=== PATIENT | female | born 1940 | race Caucasian/White ===

== ENCOUNTER 2022-11-09 10:11 | Day surgery (SDC) | payer MEDICARE, BC, OTHER, SELFPAY ==
[2022-11-09] MEDS: TETRACAINE 0.5% OPHTH 1 DROP EYE-LEFT ×2 (10:42→10:51)
[2022-11-09 10:47] VITALS: BMI 19.3
[2022-11-09] MEDS: KETOROLAC OPHTH 0.5% 1 DROP EYE-LEFT ×3 (10:49→11:09)
[2022-11-09 11:07] VITALS: BP 122/69; PULSE 58; RESP 16; TEMP 36.5; O2SAT 97
[2022-11-09] MEDS: SODIUM CHLORIDE 0.9 % (FLUSH) 10 ML SYRINGE IVF (11:11)
[2022-11-09] MEDS: TETRACAINE 0.5% OPHTH 2 DROP EYE-LEFT (12:14)
[2022-11-09] MEDS: BALANCED SALT IRRIG SOLN 15 ML EYE-LEFT (12:19)
--- NOTE | 2022-11-09 12:23 | W.ANESCHARGE ---
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
[2022-11-09 12:45] VITALS: BP 148/62; PULSE 58; RESP 16; TEMP 36.4; O2SAT 97
[2022-11-09] MEDS: ACETAMINOPHEN 500 MG TABLET 1000 MG PO (13:20)
--- NOTE | 2022-11-09 13:48 | P.OPTPRC_ITS ---
Procedure Note Date of procedure: 11/09/22 Will [facility] bill your pro fee for this procedure?: Yes Procedure Description: SURGEON: Tammy Martin MD PREOPERATIVE DIAGNOSIS: Nuclear sclerotic cataract, left eye. POSTOPERATIVE DIAGNOSIS: Nuclear sclerotic cataract, left eye. NAME OF OPERATION: Phacoemulsification of cataract with posterior chamber intraocular lens implantation in the left eye. ANESTHESIA: Topical. ESTIMATED BLOOD LOSS: Less than 2 cc. COMPLICATIONS: None. PATHOLOGY SPECIMEN: None. INDICATIONS: See consult note for details. The risks, benefits and alternatives of the procedure were explained to the patient, who elected to proceed and sign ed informed consent to do so. PROCEDURE: The patient was brought to the pre-holding area where the left eye was identified as the operative eye. I placed my initials above this eye. The patient received eye drops consisting of 0.5% tetracaine, 1% tropicamide, 10% phenylephrine, and 0.5% ketorolac. The patient was then brought to the operating room where the left eye was again identified as the operative eye. The eye was prepped with Betadine and draped in the usual sterile ophthalmic fashion. A #15 super-sharp blade was used to create a paracentesis site. 1% non-preserved intracameral lidocaine was injected into the anterior chamber. Endocoat was injected into the anterior chamber. A 2.4 mm keratome was used to create a three-plane self-sealing incision 1 mm anterior to the temporal limbus. A cystotome was used to create an anterior capsular leaflet. The Utrata forceps were used to extend this to form a continuous curvilinear capsulorrhexis. Hydrodissection was performed. The cataract was removed with phacoemulsification using the [id number] technique. The irrigation and aspiration tip was used to remove the remaining cortex. Healon was injected into the capsular bag. An ERIC ZCB00 intraocular lens of 20.5 diopters was injected into the capsular bag. The irrigation and aspiration tip was used to remove the remaining viscoelastic. Miostat was injected into the anterior chamber. Balanced salt solution on a cannula was used to hydrate the wound, and the wound was found to be watertight. The pupil was noted to be round. DISPOSITION: The patient was taken to the recovery room and discharged to home in stable condition. The patient was instructed to call me or go to the emergency department with any sudden change, including dramatic loss of vision, severe pain in the eye or eyebrow region, nausea, or vomiting. The patient will follow up in the clinic tomorrow morning. Surgeon: Tammy Martin MD
== END 2022-11-09 13:26 | disposition home or self-care (01) ==
PROVIDERS: PCP Family Medicine; Visit Provider Ophthalmology
PROC: (CPT 66984; principal; 2022-11-09 10:30)
DX: H25.12 Age-related nuclear cataract, left eye (principal)
CPT/HCPCS: 66984; 00142; 99100; A9270; J2250; J3010; V2632

== ENCOUNTER 2022-12-14 07:59 | Day surgery (SDC) | payer MEDICARE, BC, OTHER, SELFPAY ==
[2022-12-14] MEDS: TETRACAINE 0.5% OPHTH 1 DROP EYE-RIGHT ×2 (08:10→08:19)
[2022-12-14] MEDS: KETOROLAC OPHTH 0.5% 1 DROP EYE-RIGHT ×3 (08:17→08:29)
[2022-12-14 08:18] VITALS: BMI 19.9
[2022-12-14 08:25] VITALS: BP 122/67; PULSE 61; RESP 20; TEMP 36.7; O2SAT 97
[2022-12-14] MEDS: SODIUM CHLORIDE 0.9 % (FLUSH) 10 ML SYRINGE IVF (08:36)
--- NOTE | 2022-12-14 10:10 | W.ANESCHARGE ---
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
[2022-12-14] MEDS: TETRACAINE 0.5% OPHTH 2 DROP EYE-RIGHT (10:14)
[2022-12-14] MEDS: BALANCED SALT IRRIG SOLN 15 ML EYE-RIGHT (10:19)
--- NOTE | 2022-12-14 10:19 | P.ANES_ITS ---
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
[2022-12-14 10:47] VITALS: BP 145/64; PULSE 58; RESP 16; TEMP 36.7; O2SAT 99
--- NOTE | 2022-12-14 12:59 | W.PM.OPTPROC ---
Procedure Note Date of procedure: 12/14/22 Will [facility] bill your pro fee for this procedure?: Yes Procedure Description: SURGEON: Tammy Martin MD PREOPERATIVE DIAGNOSIS: Nuclear sclerotic cataract, right eye. POSTOPERATIVE DIAGNOSIS: Nuclear sclerotic cataract, right eye. NAME OF OPERATION: Phacoemulsification of cataract with posterior chamber intraocular lens implantation in the right eye. ANESTHESIA: Topical. ESTIMATED BLOOD LOSS: Less than 2 cc. COMPLICATIONS: None. PATHOLOGY SPECIMEN: None. INDICATIONS: See consult note for details. The risks, benefits and alternatives of the procedure were explained to the patient, who elected to proceed and signed informed consent to do so. PROCEDURE: The patient was brought to the pre-holding area where the right eye was identified as the operative eye. I placed my initials above this eye. The patient received eye drops consisting of 0.5% tetracaine, 1% tropicamide, 10% phenylephrine, and 0.5% ketorolac. The patient was then brought to the operating room where the right eye was again identified as the operative eye. The eye was prepped with Betadine and draped in the usual sterile ophthalmic fashion. A #15 super-sharp blade was used to create a paracentesis site. 1% non-preserved intracameral lidocaine was injected into the anterior chamber. Endocoat was injected into the anterior chamber. A 2.4 mm keratome was used to create a three-plane self-sealing incision 1 mm anterior to the temporal limbus. A cystotome was used to create an anterior capsular leaflet. The Utrata forceps were used to extend this to form a continuous curvilinear capsulorrhexis. Hydrodissection was performed. The cataract was removed with phacoemulsification using the [id number] technique. The irrigation and aspiration tip was used to remove the remaining cortex. Healon was injected into the capsular bag. An ERIC ZCB00 intraocular lens of 20.5 diopters was injected into the capsular bag. The irrigation and aspiration tip was used to remove the remaining viscoelastic. Miostat was injected into the anterior chamber. Balanced salt solution on a cannula was used to hydrate the wound, and the wound was found to be watertight. The pupil was noted to be round. DISPOSITION: The patient was taken to the recovery room and discharged to home in stable condition. The patient was instructed to call me or go to the emergency department with any sudden change, including dramatic loss of vision, severe pain in the eye or eyebrow region, nausea, or vomiting. The patient will follow up in the clinic tomorrow morning. Surgeon: Tammy Martin MD
== END 2022-12-14 11:15 | disposition home or self-care (01) ==
LOC: OR 07:59
PROVIDERS: PCP Family Medicine; Visit Provider Ophthalmology
PROC: (CPT 66984; principal; 2022-12-14 08:15)
DX: H25.11 Age-related nuclear cataract, right eye (principal)
CPT/HCPCS: 66984; 00142; 99100; A9270; J2250; J3010; V2632

== ENCOUNTER 2022-12-31 19:21 | Emergency (ER) | payer MEDICARE, BC, OTHER, SELFPAY ==
[2022-12-31 19:29] VITALS: BP 147/69; PULSE 59; RESP 20; TEMP 37.1; O2SAT 100; BMI 19.2
--- NOTE | 2022-12-31 19:37 | CRLHL7_ITS ---
For Patients: As a result of the Cures Act, medical imaging exams and procedure reports are released immediately into your electronic medical record. You may view this report before your referring provider. If you have questions, please contact your health care provider. INDICATION: Fall, head lac posterior. COMPARISON: None. TECHNIQUE: CT of the head without IV contrast. Coronal and sagittal reconstructions. FINDINGS: No intracranial hemorrhage, mass effect, or evidence of acute infarct. No midline shift. No abnormal extra-axial fluid collections. Mild to moderate generalized cerebral and cerebellar volume loss with associated ex vacuo dilation of the lateral ventricles. Orbits and extraocular muscles are symmetric. The visualized paranasal sinuses and mastoid air cells are clear. No acute fracture identified. Minimal soft tissue irregularity in the right posterior parietal scalp. No significant soft tissue swelling. IMPRESSION: 1. No acute intracranial findings. 2. Minimal soft tissue irregularity in the right posterior parietal scalp likely represents the site of laceration. No significant soft tissue swelling. Please note that all CT scans at this facility use dose modulation, iterative reconstruction, and/or weight-based dosing when appropriate to reduce radiation dose to as low as reasonably achievable. Dictated by Lindsey Storm MD @ 12/31/2022 8:42:27 PM (Electronically Signed)
--- NOTE | 2022-12-31 19:59 | ED.GENADULT ---
HPI - General Adult General Date Seen: 12/31/22 Chief complaint: Laceration/Wound Stated complaint: fell, split back of head Time Seen by Provider: 12/31/22 19:34 Source: patient Mode of arrival: ambulatory Limitations: no limitations History of Present Illness HPI narrative: Patient is an 82-year-old woman, she lives independently, here with her son for evaluation of a scalp laceration. She says that she lost her balance and fell backward, hitting it on an antique love seat with a sharp edge. She says that she did not lose consciousness. She denies significant headache, nausea, or other symptoms. She does not take any anticoagulants aside from a baby aspirin. She denies neck pain. The wound was continuing to bleed and they were concerned that the edges would not stay together without attention and so she comes in for evaluation. No recent other injuries or illnesses. Related Data Home Medications Medication Instructions Recorded Confirmed acetaminophen 500 mg tablet 500 mg PO Q6H PRN 11/07/22 12/31/22 aspirin 81 mg chewable tablet 81 mg PO DAILY 11/07/22 12/31/22 atorvastatin 20 mg tablet 20 mg PO DAILY 11/07/22 12/31/22 cholecalciferol (vitamin D3) 25 1,000 unit PO DAILY 11/07/22 12/31/22 mcg (1,000 unit) capsule docusate sodium 100 mg capsule 100 mg PO BID PRN 11/07/22 12/31/22 (Colace) levothyroxine 25 mcg capsule 25 mcg PO DAILY 11/07/22 12/31/22 metoprolol succinate 25 mg 25 mg PO DAILY 11/07/22 12/31/22 tablet,extended release 24 hr mirtazapine 15 mg tablet 15 mg PO QHS 11/07/22 12/31/22 multivitamin (Daily Multi-Vitamin 1 tab PO DAILY 11/07/22 12/31/22 tablet) quinapril 10 mg tablet (Accupril) 10 mg PO DAILY 11/07/22 12/31/22 ketorolac 0.5 % eye drops 1 drp ophthalmic (eye) QID 12/31/22 12/31/22 prednisolone acetate 1 % eye 1 drp ophthalmic (eye) QID 12/31/22 12/31/22 drops,suspension Allergies Allergy/AdvReac Type Severity Reaction Status Date / Time Penicillins Allergy Unknown Verified 12/31/22 19:28 Sulfa (Sulfonamide Allergy Unknown Verified 12/31/22 19:28 Antibiotics) Review of Systems Status of ROS: Reports: 6 or more systems reviewed and unremarkable except as noted in History and below [facility] Medical History Acquired hyperlipoproteinemia ?E78.5 - Hyperlipidemia, unspecified (ICD-10) Cataract ?H26.9 - Unspecified cataract (ICD-10) Episodic atrial fibrillation ?I48.0 - Paroxysmal atrial fibrillation (ICD-10) Essential (primary) hypertension ?I10 - Essential (primary) hypertension (ICD-10) Hypothyroidism ?E03.9 - Hypothyroidism, unspecified (ICD-10) Osteopenia of multiple sites ?M85.89 - Other specified disorders of bone density and structure, multiple sites (ICD-10) Surgical History History of repair of hiatal hernia ?Z98.890 - Other specified postprocedural states (ICD-10) ?Z87.19 - Personal history of other diseases of the digestive system (ICD-10) S/P CABG x 3 ?Z95.1 - Presence of aortocoronary bypass graft (ICD-10) Social History Smoking Status: Former smoker How often do you have a drink containing alcohol: never AUDIT-C Alcohol total score: 0 Non-prescribed substance use: denies use Caffeine: No Exam Narrative: Exam Narrative: Vital signs reviewed In general, an alert, well-appearing elderly woman. Head: Normocephalic. On the right posterior scalp she has a just over 1 cm laceration. Bleeding is controlled. Small underlying hematoma is noted. Remainder the head is atraumatic. Neck: Nontender to palpation. Eyes: Pupils are equal and reactive. ENT: No facial trauma. Heart: Regular rate and rhythm. Lungs: Clear. No increased work of breathing. Neurologic: She is alert, conversant, oriented to person and place, gait stable. Skin: Warm and dry, no rash or lesion. 0. Const: Vital Signs, click to edit/add: Vital Signs - 24 hr 12/31/22 19:29 Temperature 98.7 F Pulse Rate [Left P ulse Oximeter] 59 L Respiratory Rate 20 Blood Pressure [Ri ght Upper Arm] 147/69 H Pulse Oximetry 100 Oxygen Delivery Me thod Room Air Nasal Can nula Documenting provider has reviewed patient's vital signs: yes Course Course Hospital Course: I recommended a CT of the head given her age and scalp hematoma. Regarding the scalp laceration, I felt it would be reasonable to close this using hair apposition. Procedure note: The wound was cleaned using normal saline, explored there is no evidence of foreign body. Edges were approximated and held in place with hair apposition. Dermabond was applied. She tolerated this well without immediate complication. CT of the head by my review is negative for hemorrhage or other acute findings. Final radiology report is negative aside from some swelling noted at the site of the laceration. Wound care discussed. Return for signs of infection or changes in mentation, severe headache, vomiting, etcetera. Vital Signs Vital signs: Initial Vital Signs Temperature 98.7 F 12/31/22 19:29 Temperature Source Temporal Artery Scan 12/31/22 19:29 Pulse Rate 59 L 12/31/22 19:29 Pulse Rhythm Regular 12/31/22 19:29 Pulse Strength 3+ Normal 12/31/22 19:29 Respiratory Rate 20 12/31/22 19:29 Blood Pressure 147/69 H 12/31/22 19:29 Blood Pressure Mean 95 12/31/22 19:29 Blood Pressure Position Sitting 12/31/22 19:29 Pulse Oximetry 100 12/31/22 19:29 Oxygen Delivery Method Room Air, Nasal Cannula 12/31/22 19:29 Vital Signs Temperature 98.7 F 12/31/22 19:29 Pulse Rate 59 L 12/31/22 19:29 Respiratory Rate 20 12/31/22 19:29 Blood Pressure 147/69 H 12/31/22 19:29 Pulse Oximetry 100 12/31/22 19:29 Oxygen Delivery Method Room Air, Nasal Cannula 12/31/22 19:29 Temperature 98.7 F 12/31/22 19:29 Pulse Rate 59 L 12/31/22 19:29 Respiratory Rate 20 12/31/22 19:29 Blood Pressure 147/69 H 12/31/22 19:29 Pulse Oximetry 100 12/31/22 19:29 Oxygen Delivery Method Room Air, Nasal Cannula 12/31/22 19:29 Discharge Plan Discharge Clinical Impression: Laceration of scalp Patient Disposition: Home, Self-Care Condition: Improved Instructions: Laceration (ED), Skin Adhesive Care (ED) Additional Instructions: Routine wound care. As discussed, after about 10 days if the Dermabond has not sloughed off yet, acetone nail Bel[place]ian remover or antibiotic ointment left on the wound for about 30 minutes will soften the glue so that it can be more easily removed. Return to the emergency department for signs of infection, severe headache, vomiting, confusion or other changes. CT of the head today is normal without any evidence of intracranial bleeding. Prescriptions: No Action acetaminophen 500 mg tablet 500 mg PO Q6H PRN aspirin 81 mg tablet,chewable 81 mg PO DAILY atorvastatin 20 mg tablet 20 mg PO DAILY cholecalciferol (vitamin D3) 25 mcg (1,000 unit) capsule 1,000 unit PO DAILY docusate sodium [Colace] 100 mg capsule 100 mg PO BID PRN levothyroxine 25 mcg capsule 25 mcg PO DAILY metoprolol succinate 25 mg tablet extended release 24 hr 25 mg PO DAILY mirtazapine 15 mg tablet 15 mg PO QHS multivitamin [Daily Multi-Vitamin] Tablet 1 tab PO DAILY quinapril [Accupril] 10 mg tablet 10 mg PO DAILY ketorolac 0.5 % drops 1 drp ophthalmic (eye) QID prednisolone acetate 1 % drops,suspension 1 drp ophthalmic (eye) QID Follow Up/Referrals: Natalia Everett DO [Primary Care Provider] - Stand Alone Forms: [facility] Info Instructions
[2022-12-31] MEDS: TETANUS/DIPHTH/PERTUSSIS 0.5 ML SYRINGE IM (20:09)
== END 2022-12-31 21:24 | disposition home or self-care (01) ==
PROVIDERS: Emergency Provider Emergency Medicine; PCP Family Medicine
DX: S01.01XA Laceration without foreign body of scalp, initial encounter (principal); W01.190A Fall on same level from slipping, tripping and stumbling with subsequent striking against furniture, initial encounter; Z23 Encounter for immunization
CPT/HCPCS: 12001; 70450; 90471; 90715; 99283; 99284

== ENCOUNTER 2023-10-20 10:47 | Outpatient (CLI) | payer MEDICARE, BC, OTHER, SELFPAY ==
--- OUTSIDE RECORDS SUMMARY | 2023-10-20 10:53 | XMS_ITS | Clinical Summary ---
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 Max acetaminophen dose: 4000mg in 24 hrs. 0 05/27/2022 Active docusate (COLACE) 100 mg capsule Take 1 Capsule (100 mg) by mouth 2 times daily if needed for Constipation. 0 05/27/2022 Active aspirin chewable 81 mg chewable tablet Chew 1 Tablet (81 mg) by mouth once daily with a meal. 0 05/27/2022 Active cholecalciferol (VITAMIN D3) 1,000 unit capsule Take 1 Capsule (1,000 units) by mouth once daily. 0 09/16/2022 Active multivitamin (MVI) tablet Take 1 Tablet by mouth once daily. 0 09/16/2022 Active ondansetron (ZOFRAN ODT) 4 mg disintegrating tabletIndications:D iaphragmatic hernia without obstruction and without gangrene Place 1 Tablet (4 mg) on the tongue every 8 hours if needed for Nausea/Vomiting. 15 Tablet 0 10/13/2022 Active polyethylene glycoL (MIRALAX) 17 gram/scoop powderIndications:D iaphragmatic hernia without obstruction and without gangrene Mix 1 scoop (17 g) in liquid then take by mouth once daily. Take one dose in water daily until bowels are easy and regular. Then return to your daily Colace. 510 g 0 10/14/2022 Active atorvastatin (LIPITOR) 20 mg tabletIndications:M ixed hyperlipidemia Take 1 Tablet (20 mg) by mouth at bedtime. 90 Tablet 3 10/11/2023 Active levothyroxine (SYNTHROID) 25 mcg tabletIndications:H ypothyroidism (acquired) Take 1 Tablet (25 mcg) by mouth once daily. 90 Tablet 3 10/11/2023 Active mirtazapine (REMERON) 15 mg tabletIndications:I nsomnia, idiopathic,Poor appetite,Anxiety Take 1 Tablet (15 mg) by mouth at bedtime. 90 Tablet 3 10/11/2023 Active metoprolol succinate (TOPROL XL) 25 mg Sustained-Release tabletIndications:H TN (hypertension) Take 1 Tablet (25 mg) by mouth once daily. 90 Tablet 3 10/11/2023 Active lisinopriL (PRINIVIL; ZESTRIL) 10 mg tabletIndications:H TN (hypertension) Take 1 Tablet (10 mg) by mouth once daily. 90 Tablet 3 10/11/2023 Active fluocinonide 0.05 TOPICAL (LIDEX) 0.05 % external solutionIndications :Atopic dermatitis of scalp Apply topically to affected area(s) two times daily for 14 days. 60 mL 0 10/11/2023 10/25/19 24 Active levothyroxine (SYNTHROID) 25 mcg tabletIndications:H ypothyroidism (acquired) Take 1 Tablet (25 mcg) by mouth once daily. 90 Tablet 3 07/06/2022 10/10/19 24 Discontinu ed(Reorder (E-cancel not sent)) atorvastatin (LIPITOR) 20 mg tabletIndications:M ixed hyperlipidemia Take 1 Tablet (20 mg) by mouth at bedtime. 90 Tablet 3 07/06/2022 10/10/19 24 Discontinu ed(Reorder (E-cancel not sent)) lidocaine 5 % topical patchIndications:Ri b pain on left side Apply on dry, clean, hairless skin. Apply 1 patch to painful area of skin for up to to 12 hours within 24 hour period. 30 Patch 11 10/26/2022 10/11/19 24 Discontinu ed(*Patien t states no longer taking) ketorolac 0.5 % ophthalmic (ACULAR) solution 1 DROP TO OPERATIVE EYE 4 TIMES A DAY STARTING AFTER SURGERY 0 10/27/2022 10/11/19 24 Discontinu ed(*Patien t states no longer taking) prednisoLONE acetate 1% ophthalmic (ECONOPRED PLUS, PRED FORTE, OMNIPRED) suspension 1 DROP TO OPERATIVE EYE 4 TIMES A DAY STARTING AFTER SURGERY 0 10/27/2022 10/11/19 24 Discontinu ed(*Patien t states no longer taking) ofloxacin 0.3 % ophthalmic (OCUFLOX) 0.3 % ophthalmic solution 1 DROP TO OPERATIVE EYE 4 TIMES A DAY STARTING MONDAY BEFORE SURGERY 0 10/27/2022 10/11/19 24 Discontinu ed(*Patien t states no longer taking) lisinopriL (PRINIVIL; ZESTRIL) 10 mg tabletIndications:H TN (hypertension) Take 1 Tablet (10 mg) by mouth once daily. 90 Tablet 3 01/27/2023 10/10/19 Discontinu ed(Reorder (E-cancel not sent)) mirtazapine (REMERON) 15 mg tabletIndications:I nsomnia, idiopathic,Poor appetite,Anxiety TAKE 1 TABLET BY MOUTH AT BEDTIME 90 Tablet 0 08/11/2023 10/10/19 Discontinu ed(Reorder (E-cancel not sent)) metoprolol succinate (TOPROL XL) 25 mg Sustained-Release tabletIndications:H TN (hypertension) TAKE 1 TABLET BY MOUTH EVERY DAY 90 Tablet 0 08/25/2023 10/10/19 24 Discontinu ed(Reorder (E-cancel not sent)) Active Problems Problem Noted Date Diagnosed Date Osteopenia of multiple sites 07/06/2022 Hypothyroidism (acquired) 05/27/2022 HTN (hypertension) 05/27/2022 Hyperlipidemia, unspecified 05/27/2022 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 Diaphragmatic hernia without obstruction and without gangrene Encounters Date Type Department Care Team Description 10/13/2023 Telephone [facility] [address] [place] [address] Natalia Everett DO Follow Up (Preop appointment) 10/11/2023 3:00 PM [employer] Office Visit [facility] [address] [place] [address] Luis Antonio Acevedo MD Consult (Difficulty swallowing x 4 months, foods get stuck, uses liquids with meals to pass, vitamins get stuck) 10/11/2023 8:05 AM [employer] Office Visit [address] [address] Natalia Everett DO Medicare ANNUAL (subsequent) Visit (83 year old female); Throat Problem (Difficulty swallowing - worse in the evening - did choke 6 weeks ago); Arm Pain/problem (Pain in L arm, worse with trying to dress - thinks this is due to arthritis in back); Sleep Problem (If she falls asleep while resting during the day will be up all night, this happens 1-2x/month); Derm Problem (Pt reports picking at her scalp) 10/11/[address] [address] Luis Antonio Acevedo MD Pre Procedure (EGD) 10/11/2023 Travel 09/06/2023 3:50 PM [employer] Phone Office Visit [address] [address] Natalia Everett DO Phone Visit (COVID-19 +, discuss Paxlovid - cough, runny nose, hoarsness - symptoms started Tuesday 09/04 - no SOB) 09/05/[address] [address] Natalia Everett DO Covid-19 Positive Result (09/05/2023 via over the counter nasal swab testing kit) 08/25/2023 Refill [facility] [address] [place] [address] Marguerite Natalia Lauren, DO Refill Request (Metoprolol Succinate) 08/11/2023 Refill [facility] [address] [place] [address] Sir Everetti Lauren, DO Refill Request (Mirtazapine) from Last 3 Months Immunizations Name Administration Dates Next Due COVID-19 vaccine (Moderna 10 0mcg/0.5mL) PF, MDV 08/03/2021,11/18/2020,10/21/2020 COVID-19 vaccine (Moderna Earnest kelley 50mcg/0.25mL) PF, MDV 01/20/2022 COVID-19 vaccine ([employer] 30mcg/0.3mL) 12YO+ BIVALENT PF, MDV 07/06/2022 Influenza, High-dose Inactivated 07/02/2021,11/2018,07/21/2017 Influenza, High-dose Quadriv alent Inactivated 07/07/2022 Influenza, IIV3 (Age 6-35 mos) 07/17/2014,2012,07/16/2012 Influenza, IIV3 (Age >=3 years) 07/08/2011,07/13 Influenza, IIV4 07/05/2018,07/08/2016,07/15/2015 Influenza, Inactivated AIIV4 (Age 65+ Years) Preserv Free 06/28/2023 Influenza,CCIIV4 PRESERV FREE 06/17/2020 Pneumococcal Poly,23-Valent (Pneumovax) 05/17/20 11 Pneumococcal conj 13-Valent (Prevnar 13) 015 Tdap 12/31/2022,07/02/2013 Zoster (Shingrix-RZV, recombinant) 02/19/2022, Social History Tobacco Use Types Packs/Day Years Used Date Smoking Tobacco: Former Cigarettes 1 2 0 10/02/1960 - 10/02/1962 Smokeless Tobacco: Never Tobacco Cessation:Counseling Given: Yes Comments:Quit smoking in my 30s Alcohol Use Standard Drinks/Week Comments Not Currently 0 (1 standard drink = 0.6 oz pur e alcohol) No liquor for 12 years PHQ-2 Answer Date Recorded PHQ-2 TOTAL SCORE 0 10/11/2023 Social Connections Answer Date Recorded Frequency of Communication with Friends and Fami ly Not on file 04/06/2023 Financial Resource Strain Answer Date R ecorded Difficulty of Paying Living Expenses 3 04/05/2022 Difficulty of Paying Living Expenses Not on file 04/05/2022 Food Insecurity Answer Date Recorded Worried About Running Out of Food in the Last Ye ar 1 04/05/2022 Transportation Needs Answer Date Record ed Lack of Transportation (Medical) 1 04/05/2022 Housing Stability Answer Date Recorded Unable to Pay for Housing in the Last Year 1 04/05/2022 Sex and Gender Information Value Date Recorded Sex Assigned at Not on file Gender Identity Not on file Sexual Orientation Not on file Obstetrics History Last Filed Vital Signs Vital Sign Reading Time Taken Comments Blood Pressure 138/64 10/11/2023 2:57 PM [employer] Pulse 55 10/11/2023 2:57 PM [employer] Temperature 36.6 ??C (97.8 ??F) 11/30/2022 10:[address] Respiratory Rate 16 10/13/2022 9:27 AM [employer] Oxygen Saturation 100% 10/11/2023 2:57 PM [employer] Inhaled Oxygen Concentration - - Weight 50.4 kg (111 lb 3.2 oz) 10/11/2023 2:57 P M [employer] Height 150.2 cm (4' 11.13) 10/11/2023 8:[address] Body Mass Index 22.36 10/11/2023 8:17 AM [employer] Plan of Treatment Upcoming Encounters Date Type Department Care Team (Late st Contact Info) Description 10/23/2023 1:15 PM [employer] Procedure Only [facility] [address] [place] [address] Luis Antonio Acevedo MD [address] [place] [address] 11/03/2023 9:30 AM [employer] Office Visit [facility] [address] [place] [address] Luis Gonsalez MD [address] [facility] [address] [place] [address] Health Maintenance Due Date Last Done Comments Medicare Wellness for age 65+ 10/10/2024 10/11/2023, 07/06/2022 BMI (ht and wt on same day) for age 18+ 10/11/2024 10/11/2023, 11/30/2022, 10/25/2022, Additional history exists Depression screening for age 12+ 10/13/2024 10/13/2023, 10/11/2023, 10/11/2023, Additional history exists Tetanus booster 12/31/2032 12/31/2022, 07/02/2013 Pneumococcal series for age 65+ Completed 5, 05/17/2011 Zoster (shingles) series for age 50+ Completed 02/19/2022, 12/07/2021 Tdap Completed 12/31/2022, 07/02/2013 DEXA/DXA scan for age 65+ Completed 04/03/2023 Influenza for age 65+ Completed 06/28/2023 , 07/07/2022, 07/02/2021, Additional history exists COVID-19 vaccine series Completed 07/13/20 23, 07/06/2022, 01/20/2022, Additional history exists Procedures Procedure Name Priority Date/Time Associated Diagnosis Comments LIPID PANEL W REFLEX MEASURED LDL Routine 10/11/2023 9:35 AM [employer] Mixed hyperlipidemia BASIC METABOLIC PANEL Routine 10/11/2023 9:35 AM [employer] HTN (hypertension) TSH Routine 10/11/2023 9:35 AM [employer] Hypothyroidism (acquired) from Last 3 Months Results * (ABNORMAL) LIPID PANEL W REFLEX MEASURED LDL (10/11/2023 9:35 AM [employer]) CHOLESTEROL,TOTAL 142 100 - 199 mg/dL 10/11/2023 4:09 PM [employer] [facility] Comment: Cholesterol, Total Reference Ranges Desirable <200 mg/dL Borderline 200-239 mg/dL High >=240 mg/dL TRIGLYCERIDES 186(H) <150 mg/dL 10/11/2023 4:09 PM [employer] [facility] HDL CHOLESTEROL 53 >40 mg/dL 4:09 PM [facility] NON-HDL CHOLESTEROL 89 <145 mg/dl 10/11/2023 4:09 PM [facility] CHOL/HDL RATIO 2.68 <4.50 10/11/2023 4:09 PM [employer] [facility] LDL CHOLESTEROL 52 <=130 mg/dL 10/11/2023 4:09 PM [facility] VLDL CHOLESTEROL 37(H) <=30 mg/dL 10/11/2023 4:09 PM [facility] PROVIDER ORDERED STATUS RANDOM 10/11/2023 4:09 PM [facility] Blood BLOOD SPECIMEN / Unknown Venipuncture / Unknown 10/11/2023 9:35 AM [employer] 10/11/2023 9:37 AM [employer] CHEMISTRY Performing Organization Address [facility] Co de Phone Number [facility] [address] [place] [address], * TSH (10/11/2023 9:35 AM [employer] MANA[employer]) TSH 3.42 0.27 - 4.20 uIU/mL 10/11/2023 4:09 PM [employer] MANAGER [facility] Blood BLOOD SPECIMEN / Unknown Venipuncture / Unknown 10/11/2023 9:35 AM [employer] 10/11/2023 9:37 AM [employer] Narrative [facility] - 10/11/2023 4:09 PM [employer] MANAGER In Adults, TSH values between 5.00 and 10.00 uIU/ml do not necessarily indicate the presence of Hypothyroidism. Correlation with clinical findings such as presence of goiter and/or Thyroperoxidase (TPO) Antibody may be helpful. For more information please refer to NAVID 2004; 291: 228-238. [employer]pi CHEMISTRY Performing Organization Address [facility]/ZIP Co de Phone Number [facility] [address] [place] [address] * (ABNORMAL) BASIC METABOLIC PANEL (10/11/2023 9:35 AM [employer]) SODIUM 141 136 - 145 mmol/L 10/11/2023 4:09 PM [facility] POTASSIUM 5.1 3.5 - 5.1 mmol/L 10/11/2023 4:09 PM [facility] CHLORIDE 104 98 - 107 mmol/L 10/11/2023 4:09 PM [facility] CO2,TOTAL 27 22 - 29 mmol/L 10/11/2023 4:09 PM [facility] ANION GAP 10 5 - 18 10/11/2023 4:09 PM [facility] GLUCOSE 93 70 - 99 mg/dL 10/11/2023 4:09 PM [facility] CALCIUM 9.9 8.8 - 10.2 mg/dL 10/11/2023 4:09 PM [facility] BUN 32(H) 8 - 23 mg/dL 10/11/2023 4:09 PM [facility] CREATININE 0.86 0.50 - 0.90 mg/dL 10/11/2023 4:09 PM [facility] BUN/CREAT RATIO 37(H) 10 - 20 4:09 PM [facility] eGFR 66(L) >90 mL/min/1.7 3m2 10/11/2023 4:09 PM [facility] Comment:As of 2021, eG FR is calculated by the CKD-EPI creatinine equation without race adjustment. ??eGFR can be influenced by muscle mass, exercise, and diet. ??The reported eGFR is an estimation only and is only applicable if the renal function is stable. Blood BLOOD SPECIMEN / Unknown Venipuncture / Unknown 10/11/2023 9:35 AM [employer] 10/11/2023 9:37 AM [facility] Natalia Everett DO CHEMISTRY [facility] [address] [place] [address], from Last 3 Months Advance Directives Documents on File Type Date Recorded Patient Instructional Services Specialist Expl anation Healthcare Directive 02/12/2022 022 Latest Code Status on File Code Status Date Activated Date Inactivated Comments Full Code 10/13/2022 6:54 AM 10/13/2022 2:54 PM Question Answer Comments Code Status Discussion: Reviewed Preferences Code Status History Code Status Date Activated Date Inactivated Comments Full Code 10/12/2022 11:07 AM 10/13/2022 6:54 AM Question Answer Comments Code Status Discussion: Unable to Assess Preferences, Provider to review later Full Code 09/23/2022 11:40 AM 09/23/2022 3:01 PM Question Answer Comments Code Status Discussion: Reviewed Preferences Care Teams Hand Method Lasting Machine Operator Relationship Specialty Start Date End Date Natalia Everett DO [address] [place] [address] PCP - General Family Practice 04/05/22
--- OUTSIDE RECORDS SUMMARY | 2023-10-20 10:53 | XMS_ITS | Encounter Summary ---
Author Name Unknown Organization [facility] Address [address] [place] [address] Care Team Providers Care Bookseamer Blindstitch Name Role Phone Elsewhere, Pcp Primary Care Provider Unavailabl e Reason for Referral * Outpatient (Routine) - Closed Specialty Diagnoses / Procedures Referred By Contac t Referred To Contact Diagnoses Scoliosis Pain Myofascial Procedures PM Trigger point injection Emely Myers P.A.-C., M.S. [address] [place] [address] [facility] Referral ID Status Reason Start Date Expiration Date Visits Re quested Visits Authorized [id number] Closed 12/30/2022 12/30/2023 1 1 Reason for Visit * Outpatient (Routine) - Closed Specialty Diagnoses / Procedures Referred By Contac t Referred To Contact Pain Medicine Diagnoses Scoliosis Kyphosis Jose Dixon, PATRICIO, C.N.P. [address] [place] [phone] [facility] Referral ID Status Reason Start Date Expiration Date V isits Requested Visits Authorized [id number] Closed Specialty Services Required 12/01/2022 12/01/2023 1 1 Encounter Details Date Type Department Care Team (Latest Contact Info) Description 12/30/2022 9:30 AM CDT Comprehensive Visit Division of Pain Medicine in [place], [place] [address] [place] [phone] Emely Myers P.A.-C., M.S. [address] [place] [address] Pain Myofascial (Primary Dx); Scoliosis; Kyphosis Social History Tobacco Use Types Packs/Day Years Used Date Smoking Tobacco: Former Cigarettes 1 10 1 11/16/1957 - 1968 Smokeless Tobacco: Never Tobacco Cessation:Counseling Given: Not Answered Alcohol Use Standard Drinks/Week Comments Not Currently 0 (1 standard drink = 0.6 oz pur e alcohol) Humiliation, Afraid, Rape, and Kick questionnair e Answer Date Recorded Within the last year, have y ou been afraid of your partner or ex-partner? No 12/26/2022 Within the last year, have y ou been humiliated or emotionally abused in other ways by your partner or ex-partner? No Within the last year, have y ou been kicked, hit, slapped, or otherwise physically hurt by your partner or ex-partner? No 12/26/2022 Within the last year, have y ou been raped or forced to have any kind of sexual activity by your partner or ex-partner? No 12/26/2022 Social Connection and Isolat ion Panel [NHANES] Answer Date Recorded In a typical week, how many times do you talk on the phone with family, friends, or neighbors? More than three times a week 12/26/2022 How often do you get togethe r with friends or relatives? More than three times a week 12/26/2022 How often do you attend chur ch or confucianism services? More than 4 times per year 12/26/2022 Do you belong to any clubs o r organizations such as jainism groups, unions, fraternal or athletic groups, or school groups? Yes 12/26/2022 How often do you attend meet ings of the clubs or organizations you belong to? More than 4 times per year 12/26/2022 Are you , , di vorced, , never , or living with a partner? 12/26/2022 AUDIT-C Answer Date Recorded Q1: How often do you have a drink containing alc ohol? Never 12/26/2022 Average Number of Drinks Not on file 023 Frequency of Binge Drinking Not on file 12/01 Overall Financial Resource Strain (CARDIA) Answe r Date Recorded How hard is it for you to pa y for the very basics like food, housing, medical care, and heating? Not hard at all 12/26/2022 [facility] - Occupational Stress Questionnaire Answer Date Recorded Do you feel stress - tense, restless, nervous, or anxious, or unable to sleep at night because your mind is troubled all the time - these days? Not at all 12/26/2022 Exercise Vital Sign Answer Date Recorde d On average, how many days pe r week do you engage in moderate to strenuous exercise (like a brisk walk)? 0 days 12/26/2022 On average, how many minutes do you engage in exercise at this level? 0 min 12/26/2022 Hunger Vital Sign Answer Date Recorded Within the past 12 months, y ou worried that your food would run out before you got the money to buy more. Never true 12/27/19 23 Within the past 12 months, t he food you bought just didn't last and you didn't have money to get more. Never true 12/26/2022 PRAPARE - Transportation Answer Date Re corded In the past 12 months, has l ack of transportation kept you from medical appointments or from getting medications? No 12/01 In the past 12 months, has l ack of transportation kept you from meetings, work, or from getting things needed for daily living? No 12/26/2022 Housing Stability Vital Sign Answer Alessio e Recorded In the last 12 months, was t here a time when you were not able to pay the mortgage or rent on time? No 12/26/2022 In the last 12 months, how many places have you lived? 2 12/26/2022 In the last 12 months, was t here a time when you did not have a steady place to sleep or slept in a care home (including now)? No 12/26/2022 Nutrition Answer Date Recorded Nutrition: EVOO Fat Source No 12/26 On average, how many serving s of fruits and vegetables do you eat per day (serving size is equal to 1 cup or approximately the size of a tennis ball)? 0-1 12/26/2022 Dental Answer Date Recorded Dental: Regular Dentist Yes 12/27/19 Employment Answer Date Recorded Employment status Retired 12/26/2022 Education Answer Date Recorded What is the highest level of school you have completed or the highest degree you have received? Professional school degree (e.g., MD, DDS, DVM, SHYANNE) 12/26/2022 Sex and Gender Information Value Date Recorded Sex Assigned at Female 11/29/2022 8:21 PM AOC DIRECTOR INTELLIGENCE OFFICER Gender Identity Female 11/29/2022 8:21 PM AOC DIRECTOR INTELLIGENCE OFFICER Sexual Orientation Straight 11/29/2022 8: 21 PM AOC DIRECTOR INTELLIGENCE OFFICER documented as of this encounter Last Filed Vital Signs Vital Sign Reading Time Taken Comments Blood Pressure 137/54 12/30/2022 9:06 AM CDT Pulse 52 12/30/2022 9:06 AM CDT Temperature - - Respiratory Rate - - Oxygen Saturation - - Inhaled Oxygen Concentration - - Weight - - Height - - Body Mass Index - - documented in this encounter Consult Notes * Emely Myers P.A.-C., M.S. - 12/30/2022 9:30 AM CDT SUBJECTIVE REFERRING PROVIDER Jose Dixon, BUSINESS SUPPORT LIAISON, C.N.P. [address] [place] [address] CHIEF COMPLAINT / REASON FOR VISIT: 1. Scoliosis 2. Kyphosis HISTORY OF PRESENT ILLNESS: Ingrid Granger is a 82 y.o. female with a history of chronic low back and flank pain who is presenting with left flank pain to discuss the option of interventions or peripheral nerve stimulation. She presents today with her fttgjryr-rh-set. She endorses onset of pain in 2019 without eliciting event. This pain is located to the left hip that can radiate to left flank and anterior lateral abdominal at times. This pain is described as a constant pain that can become a stabbing and aching. Pain is worse throughout the day with activity including getting in out of a car and walking. Pain is improved with lying down on her right side. Shedenies any numbness or tingling in the painful region. Ms. Granger has undergone formal physical therapy with trial of TENs unit and belt. She endorses improvement with the TENs unit. She has trialed topical medications including lidocaine patches without benefit in pain. She is currently utilizing Tylenol extra strength 2 tablets 4 times a day but does not find this significantly beneficial. She is not trialed neuropathic medications or of this pain. She is currently taking Remeron for sleep. Patient does endorse a history of previous left shoulder pain. She is undergone 2 injections in theleft shoulder which have not provided significant improvement in pain. She was diagnosed for the right diaphragmatic hernia s/p repair in October 2022 with no improvement in left sided pain. Ingrid Granger denies recent fevers, chills, infections or antibiotics. No allergies to local anesthetic, corticosteroid, or contrast dye. 81 mg of aspirin daily. Pain score today: 4/10. OBJECTIVE History was reviewed including allergies, current medications, review of systems, family history, medical and surgical history, social history, and problem list. PHYSICAL EXAM General: Pleasant 82 year old female seated comfortably in exam room chair in no acute distress Skin: Skin is dry and intact across low back and left hip with no rashes, lesions, or erythema. Eyes: Pupils are 3 mm bilateral Lungs: Nonlabored respiration Musculoskeletal: Palpation: Tenderness with palpation in the left iliac crests where left lower rib meets iliac crests region Range of motion: Lumbar flexion extension is moderately diminished Provocative maneuvers: Gait: Nonantalgic Neuro: Strength: Strength is normal symmetric in lower extremity muscle groups Mental: Oriented to person, place, and time. Appropriate mood and affect. Recent and remote memory are intact. DIAGNOSTICS DX Entire Spine Scoliosis 2-3 Views Result Date: 12/30/2022 Impression: Full-length standing views of the entire spine obtained for scoliosis evaluation. Thoracolumbar scoliosis. Advanced degenerative arthritis throughout the entire spine. Compression fracture T9, T10 and T12 vertebral bodies with associated kyphosis. Posterior subluxation L1-L3 vertebral bodies. Osteopenia. 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 Sternotomy. Arterial calcifications. ASSESSMENT / PLAN Ingrid Granger is a 82 y.o. female with a history of chronic left flank and hip pain. 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 She does have noted compression fractures in the thoracic spine. She has trialed conservative treatment options including physical therapy and topical medications without significant improvement in pain. We have discussed the following plan. MEDICAL DECISION MAKING 1. Conservative: She will continue using the TENS unit as she finds benefit with this. 2. Medications: I have recommended trial of Voltaren gel. She can obtain this [id number]-kih-muffrjh and utilize 2-4 g 4 times a day as needed. 3. Injections/interventions: I have recommended trigger point injections along the left iliac crest/costal margin. At this time the patient does not have any contraindication undergoing this procedure. Risks and benefits reviewed. They stated understanding questions and concerns were answered. Theywere instructed to allow 2 weeks full benefit of the steroid medication. The informed consent was reviewed and signed with the patient today. 4. Imaging: may consider Thoracic MRI to assess neural compression in setting of T9 compression fracture. 5. Depending on results of injection patient may be a candidate for peripheral nerve stimulation. This was very briefly discussed with the patient today. FOLLOW-UP A formal follow-up has not been made at this time. This plan was discussed with Dr. Bowman. Total time: 60 minutes with >50% of the time spent in counseling and coordination. PATIENT EDUCATION Ready to learn, no apparent learning barriers were identified; learning preferences included listening. Explained diagnosis and treatment plan; patient expressed understanding of the content. documented in this encounter Plan of Treatment Not on file documented as of this encounter Results * SD INJ TRIGGER PNT<=2 MUS, SD US GUIDE PLC NDL, PROCEDURE PLACEHOLDER (01/12/2023 8:30 AM CDT) Narrative MMODAL - 01/12/2023 8:30 AM CDT Maribel Dover M.D. ? 01/12/2023 11:45 AM PM Trigger point injection (other)Performed by: Maribel Dover M.D. Authorized by: Emely Myers P.A.-C., M.S. Care team members present 1. Brice Nazario RVinayakN. PROCEDURE SUMMARY ?? Indication: Scoliosis, Myofascial Pain Pre procedure pain score: 0/10 Post procedure pain score: 0/10 Soft tissue site: other Other site: Left Iliac Crest Other position: side-laying with affected side up Preparation: Patient was prepped and draped in usual sterile fashion ?? Needle size: 25 G Needle length: 2 in Number of muscles injected: 1 or 2 muscles IMAGING Ultrasound image guidance used to localize target, identify at risk structures, and dynamically used to direct therapy to the target. Image(s) acquired and saved. Ultrasound probe (MHz): linear mid-frequency Needle visualization: in-plane INJECTED MEDICATIONS The injected medication(s) listed was divided equally between the identified injection location(s) ?? Total volume of injectate (mL): ??6 Total steroid in injectate (mg): ??40 5 mL BUPivacaine PF 0.75 % (7.5 mg/mL) 40 mg triamcinolone acetonide 40 mg/mL PROCEDURE DETAILS Other procedure description: The patient was placed in the appropriate position. Prior to the procedure, the affected area was examined to determine the location of the trigger point(s) and optimal needle path. Thereafter, a needle was advanced into the trigger point(s) and after negative aspiration, the medication was injected. Following the injection, the needle was withdrawn. ??The patient tolerated the procedure well and there were no apparent complications. ??After an appropriate amount of observation, the patient was dismissed from the clinic in good condition under their own power. ?? Complications: no apparent complications ?? CONSENT Consent obtained: written (Risks, benefits and alternatives were discussed and a written Informed Consent was obtained. Please see Informed Consent form for further details.) UNIVERSAL PROTOCOL All relevant documentation and testing were reviewed and available. All required blood products, implants, devices and or special equipment were made available as applicable. Pre-procedure verification was conducted and the correct site was marked if required. A fire risk assessment was done as applicable. The procedural time-out to verify correct patient, correct side/site, and procedure was conducted prior to performing the procedure and confirmed in a procedural pause. PRE-PROCEDURE DETAILS Appropriate hand hygiene, gown, cap, mask, protective eyewear, sterile gloves, skin preparation, sterile drape, and strict aseptic technique were utilized as applicable for the procedure. ?? Skin preparation: ??Chlorhexidine SEDATION / ANESTHESIA Anesthesia method: local infiltration Local infiltrate type: lidocaine ATTESTATION STATEMENT The teaching physician rule is not applicable. OPERATIVE NOTE INFORMATION Specimens: 0 Drains: 0 Estimated blood loss: 0 Implants: 0 Emely Myers P.A.-C. M.SVinayak PROCEDURE/ MINOR SURGICAL ORDERABLES MMODAL NA documented in this encounter Visit Diagnoses Diagnosis Pain Myofascial- Primary Scoliosis Kyphosis Scoliosis Pain Myofascial documented in this encounter Care Teams Bookseamer Blindstitch Relationship Specialty Start Date End Date Elsewhere, Pcp PCP - General Internal Medicine 12/30/22 documented as of this encounter
--- OUTSIDE RECORDS SUMMARY | 2023-10-20 10:53 | XMS_ITS | Encounter Summary ---
Author Name Unknown Organization [facility] Address [address] [place] [address] Care Team Providers Care Waiter/Waitress Club Name Role Phone Elsewhere, Pcp Primary Care Provider Unavailabl e Encounter Details Date Type Department Care Team (Late st Contact Info) Description 04/07/2023 Clinical Communication Division of Pain Medicine in [place], [place] [address] [place] [address] Emely Myers P.A.-C., M.S. [address] [place] [address] Social History Tobacco Use Types Packs/Day Years Used Date Smoking Tobacco: Former Cigarettes 1 10 1 11/16/1957 - 1968 Smokeless Tobacco: Never Alcohol Use Standard Drinks/Week Comments Not Currently [...] often do you attend chur ch or yazidi services? More than 4 times per year 12/26/2022 Do you belong to any clubs o r organizations such as holiness groups, unions, fraternal or athletic groups, or [...] and heating? Not hard at all 12/26/2022 [facility] - Occupational Stress Questionnaire Answer Date Recorded [...] place to sleep or slept in a retirement (including now)? No 12/26/2022 Nutrition Answer Date [...] Sex Assigned at Female 11/29/2022 8:21 PM BUTTON BROACHER Gender Identity Female 11/29/2022 8:21 PM BUTTON BROACHER Sexual Orientation Straight 11/29/2022 8: 21 PM BUTTON BROACHER documented as of this encounter Plan of Treatment Not on file documented as of this encounter Visit Diagnoses Not on filedocumented in this encounter Care Teams Waiter/Waitress Club Relationship Specialty Start Date End Date Elsewhere, Pcp PCP - General Internal Medicine 12/30/22 documented as of this encounter
--- OUTSIDE RECORDS SUMMARY | 2023-10-20 10:53 | XMS_ITS | Encounter Summary ---
Author Name Unknown Organization [facility] Address [address] [place] [address] Care Team Providers Care Traveling Freight Agent Name Role Phone Elsewhere, Pcp Primary Care Provider Unavailabl e Reason for Referral * Outpatient (Routine) - Closed Specialty Diagnoses / Procedures Referred By Contac t Referred To Contact Diagnoses Scoliosis Kyphosis Procedures DX Entire Spine Scoliosis 2-3 Views Jose Dixon APRN, C.N.P. [address] [place] [phone] [facility] Referral ID Status Reason Start Date Expiration Date Visits Re quested Visits Authorized [id number] Closed 12/01/2022 12/01/2023 1 1 Reason for Visit * Outpatient (Routine) - Closed Specialty Diagnoses / Procedures Referred By Contac t Referred To Contact Diagnoses Scoliosis Kyphosis Procedures DX Entire Spine Scoliosis 2-3 Views Jose Dixon APRN, C.N.P. [address] [place] [phone] [facility] Referral ID Status Reason Start Date Expiration Date Visits Re quested Visits Authorized [id number] Closed 12/01/2022 12/01/2023 1 1 Encounter Details Date Type Department Care Team (Latest Contact Info) Description 12/30/2022 6:55 AM CDT - 12/30/2022 11:59 PM CDT Hospital Encounter Department of Radiology, [facility], in [place], [place] [address] [place] [address] Jose Dixon, EDGE TRIMMING MACHINE OPERATOR, C.N.P. [address] [place] [address] Scoliosis; Kyphosis Discharge Disposition: Home or Self Care Social History Tobacco Use Types Packs/Day Years [...] often do you attend chur ch or cheondoism services? More than 4 times per year 12/26/2022 Do you belong to any clubs o r organizations such as cheondoism groups, unions, fraternal or athletic groups, or [...] and heating? Not hard at all 12/26/2022 [facility] - Occupational [...] place to sleep or slept in a detention (including now)? No 12/26/2022 Nutrition Answer Date [...] Sex Assigned at Female 11/29/2022 8:21 PM ACCIDENT REPORT CLERK Gender Identity Female 11/29/2022 8:21 PM ACCIDENT REPORT CLERK Sexual Orientation Straight 11/29/2022 8: 21 PM ACCIDENT REPORT CLERK documented as of this encounter Medications at Time of Discharge Medication Sig Dispensed Refills Start Date End Date acetaminophen (TYLENOL) 500 mg tablet Take 2 tablets by mouth as needed for pain or fever. 0 05/27/2022 aspirin 81 mg chewable tablet Chew 81 mg daily. 0 05/27/2022 atorvastatin (LIPITOR) 20 mg tablet Take 20 mg by mouth at bedtime. 0 10/05/2022 cholecalciferol (VITAMIN D3) 25 mcg (1,000 Unit) capsule Take 1,000 Units by mouth daily. 0 09/16/2022 docusate sodium (COLACE) 100 mg capsule Take 100 mg by mouth as needed. 0 05/27/2022 levothyroxine (SYNTHROID, LEVOTHROID) 25 mcg tablet Take 25 mcg by mouth daily. 0 10/15/2022 metoprolol succinate (TOPROL-XL) 25 mg 24 hr tablet Take 25 mg by mouth daily. 0 09/10/2022 mirtazapine (REMERON) 15 mg tablet Take 15 mg by mouth at bedtime. 0 10/05/2022 multivitamin tablet Take 1 tablet by mouth daily. 0 09/16/2022 lidocaine (LIDODERM) 5 % daily. 0 11/04/2022 03/21/2023 prednisoLONE acetate (PRED FORTE) 1 % ophthalmic suspension 1 DROP TO OPERATIVE EYE 4 TIMES A DAY STARTING AFTER SURGERY 0 12/17/2022 quinapriL (ACCUPRIL) 10 mg tablet Take 10 mg by mouth daily. 0 10/30/2022 03/21/2023 documented as of this encounter Plan of Treatment Not on file documented as of this encounter Procedures Procedure Name Priority Date/Time Associated Diagnosis Comments DX ENTIRE SPINE SCOLIOSIS 2-3 VIEWS RAD - Routine (most inpatients and all outpatients) 12/30/2022 7:17 AM CDT Scoliosis Kyphosis documented in this encounter Results * DX Entire Spine Scoliosis 2-3 Views (12/30/2022 7:17 AM CDT) Anatomical Region Laterality Modality Spine, Musculoskeletal RST L OS, Neuroradiology ARZ LOS, Muskuloskeletal FLA LOS N/A Digital Radiography 12/30/2022 7:40 AM CDT Impressions 12/30/2022 7:43 AM CDT Full-length standing views of the entire spine obtained for scoliosis evaluation. Thoracolumbar scoliosis. Advanced degenerative arthritis throughout the entire spine. Compression fracture T9, T10 and T12 vertebral bodies with associated kyphosis. Posterior subluxation L1-L3 vertebral bodies. Osteopenia. 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 Sternotomy. Arterial calcifications. Narrative 12/30/2022 7:43 AM CDT EXAM: ??DX ENTIRE SPINE SCOLIOSIS 2-3 VIEWS Procedure Note Jordyn Woo M.D. - 12/30/2022 EXAM: DX ENTIRE SPINE SCOLIOSIS 2-3 VIEWS IMPRESSION: Full-length standing views of the entire spine obtained for scoliosisevaluation. Thoracolumbar scoliosis. Advanced degenerative arthritis throughout theentire spine. Compression fracture T9, T10 and T12 vertebral bodies with associated kyphosis.Posterior subluxation L1-L3 vertebral bodies. Osteopenia. Advanced degenerative arthritis right hipand left glenohumeral joint. Sternotomy. Arterial calcifications. Jose Dixon APRN, C.N.P. IMG DIAGNOSTI C IMAGING PROCEDURES documented in this encounter Visit Diagnoses Diagnosis Scoliosis Kyphosis documented in this encounter Care Teams Traveling Freight Agent Relationship Specialty Start Date End Date Elsewhere, Pcp PCP - General Internal Medicine 12/30/22 documented as of this encounter
--- OUTSIDE RECORDS SUMMARY | 2023-10-20 10:53 | XMS_ITS | Encounter Summary ---
Author Name Unknown Organization [facility] Address [address] [place] [address] Care Team Providers Care Inspector Government Property Name Role Phone Elsewhere, Pcp Primary Care Provider Unavailabl e Encounter Details Date Type Department Care Team (Latest Contact Info) Description 03/21/2023 4:00 PM CDT Clinical Communication Virtual Review in [place], [place] [address] [place] [address] Social History Tobacco Use Types Packs/Day Years [...] often do you attend chur ch or rastafari services? More than 4 times per year 12/26/2022 Do you belong to any clubs o r organizations such as yazidism groups, unions, fraternal or athletic groups, or [...] Not hard at all 12/26/2022 [facility] - Occupational [...] place to sleep or slept in a skilled nursing (including now)? No 12/26/2022 Nutrition Answer Date [...] Sex Assigned at Female 11/29/2022 8:21 PM HEALTH AIDE Gender Identity Female 11/29/2022 8:21 PM HEALTH AIDE Sexual Orientation Straight 11/29/2022 8: 21 PM HEALTH AIDE documented as of this encounter Plan of Treatment Not on file documented as of this encounter Visit Diagnoses Not on filedocumented in this encounter Care Teams Inspector Government Property Relationship Specialty Start Date End Date Elsewhere, Pcp PCP - General Internal Medicine 12/30/22 documented as of this encounter
--- OUTSIDE RECORDS SUMMARY | 2023-10-20 10:53 | XMS_ITS | Encounter Summary ---
Author Name Unknown Organization [facility] Address [address] [place] [address] Care Team Providers Care Security System Engineer Name Role Phone Elsewhere, Pcp Primary Care Provider Unavailabl e Reason for Visit * Outpatient (Routine) - Closed Specialty Diagnoses / Procedures Referred By Oscar t Referred To Contact Pain Medicine Emely Myers P.A.-C., M.S. [address] [place] [phone] [facility] Referral ID Status Reason Start Date Expiration Date Visits Re quested Visits Authorized [id number] Closed 02/01/2023 01/31/2026 1 1 Encounter Details Date Type Department Care Team (Late st Contact Info) Description 03/28/2023 1:00 PM CDT Virtual Visit Division of Pain Medicine in [place], [place] [address] [place] [phone] Emely Myers P.A.-C., M.S. [address] [place] [address] [phone] Pain Back Thoracic (Primary Dx) Social History Tobacco Use Types Packs/Day Years [...] 12/26/2022 How often do you attend chur or latter-day services? More than 4 times per year 12/26/2022 Do you belong to any clubs o r organizations such as protestant groups, unions, fraternal or athletic groups, or [...] and heating? Not hard at all 12/26/2022 [facility] [place] of Occupat ional Health - Occupational Stress [...] money to buy more. Never true 12/27/19 Within the past 12 months, t he [...] place to sleep or slept in a fpc (including now)? No 12/26/2022 Nutrition Answer Date [...] Sex Assigned at Female 11/29/2022 8:21 PM WOOD MACHINE CARVER Gender Identity Female 11/29/2022 8:21 PM WOOD MACHINE CARVER Sexual Orientation Straight 11/29/2022 8: 21 PM WOOD MACHINE CARVER documented as of this encounter Progress Notes * StichaEmely P.A.-C., M.S. - 03/28/2023 1:00 PM CDT VIRTUAL VISIT - TELEPHONE SUBJECTIVE CHIEF COMPLAINT / REASON FOR VISIT Virtual visit to address: No diagnosis found. HISTORY OF PRESENT ILLNESS Ingrid Granger is a 82 y.o. female with a history of chronic low back and flank pain. Last office visit took place 12/30/2022. This virtual visit is conducted via telephone to the patient's home to follow-up on recent thoracic MRI. Her son is on the phone during our visit today. The pain is localized to left flank and left hip. This pain radiates along the left iliac crest region. She denies any changes in his pain since our last visit. She has trialed ultrasound-guided trigger point injections to the left iliac crest region on 01/12/2023 did not provide relief in pain. I reviewed her MRI with her today. I was unable to access the images during our phone visit due to technical problems. I was able to review the radiologist's interpretation of the imaging which is significant for chronic compression fractures of T9-T12 with exaggerated kyphosis centered. At T11-12 I discussed the multiple degenerative changes most pronounced at T10-11 resulting in narrowing of the central canal. There is no noted significant foraminal narrowing. She does have a local primary care provider as she has established with. She states that she has had a bone scan last year. OBJECTIVE History was reviewed including allergies, current medications, and problem list. ASSESSMENT / PLAN Ingrid Granger is a 82 y.o. female with a history of chronic low back and flank pain. Findings on evaluation are consistent with chronic flank and hip pain. I reviewed her thoracic MRI interpretation today. I discussed possible option of considering ultrasound-guided superior cluneal nerve block versus thoracic epidural steroid injection. The option of peripheral nerve stimulation has beendiscussed in the past and may be a future consideration if we are able to target a generator for her pain. FOLLOW-UP Total time: 30 minutes. PATIENT EDUCATION Ready to learn, no apparent learning barriers were identified; learning preferences included listening. Explained diagnosis and treatment plan; patient expressed understanding of the content. documented in this encounter Plan of Treatment Not on file documented as of this encounter Visit Diagnoses Diagnosis Pain Back Thoracic- Primary documented in this encounter Care Teams Security System Engineer Relationship Specialty Start Date End Date Elsewhere, Pcp PCP - General Internal Medicine 12/30/22 documented as of this encounter
--- OUTSIDE RECORDS SUMMARY | 2023-10-20 10:53 | XMS_ITS | Encounter Summary ---
Author Name Unknown Organization [facility] Address [address] [place] [id number] Care Team Providers Care Editor Publications Name Role Phone Elsewhere, Pcp Primary Care Provider Unavailabl e Reason for Visit * Outpatient (Routine) - Closed Specialty Diagnoses / Procedures Referred By Contjude t Referred To Contact Diagnoses Scoliosis Pain Myofascial Procedures PM Trigger point injection Emely Myers P.A.-C., M.S. [address] [place] [phone] [facility] Referral ID Status Reason Start Date Expiration Date Visits Re quested Visits Authorized [id number] Closed 12/30/2022 12/30/2023 1 1 Encounter Details Date Type Department Care Team (Late st Contact Info) Description 01/12/2023 8:30 AM CDT Procedure visit Division of Pain Medicine in [place], [place] [address] [place] [phone] Maribel Dover M.D. [address] [place] [phone] Scoliosis; Pain Myofascial Social History Tobacco Use Types Packs/Day Years [...] How often do you attend chur or faith services? More than 4 times per year 12/26/2022 Do you belong to any clubs o r organizations such as pentecostalism groups, unions, fraternal or athletic groups, or [...] and heating? Not hard at all 12/26/2022 [facility] [place] of Occupat ional Health - Occupational Stress [...] place to sleep or slept in a prison (including now)? No 12/26/2022 Nutrition Answer Date [...] Sex Assigned at Female 11/29/2022 8:21 PM TRANSPORTATION BROKER Gender Identity Female 11/29/2022 8:21 PM TRANSPORTATION BROKER Sexual Orientation Straight 11/29/2022 8: 21 PM TRANSPORTATION BROKER documented as of this encounter Procedure Notes * Maribel Dover M.D. - 01/12/2023 8:30 AM CDTAssociated Order(s): PM Trigger point injection Pre-Procedure Diagnose(s): Scoliosis; Pain Myofascial Post-Procedure Diagnose(s): Scoliosis; Pain Myofascial PM Trigger point injection (other)Performed by: Maribel Dover M.D. Authorized by: Emely Myers P.A.-C., M.S. Care team members present 1. Brice Nazario R.N. PROCEDURE SUMMARY Indication: Scoliosis, Myofascial Pain Pre procedure pain score: 0/10 Post procedure pain score: 0/10 Soft tissue site: other Other site: Left Iliac Crest Other position: side-laying with affected side up Preparation: Patient was prepped and draped in usual sterile fashion Needle size: 25 G Needle length: 2 in Number of muscles injected: 1 or 2 muscles IMAGING Ultrasound image guidance used to localize target, identify at risk structures, and dynamically used to direct therapy to the target. Image(s) acquired and saved. Ultrasound probe (MHz): linear mid-frequency Needle visualization: in-plane INJECTED MEDICATIONS The injected medication(s) listed was divided equally between the identified injection location(s) Total volume of injectate (mL): 6 Total steroid in injectate (mg): 40 5 mL BUPivacaine PF 0.75 % (7.5 [...] Following the injection, the needle was withdrawn. The patient tolerated the procedure well and there were no apparent complications. After an appropriate amount of observation, the patient was dismissed from the clinic in good condition under their own power. Complications: no apparent complications CONSENT Consent obtained: written (Risks, benefits and [...] were utilized as applicable for the procedure. Skin preparation: Chlorhexidine SEDATION / ANESTHESIA Anesthesia method: local infiltration Local infiltrate type: lidocaine ATTESTATION STATEMENT The teaching physician rule is not applicable. OPERATIVE NOTE INFORMATION Specimens: 0 Drains: 0 Estimated blood loss: 0 Implants: 0 documented in this encounter Plan of Treatment Not on file documented as of this encounter Procedures Procedure Name Priority Date/Time Associated Diagnosis Comments PROCEDURE PLACEHOLDER Routine 01/12/2023 8:30 AM CDT Scoliosis Pain Myofascial MO US GUIDE PLC NDL Routine 01/12/2023 8 :30 AM CDT Scoliosis Pain Myofascial MO INJ TRIGGER PNT<=2 MUS Routine 01/12/2023 8:30 AM CDT Scoliosis Pain Myofascial documented in this encounter Results * MO INJ TRIGGER PNT<=2 MUS, MO US GUIDE PLC NDL, PROCEDURE PLACEHOLDER (01/12/2023 8:30 AM CDT) Narrative MMODAL - 01/12/2023 8:30 AM CDT Maribel Dover M.D. ? 01/12/2023 11:45 AM PM Trigger point injection (other)Performed by: Maribel Dover M.D. Authorized by: Emely Myers P.A.-C., M.S. Care team members present 1. Aravind, Brice R, R.N. PROCEDURE SUMMARY ?? Indication: Scoliosis, Myofascial Pain [...] loss: 0 Implants: 0 Emely Myers P.A.-C. MVinayakSVinayak PROCEDURE/ MINOR SURGICAL ORDERABLES MMODAL NA documented in this encounter Visit Diagnoses Diagnosis Scoliosis Pain Myofascial documented in this encounter Administered Medications Inactive Administered Medications - up to 3 most recent administrations Medication Order MAR Action Action Date Dose Rate Site BUPivacaine PF 0.75 % (7.5 mg/mL) injection 5 mL (MARCAINE) 5 mL, injection, One-Time Injection, Starting on Angie 01/12/23 at 0856, For 1 dose Given 01/12/2023 8:56 AM CDT 5 mL triamcinolone acetonide injection 40 mg (KENALOG-40) 40 mg, injection, One-Time Injection, Starting on Angie 01/12/23 at 0856, For 1 dose Given 01/12/2023 8:56 AM CDT 40 mg documented in this encounter Care Teams Editor Publications Relationship Specialty Start Date End Date Elsewhere, Pcp PCP - General Internal Medicine 12/30/22 documented as of this encounter
--- OUTSIDE RECORDS SUMMARY | 2023-10-20 10:53 | XMS_ITS ---
Author Name Unknown Organization [facility] Address [address] [place] [address] Care Team Providers Care Training Designer Name Role Phone Unavailable Unavailable Unavailable Surgery Details Not on file Complications Check Surgery Details section. Procedure Estimated Blood Loss Check Surgery Details section. Procedure Findings Check Surgery Details section. Procedure Specimens Taken Check Surgery Details section.
--- OUTSIDE RECORDS SUMMARY | 2023-10-20 10:53 | XMS_ITS | Referral Summary ---
Author Name Unknown Organization [facility] Address [address] [place] [address] Care Team Providers Care Card Hand Name Role Phone Elsewhere, Pcp Primary Care Provider Unavailabl e Source Comments Patient records contain information from all sites at [facility]. For routine questions regarding patient records, call [phone] during business hours, M-F 8:00 AM - 5:00 PM Central Time. Record requests for emergency care only can be directed to [phone] at any time.[facility] Allergies Active Allergy Reactions Criticality Noted Date Comments Penicillins Rash Low 03/25/2022 Sulfa (Sulfonamide Antibiotics) Rash Low 03/03 Medications Medication Sig Dispensed Refills Start Date End Date Status atorvastatin (LIPITOR) 20 mg tablet Take 20 mg by mouth at bedtime. 0 10/05/2022 Active levothyroxine (SYNTHROID, LEVOTHROID) 25 mcg tablet Take 25 mcg by mouth daily. 0 10/15/2022 Active metoprolol succinate (TOPROL-XL) 25 mg 24 hr tablet Take 25 mg by mouth daily. 0 09/10/2022 Active mirtazapine (REMERON) 15 mg tablet Take 15 mg by mouth at bedtime. 0 10/05/2022 Active multivitamin tablet Take 1 tablet by mouth daily. 0 09/16/2022 Active docusate sodium (COLACE) 100 mg capsule Take 100 mg by mouth as needed. 0 05/27/2022 Active cholecalciferol (VITAMIN D3) 25 mcg (1,000 Unit) capsule Take 1,000 Units by mouth daily. 0 09/16/2022 Active acetaminophen (TYLENOL) 500 mg tablet Take 2 tablets by mouth as needed for pain or fever. 0 05/27/2022 Active aspirin 81 mg chewable tablet Chew 81 mg daily. 0 05/27/2022 Ac tive lisinopriL (PRINIVIL,ZESTRIL) 10 mg tablet Take 10 mg by mouth daily. 0 01/27/2023 Active calcium carbonate (CALCIUM 500 ORAL) Take 1,200 mg by mouth daily. 0 Active oxyCODONE (ROXICODONE) 5 mg immediate release tabletIndications:Chr onic Pain/Nonacute Pain Take 0.5 tablets (2.5 mg total) by mouth daily as needed for pain Indication: Chronic Pain/Nonacute Pain. 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 More than 4 times per year 12/26/2022 Do you belong to any clubs o r organizations such as religious groups, unions, fraternal or athletic groups, or [...] and heating? Not hard at all 12/26/2022 [facility] [place] of Occupat ional Health - Occupational Stress [...] place to sleep or slept in a nursing home (including now)? No 12/26/2022 Nutrition Answer [...] Sex Assigned at Female 11/29/2022 8:21 PM VINEYARD TENDER Gender Identity Female 11/29/2022 8:21 PM VINEYARD TENDER Sexual Orientation Straight 11/29/2022 8: 21 PM VINEYARD TENDER Last Filed Vital Signs Vital Sign Reading Time Taken Comments Blood Pressure 137/54 12/30/2022 9:06 AM CDT Pulse 52 12/30/2022 9:06 AM CDT Temperature - - Respiratory Rate - - Oxygen Saturation - - Inhaled Oxygen Concentration - - Weight 45.5 kg (100 lb 3.2 oz) 12/01/2022 3:23 P M VINEYARD TENDER Height 151.9 cm (4' 11.8) 12/01/2022 3:23 PM CS T Body Mass Index 19.7 12/01/2022 3:23 PM VINEYARD TENDER Plan of Treatment Not on file Care Teams Card Hand Relationship Specialty Start Date End Date Elsewhere, Pcp PCP - General Internal Medicine 12/30/22
--- OUTSIDE RECORDS SUMMARY | 2023-10-20 10:53 | XMS_ITS | Encounter Summary ---
Author Name Unknown Organization [facility] Address [address] [place] [address] Care Team Providers Care Look Out Tower Fire Watcher Name Role Phone Elsewhere, Pcp Primary Care Provider Unavailabl e Reason for Visit * Reason Onset Date Comments Pre-visit Intake 05/11/2023 Encounter Details Date Type Department Care Team (Latest Contact Info) Description 05/11/2023 1:30 PM CDT Clinical Communication Virtual Review in [place], [place] [address] [place] [address] Pre-visit Intake Social History Tobacco Use Types Packs/Day Years [...] often do you attend chur ch or alevism services? More than 4 times per year 12/26/2022 Do you belong to any clubs o r organizations such as hindu groups, unions, fraternal or athletic groups, or [...] and heating? Not hard at all 12/26/2022 [facility] [place] of Occupat ional Health - Occupational Stress [...] place to sleep or slept in a group home (including now)? No 12/26/2022 Nutrition Answer [...] Sex Assigned at Female 11/29/2022 8:21 PM BLOCKER AUTOMATIC Gender Identity Female 11/29/2022 8:21 PM BLOCKER AUTOMATIC Sexual Orientation Straight 11/29/2022 8: 21 PM BLOCKER AUTOMATIC documented as of this encounter Plan of Treatment Not on file documented as of this encounter Visit Diagnoses Not on filedocumented in this encounter Care Teams Look Out Tower Fire Watcher Relationship Specialty Start Date End Date Elsewhere, Pcp PCP - General Internal Medicine 12/30/22 documented as of this encounter
--- OUTSIDE RECORDS SUMMARY | 2023-10-20 10:53 | XMS_ITS | Encounter Summary ---
Author Name Unknown Organization [facility] Address [address] [place] [address] Care Team Providers Care Cash Register Repairer Name Role Phone Unavailable Primary Care Provider Unavailabl e Reason for Visit * Reason Onset Date Comments Pre-visit Intake 12/28/2022 Encounter Details Date Type Department Care Team (Latest Contact Info) Description 12/28/2022 10:30 AM CDT Clinical Communication Virtual Review in [place], [place] 200 [place] [address] Pre-visit Intake Social History Tobacco Use Types [...] often do you attend chur ch or mosque services? More than 4 times per year 12/26/2022 Do you belong to any clubs o r organizations such as confucianism groups, unions, fraternal or athletic groups, or [...] and heating? Not hard at all 12/26/2022 [facility] [place] of Occupat ional Health - Occupational Stress [...] Sex Assigned at Female 11/29/2022 8:21 PM COMMUNITY DEVELOPMENT AIDE Gender Identity Female 11/29/2022 8:21 PM COMMUNITY DEVELOPMENT AIDE Sexual Orientation Straight 11/29/2022 8: 21 PM COMMUNITY DEVELOPMENT AIDE documented as of this encounter Plan of Treatment Not on file documented as of this encounter Visit Diagnoses Not on filedocumented in this encounter
--- OUTSIDE RECORDS SUMMARY | 2023-10-20 10:53 | XMS_ITS | Encounter Summary ---
Author Name Unknown Organization [facility] Address [address] [place] [address] Care Team Providers Care Type Bar And Segment Assembler Name Role Phone Elsewhere, Pcp Primary Care Provider Unavailabl e Reason for Referral * MRI/CAT/PET Scan (Routine) - Closed Specialty Diagnoses / Procedures Referred By Contac t Referred To Contact Radiology Diagnoses Pain Back Thoracic Procedures MR Thoracic Spine without IV Contrast Emely Myers P.A.-C., M.S. [address] [place] [phone] [facility] Referral ID Status Reason Start Date Expiration Date Visits Re quested Visits Authorized [id number] Closed 02/01/2023 02/01/2024 1 1 Reason for Visit * MRI/CAT/PET Scan (Routine) - Closed Specialty Diagnoses / Procedures Referred By Contac t Referred To Contact Radiology Diagnoses Pain Back Thoracic Procedures MR Thoracic Spine without IV Contrast Emely Myers P.A.-C., M.S. 200 [place] [phone] [facility] Referral ID Status Reason Start Date Expiration Date Visits Re quested Visits Authorized [id number] Closed 02/01/2023 02/01/2024 1 1 Encounter Details Date Type Department Care Team (Latest Contact Info) Description 03/27/2023 1:51 PM CDT - 03/27/2023 11:59 PM CDT Hospital Encounter Department of Radiology, [facility], in [place], [place] 200 [place] [phone] Emely Myers P.A.-C., M.S. 200 [place] [phone] Pain Back Thoracic Discharge Disposition: Home or Self Care Social [...] often do you attend chur ch or christianity services? More than 4 times per year 12/26/2022 Do you belong to any clubs o r organizations such as judaism groups, unions, fraternal or athletic groups, or [...] and heating? Not hard at all 12/26/2022 [facility] of Occupat ional Health - Occupational Stress [...] place to sleep or slept in a long term (including now)? No 12/26/2022 Nutrition Answer Date [...] Sex Assigned at Female 11/29/2022 8:21 PM SPINNING MULE TENDER Gender Identity Female 11/29/2022 8:21 PM SPINNING MULE TENDER Sexual Orientation Straight 11/29/2022 8: 21 PM SPINNING MULE TENDER documented as of this encounter Medications at [...] 25 mcg by mouth daily. 0 10/15/2022 lisinopriL (PRINIVIL,ZESTRIL) 10 mg tablet Take 10 mg by mouth daily. 0 01/27/2023 metoprolol succinate (TOPROL-XL) 25 mg 24 hr tablet Take 25 mg by mouth daily. 0 09/10/2022 mirtazapine (REMERON) 15 mg tablet Take 15 mg by mouth at bedtime. 0 10/05/2022 multivitamin tablet Take 1 tablet by mouth daily. 0 09/16/2022 documented as of this encounter Plan of Treatment Not on file documented as of this encounter Procedures Procedure Name Priority Date/Time Associated Diagnosis Comments MR THORACIC SPINE WITHOUT IV CONTRAST RAD - Routine (most inpatients and all outpatients) 03/27/2023 3:18 PM CDT Pain Back Thoracic documented in this encounter Results * MR Thoracic Spine without IV Contrast (03/27/2023 3:18 PM CDT) Anatomical Region Laterality Modality Thoracic Spine, Neuroradiolo gy RST LOS, Neuroradiology ARZ LOS, Neuroradiology FLA LOS N/A Magnetic Resonance 03/28/2023 12:0 4 PM CDT Impressions 03/28/2023 12:17 PM CDT Multilevel nonacute appearing vertebral body compression deformities. Exaggerated thoracic kyphosis. Multilevel degenerative changes. ?? Narrative 03/28/2023 12:17 PM CDT EXAM: MR THORACIC SPINE WITHOUT IV CONTRAST COMPARISON: Radiographs 05/30/2022 FINDINGS: Nonacute appearing compression deformities T9, T10, T11 and T12 vertebral bodies. Resultant exaggerated kyphosis centered at T11-12. Multilevel degenerative changes. These include bulge/osteophytes which are most pronounced T10-11 with mild resultant ventral cord indentation. Facet/ligamentum flavum hypertrophy also result in posterolateral indentation of thecal sac at T10-11. No abnormal cord signal. Disc space narrowing and disc desiccation, most pronounced T10-11 and 11-12. ??Multilevel endplate Schmorl's nodes, most pronounced superior endplate T12. Visualized upper lumbar degenerative changes including disc space narrowing, disc desiccation, bulge/osteophytes and mild retrolisthesis L1-2 and L2-3. Multilevel nerve root sleeve cysts incidentally noted; most pronounced bilateral T7. Procedure Note Harsha Menchaca M.D., M.B.A. - 03/28/2023 EXAM: MR THORACIC SPINE WITHOUT IV CONTRAST COMPARISON: Radiographs 05/30/2022 FINDINGS: Nonacute appearing compression deformities T9, T10, T11 and [id number] bodies. Resultant exaggerated kyphosis centered at T11-12. Multilevel degenerativechanges. These include bulge/osteophytes which are most pronounced T10-11 with mild resultantventral cord indentation. Facet/ligamentum flavum hypertrophy also result in posterolateralindentation of thecal sac at T10-11. No abnormal cord signal. Disc space narrowing and discdesiccation, most pronounced T10-11 and 11-12. Multilevel endplate Schmorl's nodes, most pronounced superiorendplate T12. Visualized upper lumbar degenerative changes including disc space narrowing, discdesiccation, bulge/osteophytes and mild retrolisthesis L1-2 and L2-3. Multilevel nerveroot sleeve cysts incidentally noted; most pronounced bilateral T7. IMPRESSION: Multilevel nonacute appearing vertebral body compression deformities.Exaggerated thoracic kyphosis. Multilevel degenerative changes. Emely Myers P.A.-C., M.S. IMG MRI [place] OCEDURES documented in this encounter Visit Diagnoses Diagnosis Pain Back Thoracic documented in this encounter Care Teams Type Bar And Segment Assembler Relationship Specialty Start Date End Date Elsewhere, Pcp PCP - General Internal Medicine 12/30/22 documented as of this encounter
--- OUTSIDE RECORDS SUMMARY | 2023-10-20 10:53 | XMS_ITS | Encounter Summary ---
Author Name Unknown Organization [facility] Address [address] [place] [id number] Care Team Providers Care Towerman Name Role Phone Elsewhere, Pcp Primary Care Provider Unavailabl e Reason for Referral * Outpatient (Routine) - Authorized Specialty Diagnoses / Procedures Referred By Contac t Referred To Contact Pain Medicine Emely Myers P.A.-C., M.SVinayak [address] [place] [phone] [facility] Referral ID Status Reason Start Date Expiration Date V isits Requested Visits Authorized [id number] Authorized 05/16/2023 05/15/2026 1 1 Scheduling Instructions [facility] Reason for Visit * Appointment Request (Routine) - Closed Specialty Diagnoses / Procedures Referred By Contac t Referred To Contact Pain Medicine Referral ID Status Reason Start Date Expiration Date Visits Re quested Visits Authorized [id number] Closed 04/27/2023 04/26/2024 1 1 Encounter Details Date Type Department Care Team (Late st Contact Info) Description 05/16/2023 8:00 AM CDT Virtual Visit Division of Pain Medicine in [place], [place] [address] [place] [phone] Emely Myers P.A.-C., M.S. [address] [place] [phone] Pain Back Thoracic (Primary Dx) Social History [...] often do you attend chur ch or gnosticist services? More than 4 times per year 12/26/2022 Do you belong to any clubs o r organizations such as latter day groups, unions, fraternal or athletic groups, or [...] and heating? Not hard at all 12/26/2022 [facility] Occupat ional Health - Occupational Stress [...] place to sleep or slept in a senior living (including now)? No 12/26/2022 Nutrition Answer Date [...] Sex Assigned at Female 11/29/2022 8:21 PM AUTHORIZATION REP Gender Identity Female 11/29/2022 8:21 PM AUTHORIZATION REP Sexual Orientation Straight 11/29/2022 8: 21 PM AUTHORIZATION REP documented as of this encounter Progress Notes * Emely Myers P.A.-C., M.S. - 05/16/2023 8:00 AM CDT VIRTUAL VISIT - TELEPHONE SUBJECTIVE CHIEF COMPLAINT / REASON FOR VISIT Virtual visit to address: 1. Pain Back Thoracic HISTORY OF PRESENT ILLNESS Ingrid Granger is a 82 y.o. female with a history of chronic low back and flank pain. Last office visit took place 03/28/2023. I had a phone visit with her on 03/28/2023 to review her thoracic MRI. This virtual visit is conducted via telephone to the patient's home. The pain is localized to left flank and hip region. She denies any new or changing symptoms in thispain today. Pain continues to be worse throughout the day and into the evening. Pain is improved with lying flat. She denies any numbness or tingling in the painful region. She has previously undergone ultrasound-guided trigger point injections to the left iliac crest region without significant improvement in pain. She has had a thoracic MRI performed on 03/27/2023 whichwas significant for chronic compression fractures of T9-T12 with exaggerated kyphosis centered at T11-12 with multiple degenerative changes most pronounced at T10-11 resulting in narrowing of the central canal. Following our last visit she did undergo a bone density test from her primary care provider which was significant for osteopenia. OBJECTIVE History was reviewed including allergies, current medications, and problem list. ASSESSMENT / PLAN Encounter Diagnosis Name Primary? Pain Back Thoracic Yes Ingrid Granger is a 82 y.o. female with a history of chronic low back and flank pain. Findings on evaluation are consistent with chronic thoracic pain. Today we discussed possible treatments including low-dose opioid therapy or interventions. I am hesitant to consider any neuropathic agents including gabapentin, Lyrica or Cymbalta due to side effects. We have again discussed possible interventions including cluneal nerve block versus thoracic epidural steroid injection. We have discussedthe option of low-dose opioid therapy. She has not used opioids in the past to her recollection. Her [id number]-itt notes possible Tylenol with codeine use. MEDICAL DECISION MAKING We will initiate low dose opioid therapy.We will start with 2.5 mg of oxycodone daily prn. May consider twice a day dosing in the future. PDMP with reviewed with no concerns. Initial prescription wassent to her preferred pharmacy. 2. May consider ultrasound-guided left superior cluneal nerve block versus thoracic epidural steroid injection as possible future interventions. FOLLOW-UP Return appt to initiate contract and urine screen. Total time: 30 minutes. PATIENT EDUCATION Ready to learn, no apparent learning barriers were identified; learning preferences included listening. Explained diagnosis and treatment plan; patient expressed understanding of the content. documented in this encounter Plan of Treatment Scheduled Orders Name Type Priority Associated Diagnoses Orde r Schedule Controlled Substance Monitoring Panel, Urine Lab Routine Pain Back Thoracic Expected: 05/16/2023 (Approximate), Expires: 08/16/2024 Scheduled Referrals Name Type Priority Associated Diagnoses Orde r Schedule Pain Medicine Chronic Opioid Visit Outpatient Referral Routine Expected: 05/16/2023 (Approximate), Expires: 08/16/2024 documented as of this encounter Visit Diagnoses Diagnosis Pain Back Thoracic- Primary documented in this encounter Care Teams Towerman Relationship Specialty Start Date End Date Elsewhere, Pcp PCP - General Internal Medicine 12/30/22 documented as of this encounter
--- OUTSIDE RECORDS SUMMARY | 2023-10-20 10:53 | XMS_ITS | Clinical Summary ---
Author Name Unknown Organization [facility] Address [address] [place] [address] Care Team Providers Care Dispatcher Bus And Trolley Name Role Phone Elsewhere, Pcp Primary Care Provider Unavailabl e Source Comments Patient records contain information from all sites at [facility]. For routine questions regarding patient records, call [phone] during business hours, M-F 8:00 AM - 5:00 PM Central Time. Record requests for emergency care only can be directed to [phone] at any time.[facility] Allergies Active Allergy Reactions Criticality Noted Date [...] Presence Of Aortocoronary Bypass Graft Overview: In 1982 Family History Medical History Relation Name Comments Diabetes Maternal Grandfather Tad Lung cancer Maternal Grandfather Tad Breast cancer Maternal Grandmother Morena Ovarian cancer Mother Noy Tuberculosis Paternal Grandmother Morena Breast cancer Sister Li Relation Name Status Comments Maternal Grandfather Tad Maternal Grandmother Morena Mother Noy Paternal Grandmother Morena Sister Li Social History Tobacco Use Types Packs/Day Years [...] often do you attend chur ch or taoist services? More than 4 times per year 12/26/2022 Do you belong to any clubs o r organizations such as baptist groups, unions, fraternal or athletic groups, or [...] and heating? Not hard at all 12/26/2022 [facility] of Occupat ional Health - [...] Sex Assigned at Female 11/29/2022 8:21 PM MACHINE BENDER Gender Identity Female 11/29/2022 8:21 PM MACHINE BENDER Sexual Orientation Straight 11/29/2022 8: 21 PM MACHINE BENDER Last Filed Vital Signs Vital Sign Reading Time Taken Comments Blood Pressure 137/54 12/30/2022 9:06 AM CDT Pulse 52 12/30/2022 9:06 AM CDT Temperature - - Respiratory Rate - - Oxygen Saturation - - Inhaled Oxygen Concentration - - Weight 45.5 kg (100 lb 3.2 oz) 12/01/2022 3:23 P M MACHINE BENDER Height 151.9 cm (4' 11.8) 12/01/2022 3:23 PM CS T Body Mass Index 19.7 12/01/2022 3:23 PM MACHINE BENDER Plan of Treatment Health Maintenance Due Date Last Done Comments Sodium Level 05/27/2023 05/27/2022 Thyroid Stimulating Hormone (TSH) test for thyroid function 05/27/2023 05/27/2022 Creatinine Level (Kidney Fun ction Test) 07/13/2023 07/13/2022, 05/27/2022 Potassium Level 09/16/2023 09/16/2022, 05/27/2022 Depression Screening (Annual PHQ-2) 10/02/2023 Fall Risk Screen (Annual) 10/02/2023 Office Visit for Blood Press ure Check / Re-check 12/31/2023 12/30/2022 DTaP,Tdap,and Td Vaccines (3 - Td or Tdap) 12/31/2032 12/31/2022, 07/02/2013 Pneumococcal vaccine (65+ years) Completed 11/28/19 15, 05/17/2011 Zoster Vaccines Completed 02/19/2022, 12/07/2021 Influenza Vaccine Completed 06/28/2023, , 07/02/2021, Additional history exists COVID-19 Vaccine Completed 07/13/2023, 01/2022, 01/20/2022, Additional history exists Care Teams Dispatcher Bus And Trolley Relationship Specialty Start Date End Date Elsewhere, Pcp PCP - General Internal Medicine 12/30/22
--- OUTSIDE RECORDS SUMMARY | 2023-10-20 10:54 | XMS_ITS | Encounter Summary ---
Author Name Unknown Organization [facility] Address [address] [place] [address] Care Team Providers Care Pipe Coverer Name Role Phone Unavailable Primary Care Provider Unavailabl e Encounter Details Date Type Department Care Team (Late st Contact Info) Description 11/16/2022 Clinical Communication Department of Orthopedic Surgery in [place], [place] [address] [place] [phone] Oswald Pepper M.D. [address] [place] [phone] Social History Tobacco Use Types Packs/Day Years Used Date Smoking Tobacco: Never Assessed Nutrition Answer Date Recorded Nutrition: EVOO Fat Source Unknown 11/08 Nutrition: Servings of Fruits/Vegetables per Day Not on file 11/08/2022 Dental Answer Date Recorded Dental: Regular Dentist Unknown 11/08/19 23 Sex and Gender Information Value Date Recorded Sex Assigned at Female 11/29/2022 8:21 PM BUSINESS PROCESS ANALYST Gender Identity Female 11/29/2022 8:21 PM BUSINESS PROCESS ANALYST Sexual Orientation Straight 11/29/2022 8: 21 PM BUSINESS PROCESS ANALYST documented as of this encounter Plan of Treatment Not on file documented as of this encounter Visit Diagnoses Not on filedocumented in this encounter
--- OUTSIDE RECORDS SUMMARY | 2023-10-20 10:54 | XMS_ITS | Encounter Summary ---
Author Name Unknown Organization [facility] Address [address] [place] [address] Care Team Providers Care Wood Borer Name Role Phone Unavailable Primary Care Provider Unavailabl e Reason for Referral * Outpatient (Routine) - Closed Specialty Diagnoses / Procedures Referred By Contac t Referred To Contact Pain Medicine Diagnoses Scoliosis Kyphosis Jose Dixon APRN, C.N.P. [address] [place] [address] [facility] Referral ID Status Reason Start Date Expiration Date V isits Requested Visits Authorized [id number] Closed Specialty Services Required 12/01/2022 12/01/2023 1 1 Scheduling Instructions Please schedule with Dr. Bowman. ERS' COMPENSATION MEDIATOR * Outpatient (Routine) - Closed Specialty Diagnoses / Procedures Referred By Contac t Referred To Contact Diagnoses Scoliosis Kyphosis Procedures DX Entire Spine Scoliosis 2-3 Views Jose Dixon APRN, C.N.P. [address] [place] [phone] [facility] Referral ID Status Reason Start Date Expiration Date Visits Re quested Visits Authorized [id number] Closed 12/01/2022 12/01/2023 1 1 ERS' COMPENSATION MEDIATOR Reason for Visit * Outpatient (Routine) - Closed Specialty Diagnoses / Procedures Referred By Contac t Referred To Contact Spine Diagnoses Pain Back Thoracic Oswald Pepper M.D. [address] [place] [phone] [facility] Referral ID Status Reason Start Date Expiration Date Visits Re quested Visits Authorized [id number] Closed 11/16/2022 11/16/2023 1 1 Encounter Details Date Type Department Care Team (Latest Contact Info) Description 12/01/2022 2:30 PM WORKERS' COMPENSATION MEDIATOR Comprehensive Visit Department of Spine in [place], [place] [address] [place] [phone] Jose Dixon, PATRICIO, C.N.P. [address] [place] [phone] Scoliosis (Primary Dx); Pain Back Thoracic; Kyphosis; Osteoporosis; Fracture Vertebra Compression Lumbar Closed Subsequent Social History Tobacco Use Types Packs/Day Years Used Date Smoking Tobacco: Former Cigarettes 1 10 1 11/16/1957 - 1968 Smokeless Tobacco: Never Tobacco Cessation:Counseling Given: Not Answered Alcohol Use Standard Drinks/Week Comments Not Currently 0 (1 standard drink = 0.6 oz pur e alcohol) Nutrition Answer Date Recorded Nutrition: EVOO Fat Source Unknown 11/08 Nutrition: Servings of Fruits/Vegetables per Day Not on file 11/08/2022 Dental Answer Date Recorded Dental: Regular Dentist Unknown 11/08/19 Sex and Gender Information Value Date Recorded Sex Assigned at Female 11/29/2022 8:21 PM WORKERS' COMPENSATION MEDIATOR Gender Identity Female 11/29/2022 8:21 PM WORKERS' COMPENSATION MEDIATOR Sexual Orientation Straight 11/29/2022 8: 21 PM WORKERS' COMPENSATION MEDIATOR documented as of this encounter Last Filed Vital Signs Vital Sign Reading Time Taken Comments Blood Pressure - - Pulse - - Temperature - - Respiratory Rate - - Oxygen Saturation - - Inhaled Oxygen Concentration - - Weight 45.5 kg (100 lb 3.2 oz) 12/01/2022 3:23 P M WORKERS' COMPENSATION MEDIATOR Height 151.9 cm (4' 11.8) 12/01/2022 3:23 PM CS T Body Mass Index 19.7 12/01/2022 3:23 PM WORKERS' COMPENSATION MEDIATOR documented in this encounter Consult Notes * Jose Dixon APRN, CVinayakNVinayakP. - 12/01/2022 2:30 PM CST CHIEF COMPLIANT: Left flank pain HISTORY OF PRESENT ILLNESS:Ms. Granger is an 82-year-old patient from [place], [place], who [facility] evaluation of her back and left flank pain at the request of Dr. Pepper in Orthopedic Surgery. The patient reports her pain symptoms started about 3 years ago. She denies any injury or accident contributing to the onset of her pain. She has been pursuing workup with her local providers, and she was found to have a diaphragmatic hernia with sequelae of the pancreas, spleen, and stomach all located into her right lower hemothorax. She has undergone surgical repair of the diaphragmatic hernia in October, but unfortunately this did not help to relieve her left-sided back and flank pain, and she is presenting for additional treatment opinion. At the visit today, she isolates the majority of her pain over her left lateral flank into her leftlower abdomen. She has occasional radiation of pain back towards her thoracolumbar junction. She denies any pain, numbness, or tingling radiating to her legs or feet. She has not noted any weakness. She denies any neck pain or radiation of symptoms to her arms or hands. She is walking short distances without the use of any assistive devices. If she goes for a longer walk, she will use a walker.Her symptoms are typically worse at the end of the day. She reports she is almost symptom-free if she lies on her right side. She has not had any fevers, night sweats, chills, or unexplained weight loss. From a treatment standpoint, she is active with a physical therapy program. She has tried topical medicines including lidocaine patches without relief. She has found some success with a TENS unit. She has not had any spine injections. PAST MEDICAL HISTORY #1 Pain Back Thoracic #2 Scoliosis #3 Kyphosis #4 Osteoporosis #5 Fracture Vertebra Compression Lumbar Closed Subsequent #6 Diaphragmatic Hernia Without Obstruction Or Gangrene #7 Hyperlipidemia #8 Hypertension #9 Presence Of Aortocoronary Bypass Graft PAST SURGICAL HISTORY Past Surgical History: Procedure Laterality Date CORONARY ARTERY BYPASS GRAFT 1996 DILATATION AND CURETTAGE HERNIA REPAIR 2022 TONSILLECTOMY 1942 CURRENT MEDICATIONS Current Outpatient Medications on File Prior to Visit Medication Sig Dispense Refill acetaminophen (TYLENOL) 500 mg tablet Take 500 mg by mouth as needed. aspirin 81 mg chewable tablet Chew 81 mg daily. atorvastatin (LIPITOR) 20 mg tablet Take 20 mg by mouth at bedtime. cholecalciferol (VITAMIN D3) 25 mcg (1,000 Unit) capsule Take 1,000 Units by mouth daily. docusate sodium (COLACE) 100 mg capsule Take 100 mg by mouth as needed. levothyroxine (SYNTHROID, LEVOTHROID) 25 mcg tablet Take 25 mcg by mouth daily. lidocaine (LIDODERM) 5 % daily. metoprolol succinate (TOPROL-XL) 25 mg 24 hr tablet Take 25 mg by mouth daily. mirtazapine (REMERON) 15 mg tablet Take 15 mg by mouth at bedtime. multivitamin tablet Take 1 tablet by mouth daily. quinapriL (ACCUPRIL) 10 mg tablet Take 10 mg by mouth daily. No current facility-administered medications on file prior to visit. 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 She denies use of any nicotine products. PHYSICAL EXAMINATION General: Well-developed, well-nourished individual who does not appear in any acute distress Mental: Appropriate mood and affect. Grossly oriented with coherent speech and thought processing. Spine: Inspection of the posterior thoracic lumbar region did not reveal any redness, swelling or mass. Palpation over her midline of her thoracic and lumbar spine did not reveal any focal tenderness. She has a prominent kyphotic posture with prominent spinous processes over her mid to lower thoracic region but I do not see any evidence of eminent skin tissue breakdown. Palpation over her lateralflank did not reveal any focal tenderness. With lumbar range of motion she has some reduction of her pain with extension. She has near-complete resolution of her pain with lateral bending to the right Gait: She was in a wheelchair at the time of the visit she is able stand and walk without assistance. Strength: With independent testing of the bilateral upper and lower extremity strength is 5/5 throughout. Reflexes: Bilateral upper and lower extremity muscle stretch reflexes are physiologic and symmetric. DIAGNOSTICS Imaging:I reviewed her thoracic spine x-ray dated May 30, 2022, which shows a prominent thoracickyphosis deformity. She has compression deformities of several of her thoracic vertebral bodies. She has a mild thoracolumbar scoliosis curvature. ASSESSMENT / PLAN #1 Low back and left lateral flank pain #2 Kyphoscoliosis #3 Osteoporosis with multiple vertebral compression deformities PLAN: I reviewed the available imaging studies with the patient. I discussed with her I anticipate her lateral flank pain is related to a itd-km-xhpgse deformity. I do not think she is having pain consistent with an acute compression deformity. I also did not think her symptoms are clearly consistent with a thoracic radiculopathy. We discussed several different treatment modalities. Unfortunately, she has not had much success with physical therapy or use of topical ointments. I do not see a good spine surgery option for her pain. I am uncertain if there is a good injection option or block to help with her pain, but I think it would be helpful for her to have a formal visit with our Pain Clinic for their thoughts on the role of any injection procedures that may help with her symptoms. I would also appreciate their input on the possibility of a peripheral nerve stimulator. I reviewed with her signs and symptoms suggestive of progressive neurologic deterioration. We will obtain full-length scoliosis x- rays to better understand her apparent mwy-pg-cehuoe deformity. She will contact me if she has any questions or if she felt I could be of further assistance in her care in the future. ERS' COMPENSATION MEDIATOR documented in this encounter Plan of Treatment Scheduled Referrals Name Type Priority Associated Diagnoses Orde r Schedule Pain Medicine - General consult (clinic) Outpatient Referral Routine Scoliosis Kyphosis Expected: 12/01/2022 (Approximate), Expires: 03/03/2024 documented as of this encounter Results * DX Entire Spine [...] glenohumeral joint. Sternotomy. Arterial calcifications. Jose Dixon EVENTS SOLUTIONS CONSULTANT, C.N.P. IMG DIAGNOSTI C IMAGING PROCEDURES documented in this encounter Visit Diagnoses Diagnosis Scoliosis- Primary Pain Back Thoracic Kyphosis Osteoporosis Fracture Vertebra Compression Lumbar Closed Subsequent Scoliosis Kyphosis documented in this encounter
--- OUTSIDE RECORDS SUMMARY | 2023-10-20 10:54 | XMS_ITS | Encounter Summary ---
Author Name Unknown Organization [facility] Address [address] [place] [address] Care Team Providers Care Residential Appliance Repair Technician Name Role Phone Unavailable Primary Care Provider Unavailabl e Reason for Referral * Outpatient (Routine) - Closed Specialty Diagnoses / Procedures Referred By Oscar gloria Referred To Contact Spine Diagnoses Pain Back Thoracic Oswald Pepper M.D. [address] [place] [phone] [facility] Referral ID Status Reason Start Date Expiration Date Visits Re quested Visits Authorized [id number] Closed 11/16/2022 11/16/2023 1 1 PULLING MACHINE OPERATOR Encounter Details Date Type Department Care Team (Late st Contact Info) Description 11/16/2022 Orders Only Department of Orthopedic Surgery in [place], [place] [address] [place] [phone] Oswald Pepper M.D. [address] [place] [phone] Pain Back Thoracic (Primary Dx) Social History Tobacco Use Types Packs/Day Years Used Date Smoking Tobacco: Never Assessed Nutrition Answer Date Recorded Nutrition: EVOO Fat Source Unknown 11/08 Nutrition: Servings of Fruits/Vegetables per Day Not on file 11/08/2022 Dental Answer Date Recorded Dental: Regular Dentist Unknown 11/08/19 Sex and Gender Information Value Date Recorded Sex Assigned at Female 11/29/2022 8:21 PM PICK PULLING MACHINE OPERATOR Gender Identity Female 11/29/2022 8:21 PM PICK PULLING MACHINE OPERATOR Sexual Orientation Straight 11/29/2022 8: 21 PM PICK PULLING MACHINE OPERATOR documented as of this encounter Plan of Treatment Scheduled Referrals Name Type Priority Associated Diagnoses Orde r Schedule Spine Center - General consult (clinic) Outpatient Referral Routine Pain Back Thoracic Expected: 11/16/2022 (Approximate), Expires: 02/14/2024 documented as of this encounter Visit Diagnoses Diagnosis Pain Back Thoracic- Primary documented in this encounter
--- OUTSIDE RECORDS SUMMARY | 2023-10-20 10:54 | XMS_ITS | Encounter Summary ---
Author Name Unknown Organization [facility] Address [address] [place] [address] Care Team Providers Care Conference Director Name Role Phone Unavailable Primary Care Provider Unavailabl e Encounter Details Date Type Department Care Team (Latest Contact Info) Description 11/30/2022 2:00 PM BLUEPRINT DUPLICATOR Clinical Communication Virtual Review in [place], [place] [address] [place], [place] [phone] Social History Tobacco Use Types Packs/Day Years [...] Sex Assigned at Female 11/29/2022 8:21 PM BLUEPRINT DUPLICATOR Gender Identity Female 11/29/2022 8:21 PM BLUEPRINT DUPLICATOR Sexual Orientation Straight 11/29/2022 8: 21 PM BLUEPRINT DUPLICATOR documented as of this encounter Plan of Treatment Not on file documented as of this encounter Visit Diagnoses Not on filedocumented in this encounter
--- NOTE | 2023-10-20 11:15 | CRLHL7_ITS ---
For Patients: As a result of the Century Cures Act, medical imaging exams and procedure reports are released immediately into your electronic medical record. You may view this report before your referring provider. If you have questions, please contact your health care provider. Technique: Double-contrast esophagram performed after the uneventful administration of thin barium in the upright and oblique prone positions. Fluoroscopy time 53 seconds. Indication: Dysphagia Comparison: None. Findings: Esophagus: Numerous tertiary contractions are present throughout the mid and distal esophagus with associated delayed esophageal clearance. A small diverticulum is noted at the upper esophagus. No evidence of achalasia. Gastroesophageal reflux: Present extending to the proximal esophagus. Impression: Spontaneous reflux with tertiary contractions present along with diminished esophageal motility. Dictated by Kyle Krause MD @ 10/20/2023 12:19:28 PM (Electronically Signed)
== END 2023-10-20 10:48 | disposition home or self-care (01) ==
LOC: RAD 10:50
PROVIDERS: PCP Family Medicine; Visit Provider Internal Medicine Gastroenterology
DX: R13.10 Dysphagia, unspecified (principal); K21.9 Gastro-esophageal reflux disease without esophagitis
CPT/HCPCS: 74221

== ENCOUNTER 2024-04-20 04:36 | Outpatient (CLI) | payer MEDICARE, OTHER, BC, SELFPAY ==
--- OUTSIDE RECORDS SUMMARY | 2024-04-21 01:43 | XMS_ITS | Clinical Summary ---
Author Organization [facility] Address [place], [place] [address] Care Team Providers Care Housing Assistant Property Manager Name Role Phone Natalia Everett DO Primary Care Provider [phone] Allergies Active Allergy Reactions Criticality Noted Date [...] Comments Blood Pressure 138/64 10/11/2023 2:57 PM SALVAGER HELPER Pulse 55 10/11/2023 2:57 PM SALVAGER HELPER Temperature 36.6 ??C (97.8 ??F) 11/30/2022 10:[address] Respiratory Rate 16 10/13/2022 9:27 AM SALVAGER HELPER Oxygen Saturation 100% 10/11/2023 2:57 PM SALVAGER HELPER Inhaled Oxygen Concentration - - Weight 50.4 kg (111 lb 3.2 oz) 10/11/2023 2:57 P M SALVAGER HELPER Height 150.2 cm (4' 11.13) 10/11/2023 8:[address] Body Mass Index 22.36 10/11/2023 8:17 AM SALVAGER HELPER Plan of Treatment Health Maintenance Due Date [...] XR DXA BONE DENSITY 2 SITES AXIAL [43168.1] (04/03/2023 10:03 AM CDT) Anatomical Region Laterality [...] recommended in 3-5 years. Thais Barker PA-C [facility] 04/06/2023 Narrative 04/06/2023 1:06 PM CDT For Patients: Results are automatically released to your [facility] account once available, in compliance with federal regulations. This means that you may see your results before your provider has had a chance to review them. Please allow 2-3 business days for your provider to comment on the results. XR DXA Bone Mineral Density (BMD) EXAM LOCATION: [address] [address] PATIENT NAME: Ingrid Granger DATE OF : [...] two scanners are made by the same protection engineer. 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
--- OUTSIDE RECORDS SUMMARY | 2024-04-21 01:43 | XMS_ITS ---
Author Organization [facility] Address [address] [place] [address] Care Team Providers Care Enterprise Security Architect Name Role Phone Unavailable Unavailable Unavailable Surgery Details Not on file Complications Check Surgery Details section. Procedure Estimated Blood Loss Check Surgery Details section. Procedure Findings Check Surgery Details section. Procedure Specimens Taken Check Surgery Details section.
--- OUTSIDE RECORDS SUMMARY | 2024-04-21 01:43 | XMS_ITS | Encounter Summary ---
Author Organization [facility] Address [address] [place] [address] Care Team Providers Care Menagerie Caretaker Name Role Phone Natalia Everett DO Primary Care Provider [phone] Encounter Details Date Type Department Care Team [...] Sex Assigned at Female 11/23/2023 2:16 PM WAVE SOLDER OFFBEARER Gender Identity Not on file Sexual Orientation Not on file documented as of this encounter Plan of Treatment Not on file documented as of this encounter Visit Diagnoses Not on filedocumented in this encounter Care Teams Menagerie Caretaker Relationship Specialty Start Date End Date Natalia Everett DO [address] [place] [address] PCP - General Family Practice 02/19/24 documented as of this encounter
--- OUTSIDE RECORDS SUMMARY | 2024-04-21 01:43 | XMS_ITS | Clinical Summary ---
Author Organization [facility] Address [address] [place] [address] Care Team Providers Care Seconds Inspector Name Role Phone Elsewhere, Pcp Primary Care Provider Unavailabl e Source Comments Patient records contain information from all sites at [facility]. For routine questions regarding patient records, call [phone] during business hours, M-F 8:00 AM - 5:00 PM Central Time. Record requests for emergency care only can be directed to [phone] at any time.[facility] Allergies Active Allergy Reactions Criticality Noted [...] often do you attend chur ch or yarsanism services? More than 4 times per year 12/26/2022 Do you belong to any clubs o r organizations such as mormonism groups, unions, fraternal or athletic groups, or [...] and heating? Not hard at all 12/26/2022 [facility] - Occupational [...] place to sleep or slept in a intermediate (including now)? No 12/26/2022 Nutrition Answer Date [...] Sex Assigned at Female 11/29/2022 8:21 PM FIRE EXTINGUISHER SPRINKLER INSPECTOR Gender Identity Female 11/29/2022 8:21 PM FIRE EXTINGUISHER SPRINKLER INSPECTOR Sexual Orientation Straight 11/29/2022 8: 21 PM FIRE EXTINGUISHER SPRINKLER INSPECTOR Last Filed Vital Signs Vital Sign Reading Time Taken Comments Blood Pressure 137/54 12/30/2022 9:06 AM CDT Pulse 52 12/30/2022 9:06 AM CDT Temperature - - Respiratory Rate - - Oxygen Saturation - - Inhaled Oxygen Concentration - - Weight 45.5 kg (100 lb 3.2 oz) 12/01/2022 3:23 P M FIRE EXTINGUISHER SPRINKLER INSPECTOR Height 151.9 cm (4' 11.8) 12/01/2022 3:23 PM CS T Body Mass Index 19.7 12/01/2022 3:23 PM FIRE EXTINGUISHER SPRINKLER INSPECTOR Plan of Treatment Health Maintenance Due Date [...] Zoster Vaccines Completed 02/19/2022, 12/07/2021 Care Teams Seconds Inspector Relationship Specialty Start Date End Date Elsewhere, Pcp PCP - General Internal Medicine 12/30/22
--- OUTSIDE RECORDS SUMMARY | 2024-04-21 01:43 | XMS_ITS | Encounter Summary ---
Author Organization [facility] Address [address] [facility] [place] [address] Care Team Providers Care Premium Auditor Name Role Phone Natalia Everett DO Primary Care Provider [phone] Encounter Details Date Type Department Care Team (Latest Contact Info) Description 02/19/2024 Travel Social History Tobacco Use Types Packs/Day Years Used Date Smoking Tobacco: Never Smokeless Tobacco: Never Adolescent Education Answer Date Record ed Getting School Help Needed Not on file 11/23 Sex and Gender Information Value Date Recorded Sex Assigned at Female 11/23/2023 2:16 PM CLINICAL INFORMATICS MANAGER Gender Identity Not on file Sexual Orientation Not on file documented as of this encounter Plan of Treatment Not on file documented as of this encounter Visit Diagnoses Not on filedocumented in this encounter Care Teams Premium Auditor Relationship Specialty Start Date End Date Natalia Everett DO [address] [place] [address] PCP - General Family Practice 02/19/24 documented as of this encounter
--- OUTSIDE RECORDS SUMMARY | 2024-04-21 01:43 | XMS_ITS | Referral Summary ---
Author Organization [facility] Address [address] [place] [address] Care Team Providers Care Refrigerator Crater Name Role Phone Elsewhere, Pcp Primary Care Provider Unavailabl e Source Comments Patient records contain information from all sites at [facility]. For routine questions regarding patient records, call [phone] during business hours, M-F 8:00 AM - 5:00 PM Central Time. Record requests for emergency care only can be directed to [phone] at any time.[facility] Allergies Active Allergy Reactions Criticality Noted [...] often do you attend chur ch or restoration services? More than 4 times per year 12/26/2022 Do you belong to any clubs o r organizations such as christianity groups, unions, fraternal or athletic groups, or [...] and heating? Not hard at all 12/26/2022 [facility] - [...] place to sleep or slept in a half-way (including now)? No 12/26/2022 Nutrition Answer Date [...] Sex Assigned at Female 11/29/2022 8:21 PM DIRECTOR OF FOOD AND NUTRITION Gender Identity Female 11/29/2022 8:21 PM DIRECTOR OF FOOD AND NUTRITION Sexual Orientation Straight 11/29/2022 8: 21 PM DIRECTOR OF FOOD AND NUTRITION Last Filed Vital Signs Vital Sign Reading Time Taken Comments Blood Pressure 137/54 12/30/2022 9:06 AM CDT Pulse 52 12/30/2022 9:06 AM CDT Temperature - - Respiratory Rate - - Oxygen Saturation - - Inhaled Oxygen Concentration - - Weight 45.5 kg (100 lb 3.2 oz) 12/01/2022 3:23 P M DIRECTOR OF FOOD AND NUTRITION Height 151.9 cm (4' 11.8) 12/01/2022 3:23 PM CS T Body Mass Index 19.7 12/01/2022 3:23 PM DIRECTOR OF FOOD AND NUTRITION Plan of Treatment Not on file Care Teams Refrigerator Crater Relationship Specialty Start Date End Date Elsewhere, Pcp PCP - General Internal Medicine 12/30/22
--- OUTSIDE RECORDS SUMMARY | 2024-04-21 01:43 | XMS_ITS | Encounter Summary ---
Author Organization [place] Address [address] [place] [address]. [place] [address] Care Team Providers Care Free Lance Model Name Role Phone Natalia Everett Lauren ASHRAF Primary Care Provider [phone] Reason for Visit * Reason Comments Shoulder Pain Encounter Details Date Type Department Care Team (Late st Contact Info) Description 04/10/2024 2:20 PM CDT Office Visit [facility] Spine and Neurosurgery [address] [place] [address] Juancarlos Godoy DO [address] [place] [id number] Biceps tendinopathy, left (Primary Dx); Primary osteoarthritis [...] Sex Assigned at Female 11/23/2023 2:16 PM CARE TRANSITION COORDINATOR Gender Identity Not on file Sexual Orientation [...] Godoy DO - 04/10/2024 2:20 PM CDT [facility] Injection Requirements A transit driver is required for all fluoroscopically-guided injections. [...] anesthetics, iodine, or contrast dye should contact [facility] to further discuss these considerations. Patients scheduled [...] than 3.0. Please contact the Spine Center (#[phone]) if you are taking any prescription blood-thinning [...] 5/5 Shoulder abduction left 5/5, right 5/5 Pets Salesperson left 5/5, right 5/5 --NEUROLOGIC: Sensation to [...] arm documented in this encounter Care Teams Free Lance Model Relationship Specialty Start Date End Date Natalia Everett DO [address] [place] [address] PCP - General Family Practice 02/19/24 documented as of this encounter
--- OUTSIDE RECORDS SUMMARY | 2024-04-21 01:43 | XMS_ITS | Encounter Summary ---
Author Organization [facility] Address [address] [place] [address]. [place] [address] Care Team Providers Care Setter Out Name Role Phone MargueriteNatalia Lauren ASHRAF Primary Care Provider [phone] Reason for Visit * Reason Comments Pain [...] W [address]ES [address] MP[address] Juancarlos Lopez DO [address] [place] [address] Juancarlos Godoy DO [address] [place] [address] Referral ID Status Reason Start Date Expiration Date Visits Re quested Visits Authorized [id number] Closed 02/19/2024 02/18/2025 1 1 Encounter Details Date Type Department Care Team (Late st Contact Info) Description 02/19/2024 9:00 AM CDT Radiology Injection Office Visit [facility] [address] [facility] [address] [place] [address] Juancarlos Godoy DO [address] [place] [phone] Osteoarthritis of shoulder region (Primary Dx) Social History Tobacco Use Types Packs/Day Years Used Date Smoking Tobacco: Never Smokeless Tobacco: Never Adolescent Education Answer Date Record ed Getting School Help Needed Not on file 11/23 Sex and Gender Information Value Date Recorded Sex Assigned at Female 11/23/2023 2:16 PM 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 Messages received after hours will be returned [...] WEEKS. Please call Spine Center Scheduling -- [phone] for the appointment if you don't hear from the Spine Center in the next couple days documented in this encounter Progress Notes * Gracy Muse - 02/19/2024 9:00 AM CDT Pre-procedure Intake If YES to any questions or NO to having a carry all driver Please complete laminated checklist and leave [...] seven days? NO Do you have a carry all driver? Yes Are you or ? NO [...] Grounding pad at the left upper back [facility]: [id number] Expires: 04-12-2025 Medications: Lidocaine 1% Lidocaine 2% [...] mLs documented in this encounter Care Teams Setter Out Relationship Specialty Start Date End Date Natalia Everett DO [address] [place] [address] PCP - General Family Practice 02/19/24 documented as of this encounter
--- OUTSIDE RECORDS SUMMARY | 2024-04-21 01:43 | XMS_ITS | Encounter Summary ---
Author Organization [facility] Address [address] [place] [address]. [place] [address] Care Team Providers Care Shuttle Veneering Supervisor Name Role Phone Natalia Everett Primary Care Provider [phone] Reason for Visit * Reason Comments Injections * Physical Medicine (Routine) - Closed Specialty Diagnoses / Procedures Referred By Oscar gloria Referred To Contact Pain Medicine / Physical Medicine and Rehab Diagnoses Biceps tendinopathy, left Other synovitis and tenosynovitis, left upper arm Left biceps tendon sheath injection under ultrasound guidance Procedures PAIN US TENDON SHEATH INJECTION SPINE US [address] [place] [address] [place] [address] Juancarlos Godoy DO [address] [place] [address] Referral ID Status Reason Start Date Expiration Date Visits Re quested Visits Authorized [id number] Closed 04/12/2024 04/12/2025 1 1 Encounter Details Date Type Department Care Team (Late st Contact Info) Description 04/12/2024 9:40 AM CDT Radiology Injection Office Visit [facility] Spine and Neurosurgery [address] [place] [address] [address] [place] [address] Juancarlos Godoy DO [address] [place] [phone] Biceps tendinopathy, left; Other synovitis and tenosynovitis, [...] Sex Assigned at Female 11/23/2023 2:16 PM TUBE CLEANER Gender Identity Not on file Sexual Orientation [...] by calling Spine Center Navigation Nurses at [phone]. Messages received after hours will be returned [...] relieved by lying down, please call the [facility] to speak with a clinical [...] mg documented in this encounter Care Teams Shuttle Veneering Supervisor Relationship Specialty Start Date End Date Natalia Everett DO [address] [place] [address] PCP - General Family Practice 02/19/24 documented as of this encounter
--- OUTSIDE RECORDS SUMMARY | 2024-04-21 01:43 | XMS_ITS | Referral Summary ---
Author Organization [facility] Address [address] [place] [address] Care Team Providers Care Global Logistics Manager Name Role Phone Marguerite Nataliawilliam Aguilar DO Primary Care Provider Encounters Date Type Department Care Team Description 04/12/2024 Travel 04/12/2024 9:40 AM CDT Radiology Injection Office Visit [facility] Spine and Neurosurgery [address] [place] [address] [address] [place] [address] Juancarlos Godoy DO Biceps tendinopathy, left; Other synovitis and tenosynovitis, left upper arm 04/10/2024 Travel 04/10/2024 2:20 PM CDT Office Visit [facility] Spine and Neurosurgery [address] [place] [address] [address] [place] [address] Juancarlos Godoy DO Biceps tendinopathy, left (Primary Dx); Primary osteoarthritis of left shoulder; Chronic left shoulder pain; Other synovitis and tenosynovitis, left upper arm 02/19/2024 Travel 02/19/2024 9:00 AM CDT Radiology Injection Office Visit [facility] [address] [facility] [address] [place] [phone] Juancarlos Godoy DO Osteoarthritis of shoulder region (Primary Dx) 01/26/[address] [facility] Spine and Neurosurgery [address] [place] [address] [address] [place] [address] Juancarlos Godoy DO Appointment from Last 3 [...] previous episodes (2008, 2009); no anticoagulation. Overview: Family Independence Case Manager: Dr. Jevon Shelton ([facility]) Overview: Overview: Family Independence Case Manager: Dr. Jevon Shelton ([facility]) Overview: Family Independence Case Manager: Dr. Jevon Shelton ([facility]) Hyperlipidemia 04/01/2010 Social History Tobacco Use Types Packs/Day Years Used Date Smoking Tobacco: Never Smokeless Tobacco: Never Tobacco Cessation:Counseling Given: Not Answered PHQ-2 Answer Date Recorded PHQ-2 Score 0 04/10/2024 Adolescent Education Answer Date Record ed Getting School Help Needed Not on file 11/23 Sex and Gender Information Value Date Recorded Sex Assigned at Female 11/23/2023 2:16 PM QUARANTINE INSPECTOR Gender Identity Not on file Sexual Orientation [...] ORDERABLES from Last 3 Months Care Teams Global Logistics Manager Relationship Specialty Start Date End Date Natalia Everett DO [address] [place] [address] PCP - General Family Practice 02/19/24
--- OUTSIDE RECORDS SUMMARY | 2024-04-21 01:43 | XMS_ITS | Encounter Summary ---
Author Organization [facility] Address [address] [facility] [place] [address] Care Team Providers Care Shade Cutter Name Role Phone Natalia Everett DO Primary Care Provider [phone] Encounter Details Date Type Department Care Team [...] Sex Assigned at Female 11/23/2023 2:16 PM END POLISHER Gender Identity Not on file Sexual Orientation Not on file documented as of this encounter Plan of Treatment Not on file documented as of this encounter Visit Diagnoses Not on filedocumented in this encounter Care Teams Shade Cutter Relationship Specialty Start Date End Date Natalia Everett DO [address] [place] [address] PCP - General Family Practice 02/19/24 documented as of this encounter
--- OUTSIDE RECORDS SUMMARY | 2024-04-21 01:43 | XMS_ITS | Encounter Summary ---
Author Organization [facility] Address [address] [place] [address]. [place] [address] Care Team Providers Care Cook Fish Eggs Name Role Phone Unavailable Primary Care Provider Unavailabl e Reason for Visit * Reason Onset Date Comments Appointment 01/26/2024 Encounter Details Date Type Department Care Team (Late st Contact Info) Description 01/26/2024 Telephone [facility] Spine and Neurosurgery [address] [place] [phone] Juancarlos Godoy DO [address] [place] [address] Appointment Social History Tobacco Use Types Packs/Day Years Used Date Smoking Tobacco: Never Smokeless Tobacco: Never Adolescent Education Answer Date Record ed Getting School Help Needed Not on file 11/23 Sex and Gender Information Value Date Recorded Sex Assigned at Female 11/23/2023 2:16 PM GLOBAL TRANSPORTATION MANAGER Gender Identity Not on file Sexual Orientation Not on file documented as of this encounter Miscellaneous Notes * Telephone Encounter - Cece Miramontes RN - 01/26/2024 11:39 AM CDT Chart reviewed. Phone call was placed yesterday by schedulers at [facility]. Phone call to patientto discuss. Transferred patient to the filter changer. * Telephone Encounter - Marisol Elvira - 01/26/2024 11:19 AM CDT Other: pt is calling for Dr. Godoy or his nurse to report that she has not heard back from thehospital yet. Could we send this information to you in ANPI or would you prefer to receive a phone call?: Patient would prefer a phone call Okay to leave a detailed message?: No at Cell number on file: Telephone Information: documented in this encounter Plan of Treatment Not on file documented as of this encounter Visit Diagnoses Not on filedocumented in this encounter
--- OUTSIDE RECORDS SUMMARY | 2024-04-21 01:43 | XMS_ITS | Clinical Summary ---
Author Organization [facility] Address [address] [facility] [place] [address] Care Team Providers Care Nutrition Educator Name Role Phone Natalia Everett DO Primary Care Provider [phone] Allergies Active Allergy Reactions Criticality Noted Date [...] previous episodes (2008, 2009); no anticoagulation. Overview: Room Worker: Dr. Jevon Shelton ([facility]) Overview: Overview: Room Worker: Dr. Jevon Shelton ([facility]) Overview: Room Worker: Dr. Jevon Shelton ([facility]) Hyperlipidemia 04/01/2010 Encounters Date Type Department Care Team Description 04/12/2024 9:40 AM CDT Radiology Injection Office Visit [facility] Spine and Neurosurgery [address] [place] [phone] Juancarlos Godoy DO Biceps tendinopathy, left; Other synovitis and tenosynovitis, left upper arm 04/12/2024 Travel 04/10/2024 2:20 PM CDT Office Visit [facility] Spine and Neurosurgery [address] [facility] [address] [place] [address] Juancarlos Godoy DO Biceps tendinopathy, left (Primary Dx); Primary osteoarthritis of left shoulder; Chronic left shoulder pain; Other synovitis and tenosynovitis, left upper arm 04/10/2024 Travel 02/19/2024 9:00 AM CDT Radiology Injection Office Visit [facility] [address] [facility] [address] [place] [phone] Juancarlos Godoy DO Osteoarthritis of shoulder region (Primary Dx) 02/19/2024 Travel 01/26/2024 Telephone [facility] Spine and Neurosurgery [address] [facility] [address] [place] [address] Juancarlos Godoy DO Appointment from Last 3 [...] Sex Assigned at Female 11/23/2023 2:16 PM BARGE ENGINEER Gender Identity Not on file Sexual Orientation [...] ORDERABLES from Last 3 Months Care Teams Nutrition Educator Relationship Specialty Start Date End Date Natalia Everett DO [address] [place] [address] PCP - General Family Practice 02/19/24
--- OUTSIDE RECORDS SUMMARY | 2024-04-21 01:43 | XMS_ITS | Encounter Summary ---
Author Organization [facility] Address [address] [facility] [place] [address] Care Team Providers Care Supervisor Dry Cleaning Name Role Phone Natalia Everett DO Primary Care Provider [phone] Encounter Details Date Type Department Care Team (Late st Contact Info) Description 01/19/2024 Telephone Infusion Resource [facility] [address] [place] [phone] Lor Cooney, RN Social History Tobacco Use Types Packs/Day Years Used Date Smoking Tobacco: Never Smokeless Tobacco: Never Adolescent Education Answer Date Record ed Getting School Help Needed Not on file 11/23 Sex and Gender Information Value Date Recorded Sex Assigned at Female 11/23/2023 2:16 PM HOUSEHOLD COOK Gender Identity Not on file Sexual Orientation [...] RN Sent: 01/11/2024 3:05 PM CDT To: [facility] Procedure Support Pool Subject: Left [...] region documented in this encounter Care Teams Supervisor Dry Cleaning Relationship Specialty Start Date End Date Natalia Everett DO [address] [place] [address] PCP - General Family Practice 02/19/24 documented as of this encounter
== END 2024-04-20 04:37 | disposition home or self-care (01) ==
PROVIDERS: PCP Family Medicine; Visit Provider Family Medicine
DX: S79.911A Unspecified injury of right hip, initial encounter (principal); S09.90XA Unspecified injury of head, initial encounter; W18.30XA Fall on same level, unspecified, initial encounter; Y92.009 Unspecified place in unspecified non-institutional (private) residence as the place of occurrence of the external cause
CPT/HCPCS: A0425; A0429

== ENCOUNTER 2024-04-20 04:50 | Observation (INO) | payer MEDICARE, BC, OTHER, SELFPAY ==
[2024-04-20] VITALS (32 sets, daily range): BP systolic 123–140; BP diastolic 50–92; PULSE 66–91; RESP 18–20; TEMP 36.6–36.9; O2SAT 87–97; BMI 20.8; BMI 23.4
--- NOTE | 2024-04-20 05:17 | ED_ITS ---
HPI - General Adult General Chief complaint: Hip Injury/Pain Stated complaint: Fall Time Seen by Provider: 04/20/24 05:17 History of Present Illness HPI narrative: CC: Right Hip Pain pt. was going to the bathroom when she tripped and hit right hip and head. denies LOC. skin tear to right elbow 83-year-old woman presenting to the emergency department via EMS after a fall. She notes no pain other than in her butt and maybe a little in her elbow. 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 When she went to get up she noted that she could not get up or bear weight on that right side due to the pain in her hip/buttock. A clarification is that she had managed to drag or crawl herself to the toilet where she was able to get up after the initial fall and then into bed. Upon trying to get up from bed, she would estimate 3 hours later, was unable to bear any weight or walk due to pain. She is also noted to have sustained a skin tear to her right elbow. She believes she hit her head but do es not have any pain there or in her back. No neck pain. She is on no anticoagulants. She denies loss of consciousness. no abdominal pain. No shortness of breath or chest pain. No preceding palpitations to this event. Reports that dentition feels normal. Related Data Home Medications ?Medication ?Instructions ?Recorded ?Confirmed acetaminophen 500 mg tablet 500 mg PO Q6H PRN 11/07/22 04/20/24 aspirin 81 mg chewable tablet 81 mg PO DAILY 11/07/22 04/20/24 atorvastatin 20 mg tablet 20 mg PO DAILY 11/07/22 04/20/24 cholecalciferol (vitamin D3) 25 1,000 unit PO DAILY 11/07/22 04/20/24 mcg (1,000 unit) capsule docusate sodium 100 mg capsule 100 mg PO BID PRN 11/07/22 04/20/24 (Colace) levothyroxine 25 mcg capsule 25 mcg PO DAILY 11/07/22 04/20/24 metoprolol succinate 25 mg 25 mg PO DAILY 11/07/22 04/20/24 tablet,extended release 24 hr mirtazapine 15 mg tablet 15 mg PO QHS 11/07/22 04/20/24 multivitamin (Daily Multi-Vitamin 1 tab PO DAILY 11/07/22 04/20/24 tablet) lisinopril 10 mg tablet 10 mg PO DAILY 04/20/24 04/20/24 omeprazole 40 mg capsule,delayed 40 mg PO DAILY 04/20/24 04/20/24 release Allergies Allergy/AdvReac Type Severity Reaction Status Date / Time Penicillins Allergy Unknown Verified 04/20/24 07:36 Sulfa (Sulfonamide Allergy Unknown Verified 04/20/24 07:36 Antibiotics) Review of Systems Status of ROS: Reports: 6 or more systems reviewed and unremarkable except as noted in History and below [facility] Medical History Cataract ?H26.9 - Unspecified cataract (ICD-10) Osteopenia of multiple sites ?M85.89 - Other specified disorders of bone density and structure, multiple sites (ICD-10) Episodic atrial fibrillation ?I48.0 - Paroxysmal atrial fibrillation (ICD-10) Acquired hyperlipoproteinemia ?E78.5 - Hyperlipidemia, unspecified (ICD-10) Essential (primary) hypertension ?I10 - Essential (primary) hypertension (ICD-10) Hypothyroidism ?E03.9 - Hypothyroidism, unspecified (ICD-10) Surgical History History of repair of hiatal hernia ?Z98.890 - Other specified postprocedural states (ICD-10) ?Z87.19 - Personal history of other diseases of the digestive system (ICD-10) S/P CABG x 3 ?Z95.1 - Presence of aortocoronary bypass graft (ICD-10) Social History Smoking Status: Former smoker Second hand tobacco smoke exposure: No How often do you have a drink containing alcohol: never AUDIT-C Alcohol total score: 0 Non-prescribed substance use: denies use Caffeine: No Exam Narrative: Exam Narrative: Very pleasant. Fully alert. GCS 15. Helpful with exam. Breathing easily. Was noted on initial triage to be lower 80s on room air. Review of records shows her typically to be in upper 90s. Head is atraumatic. Eyes are bright. Pupils equal. Cranial nerves 2-12 intact. No fluid at the ear canals. No Beasley sign. Neck nontender supple. Back with significant midthoracic kyphosis but nontender. No deformity otherwise. Lungs are clear other than some clearing crepitus in the bases. Trachea midline Heart in regular rate and rhythm. Moving upper extremities without difficulty. There is a 3/4 by itch and half abrasion/skin tear at the outer right elbow. She is flexing standing the elbow without difficulty. A Band-Aid had been placed here. No active bleeding. She is flexing and rotating her right hip without difficulty. She indicates some pain in the groin area. I am unable to reproduce pain to palpation about the right hip or buttock. Left hip is moved without difficulty as well. Lower extremities without notable edema. She is well-perfused. Dentition intact. Const: Vital Signs, click to edit/add: Vital Signs - 24 hr 04/20/24 04:55 04/20/24 05:31 04/20/24 05:35 Temperature 98.4 F Pulse Rate Pulse Rate [Right Pulse Oximeter] 76 Respiratory Rate 20 Blood Pressure Blood Pressure [Ri ght Upper Arm] 138/92 H Pulse Oximetry 92 94 94 Oxygen Delivery Me thod Room Air Nasal Cannula Oxygen Flow Rate 2 04/20/24 06:22 04/20/24 06:31 Temperature Pulse Rate 69 78 Pulse Rate [Right Pulse Oximeter] Respiratory Rate 20 20 Blood Pressure 140/57 H 134/50 L Blood Pressure [Ri ght Upper Arm] Pulse Oximetry 95 94 Oxygen Delivery Me thod Oxygen Flow Rate Documenting provider has reviewed patient's vital signs: yes Course Vital Signs Vital signs: Initial Vital Signs Temperature 98.4 F 04/20/24 04:55 Temperature Source Temporal Artery Scan 04/20/24 04:55 Pulse Rate 76 04/20/24 04:55 Respiratory Rate 20 04/20/24 04:55 Blood Pressure 138/92 H 04/20/24 04:55 Blood Pressure Mean 107 H 04/20/24 04:55 Blood Pressure Position Supine 04/20/24 04:55 Pulse Oximetry 92 04/20/24 04:55 Oxygen Delivery Method Room Air 04/20/24 04:55 Vital Signs Temperature 98.4 F 04/20/24 04:55 Pulse Rate 76 04/20/24 04:55 Respiratory Rate 20 04/20/24 04:55 Blood Pressure 138/92 H 04/20/24 04:55 Pulse Oximetry 92 04/20/24 04:55 Oxygen Delivery Method Room Air 04/20/24 04:55 Temperature 98.4 F 04/20/24 04:55 Pulse Rate 78 04/20/24 06:31 Respiratory Rate 20 04/20/24 06:31 Blood Pressure 134/50 L 04/20/24 06:31 Pulse Oximetry 94 04/20/24 06:31 Oxygen Delivery Method Nasal Cannula 04/20/24 05:31 Oxygen Flow Rate 2 04/20/24 05:31 Medications Administered Medications: Discontinued Medications Generic Name Dose Route Start Last Admin Trade Name Freq PRN Reason Stop Dose Admin Sodium Chloride 1,000 mls @ 1,000 mls/hr 04/20/24 06:57 04/20/24 07:02 0.9 % Sodium Chloride 1000 Ml IV 04/20/24 07:56 1,000 mls/hr .Q1H ONE Administration Medical Decision Making MDM Narrative Medical decision making narrative: She does describe/demonstrate 2 locations of pain about the right hip; 1 being the buttock and the other being the groin. Certainly could represent upper hip fracture, osteoarthritic pain within the joint itself or possibly a pubic ramus fracture. Does not outwardly seem to have sustained significant head injury. And not anticoagulated. Deferring head imaging at this time. Does not appear to need imaging of any other joints at this time. Unclear why somewhat hypoxic rather did of to baseline. Did not receive any medication per report from EMS. Has no subjective symptoms of shortness of breath or chest pain. Checking labs for anemia and will x-ray chest for pneumonia or pneumothorax. Pulmonary embolus would be in differential. Chest x-ray shows postoperative changes. I do not see pneumonia or pneumothorax or pulmonary effusion. D-dimer pending. A pelvic and hip x-rays by my read show marked degenerative changes in the hip joint. There is irregularity in the inferior pubic ramus on the right but I am not convinced it is a fracture; there is no other corresponding fracture in the ring. White count returns little elevated. D-dimer markedly elevated. I am unsure if this would represent contusion or hematoma though I can not see 1 currently on external exam. In the setting though of what seems to be new hypoxia we will CTA chest. I think also warrants CT imaging of the pelvis a since not visualized on basic x-ray and inability to walk. Would be prudent to CT head as well at this point. Urinalysis pending. Will be handing off at change of shift Lab Data Lab results reviewed: Yes I reviewed the patient's lab results Labs: Lab Results 04/20/24 04/20/24 04/20/24 Range/Units 05:35 05:35 05:35 WBC 14.27 H (4.50-11.00) K/uL RBC 4.15 (4.00-5.20) m/uL Hgb 12.6 (12.0-16.0) gm/dL Hct 39.7 (33.0-51.0) % MCV 96 (80-100) fL MCH 30 (26-34) pg MCHC 32 (32-36) gm/dL RDW Coeff of Alba 12.9 (11.5-15.5) % Plt Count 232 (140-440) K/uL Neut % (Auto) 81.2 H (42.0-72.0) % Lymph % (Auto) 11.2 L (20-44) % Stoddard % (Auto) 5.0 (0.0-11.0) % Eos % (Auto) 1.8 (0.0-7.0) % Baso % (Auto) 0.3 (0.0-3.0) % Neut # (Auto) 11.60 H (1.7-7.0) K/uL Lymph # (Auto) 1.60 (0.90-2.90) K/uL Stoddard # (Auto) 0.70 (0.00-0.90) K/UL Eos # (Auto) 0.30 (0.00-0.50) K/uL Baso # (Auto) 0.00 (0.00-0.30) K/uL Abs Immat Gran (auto) 0.10 (0.00-0.30) K/uL Imm/Tot Granulo (auto) 0.5 % D-Dimer Quant (PE/DVT) > 20.00 H (0.00-0.50) ug/ml VBG pH 7.433 H (7.32-7.43) VBG pCO2 44 (40-50) mmHG VBG pO2 35.0 (25-47) mmHG VBG HCO3 29 H (21-28) mmol/L Sodium 139 (135-149) mmol/L Potassium 4.7 (3.6-5.1) mmol/L Chloride 106 (96-114) mmol/L Carbon Dioxide 27 (20-32) mmol/L Anion Gap 6 L (7-15) mEq/L BUN 29 (7-30) mg/dL Creatinine 0.7 (0.5-1.5) mg/dL Estimated Creat Clear 31.04 Estimated GFR 85 ml/min Glucose 101 (60-115) mg/dL Calcium 9.9 (8.4-10.6) mg/dL Magnesium 1.9 Cancelled (1.5-2.6) mg/dL Troponin I < 0.01 L Cancelled (0.01-0.04) ng/mL C-Reactive Protein < 0.5 L (0.5-1.0) mg/dL NT-Pro-B Natriuret Pep 631 pg/mL SARS-CoV-2 (PCR) (Negative) Influenza Type A (PCR) (Negative) Influenza Type B (PCR) (Negative) RSV (PCR) (Negative) POC Troponin I (0.01-0.04) ng/ml 04/20/24 04/20/24 Range/Units 05:35 06:25 WBC (4.50-11.00) K/uL RBC (4.00-5.20) m/uL Hgb (12.0-16.0) gm/dL Hct (33.0-51.0) % MCV (80-100) fL MCH (26-34) pg MCHC (32-36) gm/dL RDW Coeff of Alba (11.5-15.5) % Plt Count (140-440) K/uL Neut % (Auto) (42.0-72.0) % Lymph % (Auto) (20-44) % Stoddard % (Auto) (0.0-11.0) % Eos % (Auto) (0.0-7.0) % Baso % (Auto) (0.0-3.0) % Neut # (Auto) (1.7-7.0) K/uL Lymph # (Auto) (0.90-2.90) K/uL Stoddard # (Auto) (0.00-0.90) K/UL Eos # (Auto) (0.00-0.50) K/uL Baso # (Auto) (0.00-0.30) K/uL Abs Immat Gran (auto) (0.00-0.30) K/uL Imm/Tot Granulo (auto) % D-Dimer Quant (PE/DVT) (0.00-0.50) ug/ml VBG pH (7.32-7.43) VBG pCO2 (40-50) mmHG VBG pO2 (25-47) mmHG VBG HCO3 (21-28) mmol/L Sodium (135-149) mmol/L Potassium (3.6-5.1) mmol/L Chloride (96-114) mmol/L Carbon Dioxide (20-32) mmol/L Anion Gap (7-15) mEq/L BUN (7-30) mg/dL Creatinine (0.5-1.5) mg/dL Estimated Creat Clear Estimated GFR ml/min Glucose (60-115) mg/dL Calcium (8.4-10.6) mg/dL Magnesium (1.5-2.6) mg/dL Troponin I (0.01-0.04) ng/mL C-Reactive Protein (0.5-1.0) mg/dL NT-Pro-B Natriuret Pep Cancelled pg/mL SARS-CoV-2 (PCR) Negative SARS-CoV-2 (Negative) Influenza Type A (PCR) Negative PCR FLU A (Negative) Influenza Type B (PCR) Negative PCR FLU B (Negative) RSV (PCR) Negative PCR RSV (Negative) POC Troponin I 0.00 L (0.01-0.04) ng/ml ECG Data Attestation: I personally reviewed and interpreted this ECG as follows: (Normal sinus rhythm. Rate of 71) Discharge Plan Discharge Clinical Impression: Hip pain, Hypoxia Patient Disposition: Admitted As Observation
--- NOTE | 2024-04-20 05:24 | CRLHL7_ITS ---
For Patients: As a result of the Cures Act, medical imaging exams and procedure reports are released immediately into your electronic medical record. You may view this report before your referring provider. If you have questions, please contact your health care provider. Indication: Fall with right buttock pain. Technique: Pelvis and right hip 3 views. Comparison: None. Findings/Impression: Bones: Alignment is normal. No fractures or bone lesions. No sign of acute injury. 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 Soft tissues: Unremarkable. Dictated by Lonnie Gilman MD @ 04/20/2024 6:43:43 AM (Electronically Signed)
--- NOTE | 2024-04-20 05:30 | CRLHL7_ITS ---
For Patients: As a result of the Cures Act, medical imaging exams and procedure reports are released immediately into your electronic medical record. You may view this report before your referring provider. If you have questions, please contact your health care provider. INDICATION: Hypoxia, fall. TECHNIQUE: Chest 1 views. COMPARISON: None. FINDINGS: Cardiovasculature and mediastinum: Heart size is normal. Unremarkable mediastinum. Lungs and pleural spaces: Lungs are clear. No sign of infiltrate or mass. No sign of pleural effusion. No pneumothorax. 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 No fracture visualized. IMPRESSION: No acute or significant findings. Dictated by Lonnie Gilman MD @ 04/20/2024 6:58:45 AM (Electronically Signed)
--- OUTSIDE RECORDS SUMMARY | 2024-04-20 05:40 | XMS_ITS | Clinical Summary ---
Author Organization [place] Address [address] [facility] [place] [address] Care Team Providers Care Expressive Music Therapist Name Role Phone Natalia Everett DO Primary Care Provider [phone] Allergies Active Allergy Reactions Criticality Noted Date Comments Penicillins Rash Medium 06/19/2010 Sulfa Antibiotics Rash Low 06/19/2010 Medications Medication Sig Dispensed Refills Start Date End Date Status aspirin (ASA) 81 MG chewable tablet Take 81 mg by mouth 05/27/2022 Active atorvastatin (LIPITOR) 20 MG tablet Take 1 tablet by mouth at bedtime 06/30/2022 Active B Complex Vitamins (VITAMIN-B COMPLEX) TABS Take 1 tablet by mouth Active Cholecalciferol (D 1000) 25 MCG (1000 UT) CAPS Take 1,000 Units by mouth 09/16/2022 Active docusate sodium (DSS) 100 MG capsule Take 100 mg by mouth 05/27/2022 Active levothyroxine (SYNTHROID/LEVOTHROID) 25 MCG tablet Take 25 mcg by mouth 06/24/2022 Active lisinopril (ZESTRIL) 10 MG tablet Take 1 tablet by mouth daily 01/27/2023 Active metoprolol succinate ER (TOPROL XL) 25 MG 24 hr tablet Take 1 tablet by mouth daily 06/21/2022 Active mirtazapine (REMERON) 15 MG tablet Take 1 tablet by mouth at bedtime 10/05/2022 Active Multiple Vitamin (ONE-A-DAY ESSENTIAL) TABS Take 1 tablet by mouth daily 09/16/2022 Active omeprazole (PRILOSEC) [address] capsule Take 40 mg by mouth 10/26/2023 Active CALCIUM PO 1200mg. Active Active Problems Problem Noted Date Diagnosed Date Arthritis of left glenohumeral joint 11/03/2023 Diaphragmatic hernia 12/01/2022 History of coronary artery bypass surgery 2021 Overview: In 1982 In 1982 Hypothyroidism (acquired) 05/27/2022 Adenomatous colon polyp 06/28/2019 History of actinic keratoses 01/28/2019 History of basal cell carcinoma 01/28/2019 Chronic bilateral low back pain without sciatica 10/04/2017 Postablative hypothyroidism 10/04/2017 Primary insomnia 09/07/2015 Glucose intolerance (impaired glucose tolerance) 11/28/2014 Trichiasis of eyelid 11/08/2013 Osteopenia of multiple sites 07/02/2013 Hypertension 02/18/2011 Alcohol abuse 07/13/2010 Anemia 07/13/2010 Depression 06/24/2010 Coronary atherosclerosis 06/19/2010 Overview: -1996 coronary artery bypass graft x3 Overview: Overview: -1996 coronary artery bypass graft x3 Overview: -1996 coronary artery bypass graft x3 Paroxysmal atrial fibrillation 06/19/2010 Overview: 2 previous episodes (2008, 2009); no anticoagulation. Overview: Straw Hat Brusher: Dr. Jevon Shelton ([facility]) Overview: Overview: Straw Hat Brusher: Dr. Jevon Shelton ([facility]) Overview: Straw Hat Brusher: Dr. Jevon Shelton ([facility]) Hyperlipidemia 04/01/2010 Encounters Date Type Department Care Team Description 04/12/2024 9:40 AM CDT Radiology Injection Office Visit [facility] [address] [place] [phone] Juancarlos Godoy DO Biceps tendinopathy, left; Other synovitis and tenosynovitis, left upper arm 04/12/2024 Travel 04/10/2024 2:20 PM CDT Office Visit [facility] [address] [place] [address] Juancarlos Godoy DO Biceps tendinopathy, left (Primary Dx); Primary osteoarthritis of left shoulder; Chronic left shoulder pain; Other synovitis and tenosynovitis, left upper arm 04/10/2024 Travel 02/19/2024 9:00 AM CDT Radiology Injection Office Visit [facility] [address] [place] [phone] Juancarlos Godoy DO Osteoarthritis of shoulder region (Primary Dx) 02/19/2024 Travel 01/26/2024 Telephone [facility] [address] [place] [address] Juancarlos Godoy DO Appointment from Last 3 Months Social History Tobacco Use Types Packs/Day Years Used Date Smoking Tobacco: Never Smokeless Tobacco: Never Tobacco Cessation:Counseling Given: Not Answered PHQ-2 Answer Date Recorded PHQ-2 Score 0 04/10/2024 Adolescent Education Answer Date Record ed Getting School Help Needed Not on file 11/23 Sex and Gender Information Value Date Recorded Sex Assigned at Female 11/23/2023 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 Gender Identity Not on file Sexual Orientation Not on file Last Filed Vital Signs Vital Sign Reading Time Taken Comments Blood Pressure 140/60 04/12/2024 9:29 AM CDT Pulse 62 04/12/2024 9:29 AM CDT Temperature 36.7 ??C (98.1 ??F) 04/12/2024 9:29 AM CD T Respiratory Rate 14 01/11/2024 2:58 PM CDT Oxygen Saturation 98% 04/12/2024 9:29 AM CDT Inhaled Oxygen Concentration - - Weight 49.9 kg (110 lb) 04/12/2024 9:29 AM CDT Height 153.7 cm (5' 0.5) 04/12/2024 9:29 AM CDT Body Mass Index 21.13 04/12/2024 9:29 AM CDT Plan of Treatment Health Maintenance Due Date Last Done Comments ADVANCE CARE PLANNING 1938 ANNUAL REVIEW OF HM ORDERS 1938 DEXA 1938 LIPID 1938 TSH W/FREE T4 REFLEX 1938 RSV VACCINE ( & 60+) (1 - 1-dose 60+ series) 1998 FALL RISK ASSESSMENT 2003 COVID-19 Vaccine (2022- season) 2023 07/13/2023, 07/06/2022, 01/20/2022, Additional history exists INFLUENZA VACCINE (#1) 2024 3, 07/07/2022, 07/02/2021, Additional history exists MEDICARE ANNUAL WELLNESS VISIT 10/11/2024 10/11/2023, 07/06/2022 DTAP/TDAP/TD IMMUNIZATION (3 - Td or Tdap) 12/31/2032 12/31/2022, 07/02/2013 Pneumococcal Vaccine: 65+ Years Completed 11/28/2014, 05/17/2011 ZOSTER IMMUNIZATION Completed 02/19/2022, 2 PHQ-2 (once per calendar year) Completed 04/10/2024 HPV IMMUNIZATION Aged Out No longer e ligible based on patient's age to complete this topic IPV IMMUNIZATION Aged Out No longer e ligible based on patient's age to complete this topic MENINGITIS IMMUNIZATION Aged Out No l onger eligible based on patient's age to complete this topic RSV MONOCLONAL ANTIBODY Aged Out No l onger eligible based on patient's age to complete this topic Procedures Procedure Name Priority Date/Time Associated Diagnosis Comments PAIN US TENDON SHEATH INJECTION Routine 04/12/2024 9:52 AM CDT Biceps tendinopathy, left Other synovitis and tenosynovitis, left upper arm PAIN RADIOFREQUENCY ABLATION SHOULDER LEFT Routine 02/19/2024 9:50 AM CDT Osteoarthritis of shoulder region from Last 3 Months Results * PAIN US Tendon Sheath Injection (04/12/2024 9:52 AM CDT) Anatomical Region Laterality Modality PAIN/SPINE Ultrasound Narrative 04/12/2024 3:31 PM CDT Procedure: Ultrasound- guided left biceps tendon sheath injection Procedure Date: Pre Procedure Diagnosis: Left biceps tendinopathy Post Procedure Diagnosis: ??Same Procedure Performed: Left biceps tendon sheath injection with Ultrasound Guidance Clinical Scenario: ??As per office notes Vital Signs: ??As per rooming/preprocedure documentation Side Injected: Left After discussing the risks, benefits, and alternatives to the procedure, the patient expressed understanding and wished to proceed. ??The patient was brought to the procedure suite and placed in the supine position. ??A procedural pause was conducted to verify: ??correct patient identity, procedure to be performed and as applicable, correct side and site, correct patient position, and availability of implants, special equipment or special requirements. ??A simple surgical tray was used. ??Prior to the procedure, the left shoulder was examined with a 12-MHz linear transducer to visualize the glenohumeral joint and determine the optimal needle path. Following this, the left shoulder was prepared with a ChloraPrep scrub, then re-examined using the same transducer, a sterile ultrasound transducer cover, and ultrasound transducer gel. ??Local anesthesia was obtained with 1 mL of 1% lidocaine. Thereafter, using ultrasound guidance, a 2 inch, 25 gauge needle was advanced into the left shoulder biceps tendon sheath. After visualization of the tip in the target area and negative aspiration for blood, a mixture of 20 mg of Kenalog and 2.5 cc of 2% lidocaine was injected into the left biceps tendon sheath. Following the injection, the needle was withdrawn. ??20 mg of Kenalog was wasted. The patient tolerated the procedure well and there were no apparent complications. ??After an appropriate amount of observation, the patient was dismissed from the clinic in good condition under their own power. ?? Images were stored. Pre-pain score: 6/10 Post pain score: 5/10 Juancarlos Godoy DO IMG PAIN MANAGEMEN T ORDERABLES * PAIN Radiofreq Ablation Shoulder Left (02/19/2024 9:50 AM CDT) Anatomical Region Laterality Modality PAIN/SPINE Radio Fluoroscop y Narrative 02/19/2024 10:37 AM CDT Left shoulder joint radiofrequency ablation of suprascapular, axillary, and lateral pectoral articular sensory nerves WITH FLUOROSCOPIC GUIDANCE Performed on: 02/19/2024 Pre-Procedure Diagnosis: Shoulder pain, Osteoarthritis Post-Procedure Diagnosis: ??Same Procedure Performed: Left shoulder joint radiofrequency ablation of suprascapular, axillary, lateral pectoral articular sensory nerves with Fluoroscopic Guidance Clinical Scenario: ??As per office notes Anesthesia/Fluids: ??As per intra-procedure documentation Vital Signs: ??As per intra-procedure documentation Side Injection: ??Left CC: Patient is an 83-year-old female who presents today for a left shoulder joint radiofrequency ablation as ordered by Dr. Godoy. ??The patient complains of chronic left shoulder pain. ??Imaging is reviewed today. The procedure of an left shoulder joint block was discussed in detail along with the risks, including: ??nerve injury, infection, bleeding, and worsening of pain. The patient decided to proceed with the injection and signed informed consent. The patient denies any symptoms of an active infection and denies taking antibiotics. The patient denies taking any prescription blood thinning medications. The patient denies any allergies to iodine or iodine contrast. ?? The patient was placed in a right lateral decubitus position. ??A procedural pause was performed to verify the patient's name/, site of the injection, and the side of the injection. ?The left shoulder was prepped and draped in the usual sterile fashion. ??After anesthetizing the skin, a 75 mm, 17 gauge needle was introduced left shoulder, under fluoroscopic guidance. ??The first needle made contact at the left suprascapular notch one third of the way down the joint to capture suprascapular sensory nerve. ??After aspiration was negative, motor stimulation at 2 Hz was done with no motor twitching. ??Thereafter 1 cc of 2% lidocaine was injected. ??This was the sensory portion of the suprascapular nerve. ??Thereafter radiofrequency ablation was done with the cooled radiofrequency ablation at 60 degrees but did reach temperatures of 80 degrees. ??This was done for 2 minutes and 30 seconds. ??The needle was then maneuvered slightly caudad where motor stimulation was again done at 2 Hz with no motor twitching. ??Radiofrequency ablation 2 minutes and 30 seconds in the same fashion was done again. ??The needle is removed using 1 cc of 0.25% bupivacaine. ??Thereafter the skin was anesthetized over the humeral head of the greater tubercle. ??This was a sensory portion of the axillary nerve. With fluoroscopic guidance the needle was placed at this area. ??Motor stimulation was again done. ??There was motor twitching and the needle was moved and tested again with no moderate twitch. ??1 cc of 2% lidocaine was injected and after 2 minutes radiofrequency ablation at 80 degrees was done for 2 minutes and 30 seconds. ??Subsequently the needle was moved more caudad in orientation motor stimulation at 2 Hz again was done without motor twitch. ??2% lidocaine of 1 cc was injected. ?? After 2 minutes of waiting radiofrequency ablation again was done at same temperature and time. ??Subsequently ??the coracoid process was found using fluoroscopic guidance. ??The skin over the coracoid process was anesthetized and the needle was moved down to the midpoint of the coracoid process. ??A 17-gauge needle was placed in the midpoint of the coracoid process. ??This is sensory portion of the lateral pectoral nuclear sensory nerve. ??Motor stimulation was again tested with no motor twitch. ??2 cc of lidocaine was injected. ??Radiofrequency ablation was again done for 2 minutes and 30 seconds with temperatures reaching 80 degrees. ??1 cc of 0.25% bupivacaine was then injected as the needle was removed. ?? Patient tolerated the procedure well. Patient will follow up with Dr. Goody in 6 weeks. Juancarlos Godoy DO IMG PAIN MANAGEMEN T ORDERABLES from Last 3 Months Care Teams Expressive Music Therapist Relationship Specialty Start Date End Date Natalia Everett DO [address] [place] [address] PCP - General Family Practice 02/19/24
--- OUTSIDE RECORDS SUMMARY | 2024-04-20 05:41 | XMS_ITS | Encounter Summary ---
Author Organization [place] Address [address] [facility] [place] [address] Care Team Providers Care Defect Cutter Name Role Phone Natalia Everett DO Primary Care Provider [phone] Encounter Details Date Type Department Care Team (Latest Contact Info) Description 02/19/2024 Travel Social History Tobacco Use Types Packs/Day Years Used Date Smoking Tobacco: Never Smokeless Tobacco: Never Adolescent Education Answer Date Record ed Getting School Help Needed Not on file 11/23 Sex and Gender Information Value Date Recorded Sex Assigned at Female 11/23/2023 2:16 PM RESEARCH DEVELOPMENT MANAGER Gender Identity Not on file Sexual Orientation Not on file documented as of this encounter Plan of Treatment Not on file documented as of this encounter Visit Diagnoses Not on filedocumented in this encounter Care Teams Defect Cutter Relationship Specialty Start Date End Date Natalia Everett DO [address] [place] [address] PCP - General Family Practice 02/19/24 documented as of this encounter
--- OUTSIDE RECORDS SUMMARY | 2024-04-20 05:41 | XMS_ITS | Encounter Summary ---
Author Organization [place] Address [address] [facility] [place] [address] Care Team Providers Care Watch Manufacturing Supervisor Name Role Phone Natalia Everett DO Primary Care Provider [phone] Encounter Details Date Type Department Care Team (Latest Contact Info) Description 04/12/2024 Travel Social History Tobacco Use Types Packs/Day Years Used Date Smoking Tobacco: Never Smokeless Tobacco: Never PHQ-2 Answer Date Recorded PHQ-2 Score 0 04/10/2024 Adolescent Education Answer Date Record ed Getting School Help Needed Not on file 11/23 Sex and Gender Information Value Date Recorded Sex Assigned at Female 11/23/2023 2:16 PM PLASMA PROCESSING 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
--- OUTSIDE RECORDS SUMMARY | 2024-04-20 05:41 | XMS_ITS | Encounter Summary ---
Author Organization [place] Address [address] [place] [address]. [place] [address] Care Team Providers Care Oversize Load Pilot Escort Name Role Phone Unavailable Primary Care Provider Unavailabl e Reason for Visit * Reason Onset Date Comments Appointment 01/26/2024 Encounter Details Date Type Department Care Team (Late st Contact Info) Description 01/26/2024 Telephone [facility] [address] [place] [phone] Juancarlos Godoy DO [address] [place] [id number] Appointment Social History Tobacco Use Types Packs/Day Years Used Date Smoking Tobacco: Never Smokeless Tobacco: Never Adolescent Education Answer Date Record ed Getting School Help Needed Not on file 11/23 Sex and Gender Information Value Date Recorded Sex Assigned at Female 11/23/2023 2:16 PM TEACHING SPECIALISTS Gender Identity Not on file Sexual Orientation Not on file documented as of this encounter Miscellaneous Notes * Telephone Encounter - Cece Miramontes RN - 01/26/2024 11:39 AM CDT Chart reviewed. Phone call was placed yesterday by schedulers at [facility]. Phone call to patientto discuss. Transferred patient to the operations scheduler. * Telephone Encounter - Marisol Elvira - 01/26/2024 11:19 AM CDT Other: pt is calling for Dr. Godoy or his nurse to report that she has not heard back from thehospital yet. Could we send this information to you in ePrep or would you prefer to receive a phone call?: Patient would prefer a phone call Okay to leave a detailed message?: No at Cell number on file: Telephone Information: documented in this encounter Plan of Treatment Not on file documented as of this encounter Visit Diagnoses Not on filedocumented in this encounter
--- OUTSIDE RECORDS SUMMARY | 2024-04-20 05:41 | XMS_ITS | Referral Summary ---
Author Organization [place] Address [address] [facility] [place] [address] Care Team Providers Care Station Supervisor Name Role Phone Marguerite Nataliawilliam Aguilar DO Primary Care Provider [phone] Encounters Date Type Department Care Team Description 04/12/2024 Travel 04/12/2024 9:40 AM CDT Radiology Injection Office Visit [facility]ine and Neurosurgery [address] [place] [address] [address] [place] [address] Juancarlos Godoy DO Biceps tendinopathy, left; Other synovitis and tenosynovitis, left upper arm 04/10/2024 Travel 04/10/2024 2:20 PM CDT Office Visit [facility] [address] [place] [address] [address] [place] [address] Juancarlos Godoy DO Biceps tendinopathy, left (Primary Dx); Primary osteoarthritis of left shoulder; Chronic left shoulder pain; Other synovitis and tenosynovitis, left upper arm 02/19/2024 Travel 02/19/2024 9:00 AM CDT Radiology Injection Office Visit [facility] [address] [place] [phone] Juancarlos Godoy DO Osteoarthritis of shoulder region (Primary Dx) 01/26/2024 Telephone [facility] [address] [place] [address] [address] [place] [address] Juancarlos Godoy DO Appointment from Last 3 Months Allergies Active Allergy Reactions Criticality Noted Date [...] previous episodes (2008, 2009); no anticoagulation. Overview: Director Of Education And Training: Dr. Jevon Shelton ([facility]) Overview: Overview: Director Of Education And Training: Dr. Jevon Shelton ([facility]) Overview: Director Of Education And Training: Dr. 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 Patient will follow up with Dr. Godoy in 6 weeks. Juancarlos Godoy DO IMG PAIN MANAGEMEN T ORDERABLES from Last 3 Months Care Teams Station Supervisor Relationship Specialty Start Date End Date Natalia Everett DO [address] [place] [address] PCP - General Family Practice 02/19/24
--- OUTSIDE RECORDS SUMMARY | 2024-04-20 05:41 | XMS_ITS ---
Author Organization [facility] Address [address] [place] [address] Care Team Providers Care Security Threat Analyst Name Role Phone Unavailable Unavailable Unavailable Surgery Details Not on file Complications Check Surgery Details section. Procedure Estimated Blood Loss Check Surgery Details section. Procedure Findings Check Surgery Details section. Procedure Specimens Taken Check Surgery Details section.
--- OUTSIDE RECORDS SUMMARY | 2024-04-20 05:41 | XMS_ITS | Encounter Summary ---
Author Organization [facility] Address [address] [place] [address]. [place] [address] Care Team Providers Care Die Hardener Name Role Phone Unavailable Primary Care Provider Unavailabl e Reason for Referral * Clinically Administered Medications (Routine) - Authorized Specialty Diagnoses / Procedures Referred By Oscar gloria Referred To Contact Physical Medicine and Rehab Diagnoses unknown Procedures iohexol Juancarlos Goody DO [address] [place] [id number] [facility] [address] [place] [phone] Referral ID Status Reason Start Date Expiration Date V isits Requested Visits Authorized [id number] Authorized 01/11/2024 01/10/2025 1 1 Reason for Visit * Reason Comments Injections * Physical Medicine (Routine) - Closed Specialty Diagnoses / Procedures Referred By Oscar gloria Referred To Contact Pain Medicine / Physical Medicine and Rehab Diagnoses Arthritis of left glenohumeral joint Chronic left shoulder pain Left shoulder sensory nerve blocks. Procedures PAIN SHOULDER BLOCK LEFT SPINE W ARIES 40 [place] [address] [place] [id number] Juancarlos Godoy DO [address] [place] [id number] Referral ID Status Reason Start Date Expiration Date Visits Re quested Visits Authorized [id number] Closed 12/22/2023 12/21/2024 1 1 Encounter Details Date Type Department Care Team (Late st Contact Info) Description 01/11/2024 2:40 PM CDT Radiology Injection Office Visit [facility] [address] [phone] Juancarlos Godoy DO [address] [place], [place] [address] Arthritis of left glenohumeral joint; Chronic left shoulder pain Social History Tobacco Use Types Packs/Day Years Used Date Smoking Tobacco: Never Smokeless Tobacco: Never Adolescent Education Answer Date Record ed Getting School Help Needed Not on file 11/23 Sex and Gender Information Value Date Recorded Sex Assigned at Female 11/23/2023 2:16 PM COSTUME TECHNICIAN Gender Identity Not on file Sexual Orientation Not on file documented as of this encounter Last Filed Vital Signs Vital Sign Reading Time Taken Comments Blood Pressure 124/62 01/11/2024 3:34 PM CDT Pulse 60 01/11/2024 3:34 PM CDT Temperature 36.7 ??C (98 ??F) 01/11/2024 2:39 PM CDT Respiratory Rate 14 01/11/2024 2:58 PM CDT Oxygen Saturation 98% 01/11/2024 3:34 PM CDT Inhaled Oxygen Concentration - - Weight - - Height - - Body Mass Index - - documented in this encounter Patient Instructions * Patient Instructions* Doreen Baugh RN - 01/11/2024 2:40 PM CDT DISCHARGE INSTRUCTIONS During office hours (8:00 a.m.- 4:00 p.m.) questions or concerns may be answered by calling Spine Center Navigation Nurses at [phone]. Messages received after hours will be returned the following business day. In the case of an emergency, please dial 911 or seek assistance at the nearest Emergency Room/Urgent Care facility. All Patients: You may experience an increase in your symptoms for the first 2 days, once the numbing medication wears off. You may resume your regular medication, no pain medication until you have completed your diary You may shower. No swimming, tub bath or hot tub for 24 hours; remove bandage after 4 hours Continue your activities that can cause you pain to test the blocks. You should not drive for the next 3 to 5 hours (have someone drive you) POSSIBLE PROCEDURE SIDE EFFECTS -Call Spine Center if concerned- Increased Pain Increased numbness/tingling Nausea/Vomiting Bruising/bleeding at site (hematoma) Swelling at site (edema) Headache Difficulty walking Infection Fever greater than 100.5 documented in this encounter Plan of Treatment Not on file documented as of this encounter Procedures Procedure Name Priority Date/Time Associated Diagnosis Comments PAIN SHOULDER BLOCK LEFT Routine 01/11/2024 2:57 PM CDT Arthritis of left glenohumeral joint Chronic left shoulder pain documented in this encounter Results * PAIN Shoulder Block Left (01/11/2024 2:57 PM CDT) Anatomical Region Laterality Modality PAIN/SPINE Radio Fluoroscop y Narrative 01/11/2024 3:55 PM CDT Left shoulder joint block of suprascapular, axillary, and lateral pectoral articular sensory nerves WITH FLUOROSCOPIC GUIDANCE Performed on: 01/11/2024 Pre-Procedure Diagnosis: Shoulder pain, Osteoarthritis Post-Procedure Diagnosis: ??Same Procedure Performed: Left shoulder joint block of suprascapular, axillary, lateral pectoral articular sensory nerves with Fluoroscopic Guidance Clinical Scenario: ??As per office notes Anesthesia/Fluids: ??As per intra-procedure documentation Vital Signs: ??As per intra-procedure documentation Side Injection: ??Left CC: Apple Ko is a 81 year-old female who presents today for a left shoulder joint block injection as ordered by Dr. Godoy. ??The patient [...] sterile fashion. ??After anesthetizing the skin, a 3.5, 25 gauge needle was introduced left shoulder, under fluoroscopic guidance. ??The first needle made contact at the left suprascapular notch one third of the way down the joint. ??After aspiration was negative, 0.1 ml of Omnipaque-300 was slowly injected to verify placement. ??Good flow was seen around the area without vasculature. ??Subsequently, 0.5 mL of 0.5% bupivacaine slowly injected needle was withdrawn. ??Thereafter the skin was anesthetized over the humeral head of the greater tubercle. ??With fluoroscopic guidance the needle was placed at this area. ??Omnipaque 300 was slowly injected to verify placement. ?? Subsequently, 0.5 mL of 0.5% bupivacaine was slowly injected and the needle was withdrawn. ??Subsequently the patient was placed in the supine position and the coracoid process was found using fluoroscopic guidance. ??The skin over the coracoid process was anesthetized and the needle was moved down to the midpoint of the coracoid process. ??Again Omnipaque 300 was slowly injected to verify placement. ??Subsequently, 0.5 mL of 0.5% bupivacaine was slowly injected and then the needle was withdrawn. Pre-procedure pain score: 6/10 Post-procedure pain score: 3/10 The patient tolerated the procedure well. ??After a short period of observation the patient was discharged. ??The patient was instructed to call if there are any questions or concerns after the procedure. ?? Patient was given a pain diary and will send this in. ??Based on these results we will determine next steps. Juancarlos PATEL PAIN MANAGEMEN T ORDERABLES documented in this encounter Visit Diagnoses Diagnosis Arthritis of left glenohumeral joint Chronic left shoulder pain Pain in joint, shoulder region documented in this encounter Administered Medications Inactive Administered Medications - up to 3 most recent administrations Medication Order MAR Action Action Date Dose Rate Site BUPivacaine (MARCAINE) 0.5% preservative free injection ONCE PRN, Starting on Angie 01/11/24 at 1502, Anesthesia Intra-op $Given 01/11/2024 3:02 PM CDT 1.5 mLs Left Shoulder iohexol (OMNIPAQUE) 300 mg/mL injection ONCE PRN, Starting on Angie 01/11/24 at 1501, Anesthesia Intra-op $Given 01/11/2024 3:01 PM CDT 0.3 mLs Left Shoulder lidocaine (PF) (XYLOCAINE) 1 % injection ONCE PRN, Starting on Angie 01/11/24 at 1503, Anesthesia Intra-op $Given 01/11/2024 3:03 PM CDT 3 mLs Left Shoulder documented in this encounter
--- OUTSIDE RECORDS SUMMARY | 2024-04-20 05:41 | XMS_ITS | Encounter Summary ---
Author Organization [facility] Address [address] [facility] 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
--- OUTSIDE RECORDS SUMMARY | 2024-04-20 05:41 | XMS_ITS | Clinical Summary ---
Author Organization [facility] Address [address] [place] [address] Care Team Providers Care Accounting Professor Name Role Phone Elsewhere, Pcp Primary Care Provider Unavailabl e Source Comments Patient records contain information from all sites at [facility]. For routine questions regarding patient records, call [phone] during business hours, M-F 8:00 AM - 5:00 PM Central Time. Record requests for emergency care only can be directed to [phone] at any time.[facility] Allergies Active Allergy Reactions Criticality Noted Date Comments Penicillins Rash Low 03/25/2022 Sulfa (Sulfonamide Antibiotics) Rash Low 03/03 Medications Medication Sig Dispensed Refills Start Date End Date Status atorvastatin (LIPITOR) 20 mg tablet Take 20 mg by mouth at bedtime. 10/05/2022 Active levothyroxine (SYNTHROID, LEVOTHROID) 25 mcg tablet Take 25 mcg by mouth daily. 10/15/2022 Active metoprolol succinate (TOPROL-XL) 25 mg 24 hr tablet Take 25 mg by mouth daily. 09/10/2022 Active mirtazapine (REMERON) 15 mg tablet Take 15 mg by mouth at bedtime. 10/05/2022 Active multivitamin tablet Take 1 tablet by mouth daily. 09/16/2022 Active docusate sodium (COLACE) 100 mg capsule Take 100 mg by mouth as needed. 05/27/2022 Active cholecalciferol (VITAMIN D3) 25 mcg (1,000 Unit) capsule Take 1,000 Units by mouth daily. 09/16/2022 Active acetaminophen (TYLENOL) 500 mg tablet Take 2 tablets by mouth as needed for pain or fever. 05/27/2022 Active aspirin 81 mg chewable tablet Chew 81 mg daily. 05/27/2022 Ac tive lisinopriL (PRINIVIL,ZESTRIL) 10 mg tablet Take 10 mg by mouth daily. 01/27/2023 Active calcium carbonate (CALCIUM 500 ORAL) Take 1,200 mg by mouth daily. Active oxyCODONE (ROXICODONE) 5 mg immediate release tabletIndications:Chr onic Pain/Nonacute Pain Take 0.5 tablets (2.5 mg total) by mouth daily as needed for pain Indication: Chronic Pain/Nonacute Pain. 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 More than 4 times per year 12/26/2022 Do you belong to any clubs o r organizations such as latter-day groups, unions, fraternal or athletic groups, or [...] and heating? Not hard at all 12/26/2022 [facility] - Occupational Stress [...] Sex Assigned at Female 11/29/2022 8:21 PM STAFF RESEARCH SCIENTIST Gender Identity Female 11/29/2022 8:21 PM STAFF RESEARCH SCIENTIST Sexual Orientation Straight 11/29/2022 8: 21 PM STAFF RESEARCH SCIENTIST Last Filed Vital Signs Vital Sign Reading Time Taken Comments Blood Pressure 137/54 12/30/2022 9:06 AM CDT Pulse 52 12/30/2022 9:06 AM CDT Temperature - - Respiratory Rate - - Oxygen Saturation - - Inhaled Oxygen Concentration - - Weight 45.5 kg (100 lb 3.2 oz) 12/01/2022 3:23 P M STAFF RESEARCH SCIENTIST Height 151.9 cm (4' 11.8) 12/01/2022 3:23 PM CS T Body Mass Index 19.7 12/01/2022 3:23 PM STAFF RESEARCH SCIENTIST Plan of Treatment Health Maintenance Due Date Last Done Comments Sodium Level 05/27/2023 05/27/2022 Thyroid Stimulating Hormone (TSH) test for thyroid function 05/27/2023 05/27/2022 Creatinine Level (Kidney Fun ction Test) 07/13/2023 07/13/2022, 05/27/2022 Potassium Level 09/16/2023 09/16/2022, 05/27/2022 Depression Screening (Annual PHQ-2) 10/02/2023 Fall Risk Screen (Annual) 10/02/2023 COVID-19 Vaccine (2022-2 4 season) 2023 07/13/2023, 07/06/2022, 01/20/2022, Additional history exists Office Visit for Blood Press ure Check / Re-check 12/31/2023 12/30/2022 Influenza Vaccine (#1) 2024 , 07/07/2022, 07/02/2021, Additional history exists DTaP,Tdap,and Td Vaccines (3 - Td or Tdap) 12/31/2032 12/31/2022, 07/02/2013 Pneumococcal vaccine (65+ years) Completed 11/28/19, 05/17/2011 Zoster Vaccines Completed 02/19/2022, 12/07/2021 Care Teams Accounting Professor Relationship Specialty Start Date End Date Elsewhere, Pcp PCP - General Internal Medicine 12/30/22
--- OUTSIDE RECORDS SUMMARY | 2024-04-20 05:41 | XMS_ITS | Encounter Summary ---
Author Organization [facility] Address [address] [facility] [place] [address] Care Team Providers Care Grades 6 Through 8 Teacher Name Role Phone Natalia Everett DO Primary Care Provider [phone] Encounter Details Date Type Department Care Team (Late st Contact Info) Description 01/19/2024 Telephone [facility] [address] [place] [id number] Lor Cooney, RN Social History Tobacco Use Types Packs/Day Years Used Date Smoking Tobacco: Never Smokeless Tobacco: Never Adolescent Education Answer Date Record ed Getting School Help Needed Not on file 11/23 Sex and Gender Information Value Date Recorded Sex Assigned at Female 11/23/2023 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 Godoy recommendation to move forward with shoulder ablation. Order placed. * Telephone Encounter - Lor Cooney RN - 01/19/2024 3:32 PM CDT ----- Message from Juancarlos Godoy DO sent at 01/18/2024 9:53 AM CDT ----- Regarding: RE: Left Shoulder Sensory Nerve Blocks I recommend that we move forward with left shoulder sensory nerve radiofrequency ablation. Please have her approved and then scheduled. ----- Message ----- From: Lor Cooney RN Sent: 01/18/2024 9:43 AM CDT To: Juancarlos Godoy DO; # Subject: FW: Left Shoulder Sensory Nerve Blocks Pain diary is in. Please review and advise. Thanks! Lor ----- Message ----- From: Doreen Baugh RN Sent: 01/11/2024 3:05 PM CDT To: [facility] Procedure Support Pool Subject: Left Shoulder Sensory Nerve Blocks Patient here today, 01/11/2024 for left shoulder sensory nerve blocks with Dr. Godoy as orderedby Dr. Godoy. Awaiting pain diary at this time. documented in this encounter Plan of Treatment Scheduled Orders Name Type Priority Associated Diagnoses Orde r Schedule PAIN US Large Joint Injection Unilateral Imaging Routine Osteoarthritis of shoulder region Expected: 01/19/2024 (Approximate), Expires: 01/18/2025 documented as of this encounter Results * PAIN Radiofreq Ablation Shoulder Left (02/19/2024 [...] Godoy DO IMG PAIN MANAGEMEN T ORDERABLES documented in this encounter Visit Diagnoses Diagnosis Osteoarthritis of shoulder region- Primary Osteoarthrosis, unspecified whether generalized or localized, shoulder region Osteoarthritis of shoulder region- Primary Osteoarthrosis, unspecified whether generalized or localized, shoulder region documented in this encounter Care Teams Grades 6 Through 8 Teacher Relationship Specialty Start Date End Date Natalia Everett DO [address] [place] [address] PCP - General Family Practice 02/19/24 documented as of this encounter
--- OUTSIDE RECORDS SUMMARY | 2024-04-20 05:41 | XMS_ITS | Referral Summary ---
Author Organization [facility] Address [address] [place] [address] Care Team Providers Care Ornamental Metal Erector Name Role Phone Elsewhere, Pcp Primary Care Provider Unavailabl e Source Comments Patient records contain information from all sites at [facility]. For routine questions regarding patient records, call [phone] during business hours, M-F 8:00 AM - 5:00 PM Central Time. Record requests for emergency care only can be directed to [phone] at any time.[facility] Allergies Active Allergy Reactions Criticality Noted [...] Of Aortocoronary Bypass Graft Overview (12/01/2022): In 1983 Social History Tobacco Use Types [...] often do you attend chur ch or yazdanism services? More than 4 times per year 12/26/2022 Do you belong to any clubs o r organizations such as rastafari groups, unions, fraternal or athletic groups, or [...] and heating? Not hard at all 12/26/2022 [facility] - Occupational [...] place to sleep or slept in a [facility]p (including now)? No 12/26/2022 Nutrition Answer Date [...] Sex Assigned at Female 11/29/2022 8:21 PM STAND UP FORKLIFT OPERATOR Gender Identity Female 11/29/2022 8:21 PM STAND UP FORKLIFT OPERATOR Sexual Orientation Straight 11/29/2022 8: 21 PM STAND UP FORKLIFT OPERATOR Last Filed Vital Signs Vital Sign Reading Time Taken Comments Blood Pressure 137/54 12/30/2022 9:06 AM CDT Pulse 52 12/30/2022 9:06 AM CDT Temperature - - Respiratory Rate - - Oxygen Saturation - - Inhaled Oxygen Concentration - - Weight 45.5 kg (100 lb 3.2 oz) 12/01/2022 3:23 P M STAND UP FORKLIFT OPERATOR Height 151.9 cm (4' 11.8) 12/01/2022 3:23 PM CS T Body Mass Index 19.7 12/01/2022 3:23 PM STAND UP FORKLIFT OPERATOR Plan of Treatment Not on file Care Teams Ornamental Metal Erector Relationship Specialty Start Date End Date Elsewhere, Pcp PCP - General Internal Medicine 12/30/22
--- OUTSIDE RECORDS SUMMARY | 2024-04-20 05:41 | XMS_ITS | Encounter Summary ---
Author Organization [facility] Address [address] [place] [address]. [place] [address] Care Team Providers Care Almond Blancher Operator Name Role Phone Natalia Everett Primary Care Provider [phone] Reason for Visit * Reason Comments Injections * Physical Medicine (Routine) - Closed Specialty Diagnoses / Procedures Referred By Oscar t Referred To Contact Pain Medicine / Physical Medicine and Rehab Diagnoses Biceps tendinopathy, left Other synovitis and tenosynovitis, left upper arm Left biceps tendon sheath injection under ultrasound guidance Procedures PAIN US TENDON SHEATH INJECTION SPINE US [address] [place] [address] [place] [address] Juancarlos Godoy DO [address] [place] [id number] Referral ID Status Reason Start Date Expiration Date Visits Re quested Visits Authorized [id number] Closed 04/12/2024 04/12/2025 1 1 Encounter Details Date Type Department Care Team (Late st Contact Info) Description 04/12/2024 9:40 AM CDT Radiology Injection Office Visit [facility] [address] [place] [address] [address] [place] [address] Juancarlos Godoy DO [address] [place] [phone] Biceps tendinopathy, left; Other synovitis and tenosynovitis, left upper arm Social History Tobacco Use Types Packs/Day Years Used Date Smoking Tobacco: Never Smokeless Tobacco: Never Tobacco Cessation:Counseling Given: Not Answered PHQ-2 Answer Date Recorded PHQ-2 Score 0 04/10/2024 Adolescent Education Answer Date Record ed Getting School Help Needed Not on file 11/23 Sex and Gender Information Value Date Recorded Sex Assigned at Female 11/23/2023 2:16 PM 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 Gender Identity Not on file Sexual Orientation Not on file documented as of this encounter Last Filed Vital Signs Vital Sign Reading Time Taken Comments Blood Pressure 140/60 04/12/2024 9:29 AM CDT Pulse 62 04/12/2024 9:29 AM CDT Temperature 36.7 ??C (98.1 ??F) 04/12/2024 9:29 AM CD T Respiratory Rate - - Oxygen Saturation 98% 04/12/2024 9:29 AM CDT Inhaled Oxygen Concentration - - Weight 49.9 kg (110 lb) 04/12/2024 9:29 AM CDT Height 153.7 cm (5' 0.5) 04/12/2024 9:29 AM CDT Body Mass Index 21.13 04/12/2024 9:29 AM CDT documented in this encounter Patient Instructions * Patient Instructions* Cece Shannon MA - 04/12/2024 9:40 AM CDT DISCHARGE INSTRUCTIONS During office hours (8:00 a.m.- 4:00 p.m.) questions or concerns may be answered by calling Spine Center Navigation Nurses at [phone]. Messages received after hours will be returned the following business day. In the case of an emergency, please dial 911 or seek assistance at the nearest Emergency Room/Urgent Care facility. All Patients: You may experience an increase in your symptoms for the first 2 days (It may take anywhere between 2 days- 2 weeks for the steroid to have maximum effect). You may use ice on the injection site, as frequently as 20 minutes each hour if needed. You may take your pain medicine. You may continue taking your regular medication after your injection. If you have had a Medial Branch Block you may resume pain medication once your pain diary is completed. You may shower. No swimming, tub bath or hot tub for 48 hours. You may remove your bandaid/bandage as soon as you are home. You may resume light activities, as tolerated. Resume your usual diet as tolerated. If you were told to hold any blood thinning medications you may resume taking them 24 hours after your procedure as prescribed. It is strongly advised that you do not drive for 1-3 hours post injection. If you have had oral sedation: Do not drive for 8 hours post injection. If you have had IV sedation: Do not drive for 24 hours post injection. Do not operate hazardous machinery or make important personal/business decisions for 24 hours. POSSIBLE STEROID SIDE EFFECTS (If steroid/cortisone was used for your procedure) -If you experience these symptoms, it should only last for a short period Swelling of the legs Skin redness (flushing) Mouth (oral) irritation Blood sugar (glucose) levels Sweats Mood changes Headache Sleeplessness Weakened immune system for up to 14 days, which could increase the risk of magali the COVID-19virus and/or experiencing more severe symptoms of the disease, if exposed. Decreased effectiveness of the flu vaccine if given within 2 weeks of the steroid. POSSIBLE PROCEDURE SIDE EFFECTS -Call the Spine Center if you are concerned Increased Pain Increased numbness/tingling Nausea/Vomiting Bruising/bleeding at site Redness or swelling Difficulty walking Weakness Fever greater than 100.5 *In the event of a severe headache after an epidural steroid injection that is relieved by lying down, please call the [facility] to speak with a clinical staff member* documented in this encounter Plan of Treatment Not on file documented as of this encounter Procedures Procedure Name Priority Date/Time Associated Diagnosis Comments PAIN US TENDON SHEATH INJECTION Routine 04/12/2024 9:52 AM CDT Biceps tendinopathy, left Other synovitis and tenosynovitis, left upper arm documented in this encounter Results * PAIN US Tendon Sheath Injection [...] Post pain score: 5/10 Juancarlos Godoy DO IMTayla PAIN MANAGEMEN T ORDERABLES documented in this encounter Visit Diagnoses Diagnosis Biceps tendinopathy, left Other synovitis and tenosynovitis, left upper arm documented in this encounter Administered Medications Inactive Administered Medications - up to 3 most recent administrations Medication Order MAR Action Action Date Dose Rate Site lidocaine (PF) (XYLOCAINE) 1 % injection ONCE PRN, Starting on Mon04/12/24 at 0954, Anesthesia Intra-op $Given 04/12/2024 9:54 AM CDT 1 mL lidocaine (PF) (XYLOCAINE) injection ONCE PRN, Starting on Mon04/12/24 at 0954, Anesthesia Intra-op $Given 04/12/2024 9:54 AM CDT 2.5 mLs triamcinolone (KENALOG-40) injection ONCE PRN, Starting on Mon04/12/24 at 0954, Anesthesia Intra-op $Given 04/12/2024 9:54 AM CDT 20 mg documented in this encounter Care Teams Almond Blancher Operator Relationship Specialty Start Date End Date Natalia Everett DO [address] [place] [address] PCP - General Family Practice 02/19/24 documented as of this encounter
--- OUTSIDE RECORDS SUMMARY | 2024-04-20 05:41 | XMS_ITS | Encounter Summary ---
Author Organization [facility] Address [address] [place] [address]. [place] [address] Care Team Providers Care Raisin Washer Name Role Phone Natalia Everett Lauren ASHRAF Primary Care Provider [phone] Reason for Visit * Reason Comments Shoulder Pain Encounter Details Date Type Department Care Team (Late st Contact Info) Description 04/10/2024 2:20 PM CDT Office Visit [facility] [address] [place] [id number] Juancarlos Godoy DO [address] [place] [id number] Biceps tendinopathy, left (Primary Dx); Primary osteoarthritis [...] Sex Assigned at Female 11/23/2023 2:16 PM TRIAGE ASSISTANT Gender Identity Not on file Sexual Orientation Not on file documented as of this encounter Last Filed Vital Signs Vital Sign Reading Time Taken Comments Blood Pressure 143/66 04/10/2024 2:01 PM CDT Pulse 63 04/10/2024 2:01 PM CDT Temperature - - Respiratory Rate - - Oxygen Saturation - - Inhaled Oxygen Concentration - - Weight 49.9 kg (110 lb) 04/10/2024 2:01 PM CDT Height - - Body Mass Index - - documented in this encounter Patient Instructions * Patient Instructions* Juancarlos Godoy DO - 04/10/2024 2:20 PM CDT [facility] Injection Requirements A personal driver is required for all fluoroscopically-guided injections. Injection appointments may be cancelled if there are signs/symptoms of an active infection or if the patient is being actively treated with antibiotics for a diagnosed infection. Patients may have their steroid injection cancelled if they have had another steroid injection within 2 weeks. Diabetic patients will have their blood glucose levels checked the day of their injection and the appointment will be rescheduled if the blood glucose level is 300 or higher. Patients with allergies to cortisone, local anesthetics, iodine, or contrast dye should contact [facility] to further discuss these considerations. Patients scheduled for medial branch block diagnostic injections should refrain from taking pain medication the day of the procedure. The medial branch block injection appointment will be rescheduledif the patient's pain rating is not 5/10 or greater at the time of the procedure. Patients taking warfarin/Coumadin will have their INR checked the day of the procedure and the procedure may be rescheduled if the INR is greater than 3.0. Please contact the Spine Center (#[phone]) if you are taking any prescription blood-thinning medications (aspirin, warfarin, Plavix, Lovenox, Eliquis, Brilinta, Effient, etc.) as special dosing adjustments may need to be made depending on the type of injection you are scheduled to receive. It is recommended that you delay having your steroid injection if you have received any vaccines within 2 weeks. ~Please call Nurse Navigation line with any questions or concerns about your treatment plan, if symptoms worsen and you would like to be seen urgently, or if you have problems controlling bladder and bowel function. documented in this encounter Progress Notes * Juancarlos Godoy DO - 04/10/2024 2:20 PM CDT Assessment: Diagnoses and all orders for this visit: Biceps tendinopathy, left - PAIN US Tendon Sheath Injection; Future Primary osteoarthritis of left shoulder Chronic left shoulder pain Other synovitis and tenosynovitis, left upper arm - PAIN US Tendon Sheath Injection; Future Ingrid Granger is a 83 year old y.o. female with past medical history significant for chronic low back pain without sciatica, diaphragmatic hernia, glucose intolerance, hyperlipidemia, hypothyroidism, coronary atherosclerosis, hypertension, atrial fibrillation, arthritis of the left glenohumeraljoint, history of basal cell carcinoma, osteopenia, depression, alcohol abuse, history of coronary artery bypass surgery, primary insomnia who presents today for follow-up regarding chronic left shoulder pain: -Unfortunately patient did not receive any relief with her left shoulder sensory nerve radiofrequency ablation. On speeds test she has reproduction of left bicep pain. Pain is likely secondary to left biceps tendinopathy in addition to her pain from her glenohumeral joint arthritis. Plan: A shared decision making plan was used. The patient's values and choices were respected. Prior medical records from our last visit on 12/08/2023 were reviewed today. The following represents what was discussed and decided upon by the provider and the patient. -DIAGNOSTIC TESTS: Images were personally reviewed and interpreted. --X-ray of the left shoulder dated 11/03/2023 report is reviewed and shows severe narrowing of the glenohumeral joint with extensive subchondral sclerotic change along with spurring. Loose bodies are also present. There is osteopenia. There is also decreased humeral acromial distance -INTERVENTIONS: I ordered a left biceps tendon sheath ultrasound-guided injection. -MEDICATIONS: No changes to medications. - Discussed side effects of medications and proper use. Patient verbalized understanding. -PHYSICAL THERAPY: Recommended she continue with home exercises on a consistent basis. -PATIENT EDUCATION: We discussed pain management in a multiple to fashion including physical therapy, medication management, possible future injections. -FOLLOW UP: Patient will follow-up 2 to 4 weeks after injection. Advised to contact clinic if symptoms worsen or change. Subjective: Ingrid Granger is a 83 year old female who presents today for follow-up regarding chronic left shoulder pain. Patient notes that she did not receive any relief with her left shoulder sensory nerveradiofrequency ablation. She has pain when she uses her left arm. Pain is mostly in the biceps area. This happens when she lifts her arm. Pain today is 6/10 its worst is 8/10 Sebesta 0/10. The 0/10 is when she does not move her arm at all. Moving her left arm makes pain worse. She has tried severalmedications in the past including Tylenol, ibuprofen, oxycodone, Voltaren gel, lidocaine patches without relief of her shoulder pain. She is left-handed. She denies any bowel or bladder changes, fevers, chills, unintentional weight loss. She is here with her son who is very helpful in the planning process. No myelopathic symptoms. Treatment to Date: X-ray of left shoulder dated 11/03/2023. 2 ultrasound-guided glenohumeral joint cortisone injections without relief. Left sensory nerves of the shoulder blocks on 01/11/2024. Left sensory nerve radiofrequency ablation of the shoulder on 02/19/2024. Patient Active Problem List Diagnosis Adenomatous colon polyp Alcohol abuse Anemia Arthritis of left glenohumeral joint Chronic bilateral low back pain without sciatica Coronary atherosclerosis Depression Diaphragmatic hernia Glucose intolerance (impaired glucose tolerance) History of actinic keratoses History of basal cell carcinoma History of coronary artery bypass surgery Hyperlipidemia Hypertension Hypothyroidism (acquired) Osteopenia of multiple sites Paroxysmal atrial fibrillation (H) Postablative hypothyroidism Primary insomnia Trichiasis of eyelid Current Outpatient Medications Medication Sig Dispense Refill aspirin (ASA) 81 MG chewable tablet Take 81 mg by mouth atorvastatin (LIPITOR) 20 MG tablet Take 1 tablet by mouth at bedtime B Complex Vitamins (VITAMIN-B COMPLEX) TABS Take 1 tablet by mouth CALCIUM PO 1200mg. Cholecalciferol (D 1000) 25 MCG (1000 UT) CAPS Take 1,000 Units by mouth docusate sodium (DSS) 100 MG capsule Take 100 mg by mouth levothyroxine (SYNTHROID/LEVOTHROID) 25 MCG tablet Take 25 mcg by mouth lisinopril (ZESTRIL) 10 MG tablet Take 1 tablet by mouth daily metoprolol succinate ER (TOPROL XL) 25 MG 24 hr tablet Take 1 tablet by mouth daily mirtazapine (REMERON) 15 MG tablet Take 1 tablet by mouth at bedtime Multiple Vitamin (ONE-A-DAY ESSENTIAL) TABS Take 1 tablet by mouth daily omeprazole (PRILOSEC) [address] capsule Take 40 mg by mouth No current facility-administered medications for this visit. Allergies Allergen Reactions Penicillins Rash Sulfa Antibiotics Rash No past medical history on file. Review of Systems ROS: Specifically negative for bowel/bladder dysfunction, balance changes, headache, dizziness, foot drop, fevers, chills, appetite changes, nausea/vomiting, unexplained weight loss. Otherwise 13 systems reviewed are negative. Please see the patient's intake questionnaire from today for details. Reviewed Social, Family, Past Medical and Past Surgical history with patient, no significant changes noted since prior visit. Objective: BP (!) 143/66 (BP Location: Right arm, Patient Position: Sitting, Cuff Size: Adult Regular) Pulse63 Wt 110 lb (49.9 kg) PHYSICAL EXAMINATION: --CONSTITUTIONAL: Vital signs as above. No acute distress. The patient is well nourished and well groomed. --PSYCHIATRIC: The patient is awake, alert, oriented to person, place, time and answering questionsappropriately with clear speech. Appropriate mood and affect --HEENT: Sclera are non-injected. --SKIN: Skin over the face is clean, dry, intact without rashes. --RESPIRATORY: Normal rhythm and effort. No abnormal accessory muscle breathing patterns noted. --GROSS MOTOR: Easily arises from a seated position. --CERVICAL SPINE: Inspection reveals no evidence of deformity. Range of motion is mildly limited incervical flexion, extension, lateral rotation. No tenderness to palpation cervical spine. --SHOULDERS: Full range of motion in her right upper extremity and shoulder abduction. Severely decreased range of motion in left shoulder abduction with positive speeds test. --UPPER EXTREMITY MOTOR TESTING: Wrist flexion left 5/5, right 5/5 Wrist extension left 5/5, right 5/5 Pronators left 5/5, right 5/5 Biceps left 5/5, right 5/5 Triceps left 5/5, right 5/5 Shoulder abduction left 5/5, right 5/5 Revenue Agent left 5/5, right 5/5 --NEUROLOGIC: Sensation to upper extremities is intact. Imaging of the cervical spine: Shoulder imaging was reviewed today. documented in this encounter Plan of Treatment Not on file documented as of this encounter Results * PAIN US Tendon [...] this encounter Visit Diagnoses Diagnosis Biceps tendinopathy, left- Primary Primary osteoarthritis of left shoulder Primary localized osteoarthrosis, shoulder region Chronic left shoulder pain Pain in joint, shoulder region Other synovitis and tenosynovitis, left upper arm Biceps tendinopathy, left Other synovitis and tenosynovitis, left upper arm documented in this encounter Care Teams Raisin Washer Relationship Specialty Start Date End Date Natalia Everett DO [address] [place] [address] PCP - General Family Practice 02/19/24 documented as of this encounter
--- OUTSIDE RECORDS SUMMARY | 2024-04-20 05:41 | XMS_ITS | Clinical Summary ---
Author Organization [facility] Address [place], [place] [address] Care Team Providers Care Senior Developer Name Role Phone Natalia Everett DO Primary Care Provider [phone] Allergies Active Allergy Reactions Criticality Noted Date [...] Active ondansetron (ZOFRAN ODT) 4 mg disintegrating tabletIndications:Di aphragmatic hernia without obstruction and without gangrene Place 1 Tablet (4 mg) on the tongue every 8 hours if needed for Nausea/Vomiting. 15 Tablet 10/13/2022 Active polyethylene glycoL (MIRALAX) 17 gram/scoop powderIndications:Di aphragmatic hernia without obstruction and without gangrene Mix 1 scoop (17 g) in liquid then take by mouth once daily. Take one dose in water daily until bowels are easy and regular. Then return to your daily Colace. 510 g 10/14/2022 Active atorvastatin (LIPITOR) 20 mg tabletIndications:Mi xed hyperlipidemia Take 1 Tablet (20 mg) by mouth at bedtime. 90 Tablet 3 10/11/2023 Active levothyroxine (SYNTHROID) 25 mcg tabletIndications:Hy pothyroidism (acquired) Take 1 Tablet (25 mcg) by mouth once daily. 90 Tablet 3 10/11/2023 Active mirtazapine (REMERON) 15 mg tabletIndications:In somnia, idiopathic,Poor appetite,Anxiety Take 1 Tablet (15 mg) by mouth at bedtime. 90 Tablet 3 10/11/2023 Active metoprolol succinate (TOPROL XL) 25 mg Sustained-Release tabletIndications:HT N (hypertension) Take 1 Tablet (25 mg) by mouth once daily. 90 Tablet 3 10/11/2023 Active lisinopriL (PRINIVIL; ZESTRIL) 10 mg tabletIndications:HT N (hypertension) Take 1 Tablet (10 mg) by mouth once daily. 90 Tablet 3 10/11/2023 Active omeprazole (PRILOSEC) 40 mg Delayed-Release capsuleIndications:G astroesophageal reflux disease, unspecified whether esophagitis present,Dysphagia, unspecified type Take 1 Capsule (40 mg) by mouth once daily. Take 30-60 minutes before a meal/food once a day. 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 Diaphragmatic hernia without obstruction and without gangrene Immunizations Name Administration Dates Next Due COVID-19 vaccine (Moderna 10 0mcg/0.5mL) PF, MDV 08/03/2021,11/18/2020,10/21/2020 COVID-19 vaccine (Moderna Earnest kelley 50mcg/0.25mL) PF, MDV 01/20/2022 COVID-19 vaccine (Pfizer-Bio NTech 30mcg/0.3mL) 12YO+ BIVALENT PF, MDV 07/06/2022 [...] Comments Blood Pressure 138/64 10/11/2023 2:57 PM SENIOR MARKETING DATA ANALYST Pulse 55 10/11/2023 2:57 PM SENIOR MARKETING DATA ANALYST Temperature 36.6 ??C (97.8 ??F) 11/30/2022 10:[address] Respiratory Rate 16 10/13/2022 9:27 AM SENIOR MARKETING DATA ANALYST Oxygen Saturation 100% 10/11/2023 2:57 PM SENIOR MARKETING DATA ANALYST Inhaled Oxygen Concentration - - Weight 50.4 kg (111 lb 3.2 oz) 10/11/2023 2:57 P M SENIOR MARKETING DATA ANALYST Height 150.2 cm (4' 11.13) 10/11/2023 8:[address] Body Mass Index 22.36 10/11/2023 8:17 AM SENIOR MARKETING DATA ANALYST Plan of Treatment Health Maintenance Due Date Last Done Comments COVID-19 vaccine series ( season) 2023 07/13/2023, 07/06/2022, 01/20/2022, Additional history exists Influenza for age 65+ 06/02/2024 06/28/2023 , 07/07/2022, 07/02/2021, Additional history exists BMI (ht and wt on same day) for age 18+ 10/11/2024 10/11/2023, 11/30/2022, 10/25/2022, Additional history exists Medicare Wellness for age 65+ 10/11/2024 10/11/2023, 07/06/2022 Depression screening for age 12+ 10/13/2024 10/13/2023, 10/11/2023, 10/11/2023, Additional history exists Tetanus booster 12/31/2032 12/31/2022, 07/02/2013 Pneumococcal series for age 65+ Completed 5, 05/17/2011 Zoster (shingles) series for age 50+ Completed 02/19/2022, 12/07/2021 Tdap Completed 12/31/2022, 07/02/2013 DEXA/DXA scan for age 65+ Completed 04/03/2023 Procedures Procedure Name Priority Date/Time Associated Diagnosis Comments XR DXA BONE DENSITY 2 SITES AXIAL Routine 04/03/2023 10:03 AM CDT Postmenopausal from Last 3 Months or Most Recently Relevant to Health Maintenance Results * (ABNORMAL) XR DXA BONE DENSITY 2 SITES AXIAL [66023.1] (04/03/2023 10:03 AM CDT) Anatomical Region Laterality Modality Spine, HIPS, HIPL, HIPR Other Impressions 04/06/2023 1:06 PM CDT Osteopenia. RECOMMENDATIONS: The National Osteoporosis Foundation recommends pharmacologic treatment for patients with T-scores of -2.5 or less, patients with prior history of fragility fractures, or patients with 10-year probability of greater than 3% at hips or greater than 20% of suffering major osteoporotic fractures. Recommend continued optimization of calcium and vitamin D intake through dietary means and/or supplementation and regular exercise. Repeat scan recommended in 3-5 years. Thais Barker PA-C [facility] 04/06/2023 Narrative 04/06/2023 1:06 PM CDT For Patients: Results are automatically released to your [email or web address] account once available, in compliance with federal regulations. This means that you may see your results before your provider has had a chance to review them. Please allow 2-3 business days for your provider to comment on the results. XR DXA Bone Mineral Density (BMD) EXAM LOCATION: [address] [address] PATIENT NAME: Ingrid Granger DATE OF : 1940 EXAM DATE: 04/03/2023 REQUESTING PROVIDER: Natalia Everett, DO GENDER AT : female HEIGHT: 4' 11.09 (11/30/2022) WEIGHT: ??98 lb 9.6 oz (11/30/2022) MENOPAUSAL STATUS: Postmenopausal RACE/ETHNICITY: White RISK FACTORS: Smoking (prior), Weight < 127 lbs., and White Race CURRENT MEDICATION FOR BONE LOSS: NONE INDICATION: Post-Menopause COMPARISON DATE(S): None DXA scans are compared to prior studies for a patient only when the two (or more) studies were performed on the same scanner. It is not possible to compare data generated on one scanner to data from another because there are not standards in DXA equipment. This applies even if the two scanners are made by the same horticulture professor. PROCEDURE: Dual-energy x-ray absorptiometry performed with routine technique. Reporting is completed in the form of a T-score. The T-score represents the standard deviation from peak bone mass based on young healthy adult. A Z-score is used for diagnosis in premenopausal women, and for men under the age of 50. FINDINGS: RESULT LUMBAR SPINE L1 - L4 BMD: 1.162 g/cm2 T-Score: - 0.3 Z-Score: + 2.3 Change from prior: ??None RESULTS FEMUR Left femoral neck BMD: 0.749 g/cm2 T-Score: - 2.1 Z-Score: + 0.7 Change from prior: ??None Right femoral neck BMD: 0.739 g/cm2 T-Score: - 2.2 Z-Score: + 0.6 Change from prior: ??None Left hip BMD: 0.748 g/cm2 T-Score: - 2.1 Z-Score: + 0.7 Change from prior: ??None Right hip BMD: 0.764 g/cm2 T-Score: - 1.9 Z-Score: + 0.8 Change from prior: ??None WHO criteria: Normal: T-score at or above -1 SD Osteopenia: T-score between -1.1 and -2.4 SD Osteoporosis: T-score at or below -2.5 SD FRAX RISK CALCULATION (USED FOR OSTEOPENIA ONLY): 10-year probability of major osteoporotic fracture: 14.0%. 10-year probability of hip fracture: 4.8%. Natalia Everett DO DEXA from Last 3 Months or Most Recently Relevant to Health Maintenance Advance Directives Documents on File Type Date Recorded Patient Psychological Assistant Expl anation Healthcare Directive 02/12/2022 022 * Full Code (Latest Code Status on File) Date Activated Date Inactivated Comments 10/13/2022 6:54 AM 10/13/2022 2:54 PM Question Answer Comments Code Status Discussion: Reviewed Preferences * Full Code Date Activated Date Inactivated Comments 10/12/2022 11:07 AM 10/13/2022 6:54 AM Question Answer Comments Code Status Discussion: Unable to Assess Preferences, Provider to review later * Full Code Date Activated Date Inactivated Comments 09/23/2022 11:40 AM 09/23/2022 3:01 PM Question Answer Comments Code Status Discussion: Reviewed Preferences Care Teams Senior Developer Relationship Specialty Start Date End Date Natalia Everett [place] [address] PCP - General Family Practice 04/05/22
--- OUTSIDE RECORDS SUMMARY | 2024-04-20 05:41 | XMS_ITS | Encounter Summary ---
Author Organization [facility] Address [address] [place] [address]. [place] [address] Care Team Providers Care Web Marketing Coordinator Name Role Phone MargueriteNatalia Lauren ASHRAF Primary Care Provider [phone] Reason for Visit * Reason Comments Pain * Therapeutic Procedure Only (Routine) - Closed Specialty Diagnoses / Procedures Referred By Contac t Referred To Contact Pain Medicine / Pain & Palliative Care Diagnoses Osteoarthritis of shoulder region Radiofreq Ablation Shoulder Left - Rep Rena Navarro Confirmed time and date Procedures PAIN RADIOFREQUENCY ABLATION SHOULDER LEFT PAIN US LARGE JOINT INJECTION UNILATERAL PAIN [place] [address] [place] [address] [place] [id number] Juancarlos Godoy DO [address] [place] [id number] Referral ID Status Reason Start Date Expiration Date Visits Re quested Visits Authorized [id number] Closed 02/19/2024 02/18/2025 1 1 Encounter Details Date Type Department Care Team (Late st Contact Info) Description 02/19/2024 9:00 AM CDT Radiology Injection Office Visit [facility] [address] [place] [address] Juancarlos Godoy DO [address] [place] [phone] Osteoarthritis of shoulder region (Primary Dx) Social History Tobacco Use Types Packs/Day Years Used Date Smoking Tobacco: Never Smokeless Tobacco: Never Adolescent Education Answer Date Record ed Getting School Help Needed Not on file 11/23 Sex and Gender Information Value Date Recorded Sex Assigned at Female 11/23/2023 2:16 PM [employer] Gender Identity Not on file Sexual Orientation Not on file documented as of this encounter Last Filed Vital Signs Vital Sign Reading Time Taken Comments Blood Pressure 140/63 02/19/2024 9:50 AM CDT Pulse 58 02/19/2024 9:50 AM CDT Temperature - - Respiratory Rate - - Oxygen Saturation 98% 02/19/2024 9:50 AM CDT Inhaled Oxygen Concentration - - Weight - - Height - - Body Mass Index - - documented in this encounter Patient Instructions * Patient Instructions* Lizet Garcia RN - 02/19/2024 9:00 AM CDT [facility] COOLIEF RADIOFREQUENCY During office hours (8:00 am - 4:00 pm) questions or concerns may be answered by calling [facility] Center Navigation Nurses at [phone]. Messages received after hours will be returned the following business day. All patients: You may experience an increase in your symptoms for the first 5 - 7 days. Soreness may persist the first 3 weeks as it takes 4-6 weeks for the nerves to fully heal. You may use ice on the injections site, as frequently as 20 minutes each hour if needed. You may take your pain medicine You may continue taking your regular medication You may shower. No swimming, hot tub or tub bath for 48 hours. You may remove your bandage/ bandaid as soon as you are home You may resume light activities as tolerated Resume your usual diet as tolerated It is strongly advised you do not drive for 1-3 hours post injection If you had any oral sedation do not drive for 8 hours post injection Possible side effects: call the Sp[facility] Center if you are concerned Bruising bleeding at injection sites Increased numbness Redness or swelling Weakness FOLLOW UP VISIT WITH DR. GODOY AT THE [facility] IN 4 WEEKS. 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 For SCS Trial, RFA's or any sedation procedure: Have you been fasting? NA If yes, for how long? na Are you taking any any blood thinners such as Coumadin, Warfarin, Jantoven, Pradaxa Xarelto, Eliquis, Edoxaban, Enoxaparin, Lovenox, Heparin, Arixtra, Fondaparinux, or Fragmin? OR Antiplatelet medication such as Plavix, Brilinta, or Effient? No If yes, when did you take your last dose? na Do you take aspirin? Yes - ASA If cervical procedure, have you held aspirin for 6 days? NA Do you have any allergies to contrast dye, iodine, steroid and/or numbing medications? NO Are you currently taking antibiotics or have an active infection? NO Have you had a fever/elevated temperature within the past week? NO Are you currently taking oral steroids? NO Have you had any vaccinations in the past seven days? 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 NO Have you received the COVID-19 vaccine? Yes If yes, was it your 1st, 2nd or only dose needed? 4 Date of most recent vaccine: 07.13.2023 Notify provider and RNs if systolic BP >170, diastolic BP >100, P >100 or O2 sats < 90% documented in this encounter Nursing Notes * Alyssa Thomas, RN - 02/19/2024 9:00 AM CDT Coolief RFA to 3 nerves of the left shoulder Grounding pad at the left upper back [facility] kit: [id number] Expires: 04-12-2025 Medications: Lidocaine 1% Lidocaine 2% Bupivacaine 0.25% documented in this encounter Plan of Treatment Not on file documented as of this encounter Procedures Procedure Name Priority Date/Time Associated Diagnosis Comments PAIN RADIOFREQUENCY ABLATION SHOULDER LEFT Routine 02/19/2024 9:50 AM CDT Osteoarthritis of shoulder region documented in this encounter Results * PAIN Radiofreq Ablation [...] localized, shoulder region documented in this encounter Administered Medications Inactive Administered Medications - up to 3 most recent administrations Medication Order MAR Action Action Date Dose Rate Site BUPivacaine (MARCAINE) 0.25 % injection 7.5 mg 7.5 mg (3 mL), Other, ONCE, On Mon02/19/24 at 1000, For 1 dose $Given by Other 02/19/2024 9:41 AM CDT 7.5 mg lidocaine (PF) (XYLOCAINE) 1 % injection 3 mL 3 mL, Other, ONCE, On Mon02/19/24 at 1000, For 1 dose $Given by Other 02/19/2024 10:14 AM CDT 3 mLs lidocaine (PF) (XYLOCAINE) injection 6 mL 6 mL, Other, ONCE, On Mon02/19/24 at 1000, For 1 dose $Given by Other 02/19/2024 9:50 AM CDT 6 mLs documented in this encounter Care Teams Web Marketing Coordinator Relationship Specialty Start Date End Date Natalia Everett DO [address] [place] [address] PCP - General Family Practice 02/19/24 documented as of this encounter
--- OUTSIDE RECORDS SUMMARY | 2024-04-20 05:41 | XMS_ITS | Encounter Summary ---
Author Organization [facility] Address [address] [facility] [place] [place] [address] Care Team Providers Care Adult Family Home Program Manager Name Role Phone Natalia Everett DO Primary Care Provider [phone] Encounter Details Date Type Department Care Team (Latest Contact Info) Description 04/10/2024 Travel Social History Tobacco Use Types Packs/Day Years Used Date Smoking Tobacco: Never Smokeless Tobacco: Never PHQ-2 Answer Date Recorded PHQ-2 Score 0 04/10/2024 Adolescent Education Answer Date Record ed Getting School Help Needed Not on file 11/23 Sex and Gender Information Value Date Recorded Sex Assigned at Female 11/23/2023 2:16 PM [employer] Gender Identity Not on file Sexual Orientation Not on file documented as of this encounter Plan of Treatment Not on file documented as of this encounter Visit Diagnoses Not on filedocumented in this encounter Care Teams Adult Family Home Program Manager Relationship Specialty Start Date End Date Natalia Everett DO [address] [place] [address] PCP - General Family Practice 02/19/24 documented as of this encounter
[2024-04-20 05:48] LABS: HCO3 VBG 29 mmol/L (21-28); PCO2 VBG 44 mmHG (40-50); pH VBG 7.433 (7.32-7.43)
[2024-04-20 05:53] LABS: Basophils Percent Auto 0.3 % (0.0-3.0); Eosinophils Percent Auto 1.8 % (0.0-7.0); Hematocrit 39.7 % (33.0-51.0); Hemoglobin* 12.6 gm/dL (12.0-16.0); Immature Granulocytes Pct Auto 0.5 %; Lymphocytes Percent Auto 11.2 % (20-44); Mean Corpuscular HGB Conc 32 gm/dL (32-36); Mean Corpuscular Hemoglobin 30 pg (26-34); Mean Corpuscular Volume 96 fL (80-100); Neutrophils Percent Auto 81.2 % (42.0-72.0); Platelet Count* 232 K/uL (140-440); RDW Coefficient of Variation % 12.9 % (11.5-15.5); Red Blood Count 4.15 m/uL (4.00-5.20); White Blood Count* 14.27 K/uL (4.50-11.00)
[2024-04-20 05:56] LABS: Slide Review Reflex No
[2024-04-20 06:05] LABS: Chloride* 106 mmol/L (96-114)
[2024-04-20 06:06] LABS: Sodium* 139 mmol/L (135-149)
[2024-04-20 06:08] LABS: Creatinine* 0.7 mg/dL (0.5-1.5); Est. Creatinine Clearance* 31.04; Estimated Glomerular Filt Rate 85 ml/min
[2024-04-20 06:09] LABS: Anion Gap 6 mEq/L (7-15); Blood Urea Nitrogen* 29 mg/dL (7-30); Carbon Dioxide* 27 mmol/L (20-32); Glucose* 101 mg/dL (60-115)
[2024-04-20 06:10] LABS: Calcium* 9.9 mg/dL (8.4-10.6); Magnesium* 1.9 mg/dL (1.5-2.6)
[2024-04-20 06:12] LABS: C Reactive Protein* < 0.5 mg/dL (0.5-1.0)
[2024-04-20 06:13] LABS: Potassium* 4.7 mmol/L (3.6-5.1)
[2024-04-20 06:19] LABS: NT Pro B Type NatriureticPept* 631 pg/mL
[2024-04-20 06:21] LABS: Troponin I* < 0.01 ng/mL (0.01-0.04)
[2024-04-20 06:42] LABS: D Dimer Quantitative* > 20.00 ug/ml (0.00-0.50)
--- NOTE | 2024-04-20 06:57 | CRLHL7_ITS ---
For Patients: As a result of the Cures Act, medical imaging exams and procedure reports are released immediately into your electronic medical record. You may view this report before your referring provider. If you have questions, please contact your health care provider. INDICATION: Fall. Hip injury. TECHNIQUE: CT abdomen and pelvis acquired with 95 cc Isovue 370 IV contrast. COMPARISON: None. FINDINGS: Lower chest: Unremarkable. Liver: Unremarkable. Normal in size and attenuation. No suspicious masses. Gallbladder and bile ducts: Unremarkable. No stones or inflammation. No biliary dilatation. Pancreas: Unremarkable. No mass or inflammation. Spleen: Unremarkable. Normal in size. No masses. Adrenal glands: Unremarkable. No nodules. Kidneys: Unremarkable. No suspicious masses, stones, or hydronephrosis. GI tract: Unremarkable. Normal in caliber. No sign of mass or inflammation. Normal appendix. Vasculature: Abdominal aorta is normal in caliber. Mesenteric arteries are patent. Lymph nodes: No lymphadenopathy. Peritoneum/Abdominal Wall: Unremarkable. No sign of mass or infiltration. No free air or significant free fluid. Pelvis: Unremarkable. Bones: No sign of acute fracture. Large subchondral cyst in the right femoral neck. IMPRESSION: No signs of acute injury or disease. Specifically, no sign of hip fracture. Please note that all CT scans at this facility use dose modulation, iterative reconstruction, and/or weight-based dosing when appropriate to reduce radiation dose to as low as reasonably achievable. Dictated by Lonnie Gilman MD @ 04/20/2024 8:32:49 AM (Electronically Signed)
--- NOTE | 2024-04-20 06:57 | CRLHL7_ITS ---
For Patients: As a result of the Century Cures Act, medical imaging exams and procedure reports are released immediately into your electronic medical record. You may view this report before your referring provider. If you have questions, please contact your health care provider. INDICATION: Fall. Hypoxia and elevated D-dimer. TECHNIQUE: CT chest PE was acquired with 100 cc Isovue 370 IV contrast. COMPARISON: None. FINDINGS: Heart and vasculature: Contrast opacification of the pulmonary arterial tree is adequate. No sign of pulmonary embolism. Heart size is normal. Thoracic aorta and pulmonary artery are normal in caliber. Lungs and pleura: No suspicious nodules or infiltrates. No pleural effusions, pleural thickening, or pneumothorax. Lymph nodes/mediastinum: No mediastinal, hilar, or axillary adenopathy. Chest wall: No masses. Upper abdomen: No acute or significant findings. Bones: Unremarkable for age. IMPRESSION: No sign of acute injury or disease. No pulmonary embolism and the lungs are clear. Please note that all CT scans at this facility use dose modulation, iterative reconstruction, and/or weight-based dosing when appropriate to reduce radiation dose to as low as reasonably achievable. Dictated by Lonnie Gilman MD @ 04/20/2024 8:23:13 AM (Electronically Signed)
--- NOTE | 2024-04-20 06:57 | CRLHL7_ITS ---
For Patients: As a result of the Century Cures Act, medical imaging exams and procedure reports are released immediately into your electronic medical record. You may view this report before your referring provider. If you have questions, please contact your health care provider. Indication: Fall Technique: Noncontrast head CT Comparison: No comparison Findings: Mild generalized parenchymal volume loss. Axial noncontrast images through the brain parenchyma demonstrates no acute intracranial hemorrhage or mass. No midline shift. No abnormal extra-axial air or fluid collections are seen. Skull and scalp are unremarkable. Impression: No acute intracranial hemorrhage or mass. Please note that all CT scans at this facility use dose modulation, iterative reconstruction, and/or weight-based dosing when appropriate to reduce radiation dose to as low as reasonably achievable. Dictated by Emily Ji MD @ 04/20/2024 8:12:34 AM (Electronically Signed)
[2024-04-20] MEDS: 0.9 % SODIUM CHLORIDE 1000 ml 1,000 ML IV (07:02)
[2024-04-20 07:15] LABS: PCR FLU A Negative PCR FLU A (Negative); PCR FLU B Negative PCR FLU B (Negative); PCR RSV Negative PCR RSV (Negative); SARS PCR* Negative SARS-CoV-2 (Negative)
--- NOTE | 2024-04-20 08:22 | CRLHL7_ITS ---
For Patients: As a result of the Century Cures Act, medical imaging exams and procedure reports are released immediately into your electronic medical record. You may view this report before your referring provider. If you have questions, please contact your health care provider. INDICATION: Fall with low back pain. TECHNIQUE: CT lumbar spine without contrast. COMPARISON: None. FINDINGS: Vertebrae: Alignment is normal. There are no fractures or suspicious bony lesions. Discs and facet joints: Disc spaces and facets are within normal limits for age. Extraspinal findings: Prevertebral soft tissues and visualized retroperitoneum are unremarkable. IMPRESSION: No sign of acute injury in the lumbar spine. Please note that all CT scans at this facility use dose modulation, iterative reconstruction, and/or weight-based dosing when appropriate to reduce radiation dose to as low as reasonably achievable. Dictated by Lonnie Gilman MD @ 04/20/2024 9:21:45 AM (Electronically Signed)
--- NOTE | 2024-04-20 08:34 | CRLHL7_ITS ---
For Patients: As a result of the Century Cures Act, medical imaging exams and procedure reports are released immediately into your electronic medical record. You may view this report before your referring provider. If you have questions, please contact your health care provider. INDICATION: Elevated D-dimer TECHNIQUE: A compression venous ultrasound exam was performed of both lower extremities using mooney scale imaging, color Doppler and spectral Doppler analysis. FINDINGS: Sonographic imaging of the lower extremities demonstrates normal compressibility and color Doppler venous blood flow within the common femoral, deep femoral, and proximal greater saphenous veins. Within the thighs the femoral veins are patent and compressible. At a lower level the popliteal and posterior tibial veins also show normal compressibility and color Doppler venous blood flow. Right peroneal veins are not visualized. IMPRESSION: No evidence of deep vein thrombosis within either the left or right lower extremity. Dictated by Emily Ji MD @ 04/20/2024 10:28:24 AM (Electronically Signed)
[2024-04-20] MEDS: OXYCODONE 5 MG TABLET 2.5 MG PO ×2 (08:59→18:35)
[2024-04-20 09:07] LABS: Appearance Urine Clear (Clear); Bilirubin Urine Negative (Negative); Blood Urine Negative (Negative); Color Urine Yellow (Yellow); Glucose Urine Negative (Negative); Ketones Urine Negative (Negative); Leukocyte Esterase Urine Negative (Negative); Nitrite Urine Negative (Negative); Protein Urine Negative (Negative); Urobilinogen Urine 0.2 (0.2-1.0); pH Urine 5.5 (5.0-8.5)
[2024-04-20 09:41] LABS: RBC Urine 0-2 (0-2); WBC Urine 0-2 (0-5)
--- NOTE | 2024-04-20 10:16 | ED.NURSE ---
attempted to ambulatex 2nd time. pt unable to bear wt on right leg. family at bedside.
--- NOTE | 2024-04-20 13:23 | CRLHL7_ITS ---
For Patients: As a result of the Cures Act, medical imaging exams and procedure reports are released immediately into your electronic medical record. You may view this report before your referring provider. If you have questions, please contact your health care provider. INDICATION: Fall, right leg pain. TECHNIQUE: Two views of the right femur. FINDINGS: No right femur fracture. Hip and knee appear intact. Advanced degenerative changes in the hip joint. Chondrocalcinosis in the knee joint. Contrast in the urinary bladder from recent CT scan. Dictated by Leopoldo Haile MD @ 04/20/2024 3:40:58 PM (Electronically Signed)
--- NOTE | 2024-04-20 14:24 | PC.NURSE ---
End of Shift: patient pleasant and cooperative, A&O. Patients SpO2 has been ranging anywhere from 86%-94% on RA. Encouraged pursed lip breathing, which would correct the low SpO2. All other vitals stable. Patient reports pain on her right hip this shift, rating a 2 at rest. Patient appears comfortable in bed.
--- NOTE | 2024-04-20 14:38 | PM.IMHP1 ---
Hospitalist- H&P: LAKSHMI History of Present Illness Date Seen: 04/20/24 Chief complaint: Fall Narrative: Ingrid Granger is a 83 year old female admitted to the hospital for right thigh and buttock pain following a fall at home. Patient reports she was doing well yesterday. She got during the night and fell injuring her right thigh/buttock area as well as her right elbow. After her fall she was unable to put weight on her right lower extremity. She is brought to the emergency room for this. She did not pass out. She tripped and fell. She did hit her head but did not lose consciousness. She reports no head or neck pain. Patient reports no previous problems with low back, right hip, pelvis, thigh or knee pain or injury similar to this. She is having no pain going down her leg except she does get pain in her medial thigh on the right with motion in her hip. She is not having numbness or weakness in her leg. She reports no loss of bowel or bladder control. She was noted to have hypoxia with O2 sats in the 80s in the emergency department. She reported no dyspnea and no other respiratory symptoms. She has a history of coronary disease but has not had any chest pain nocturnal dyspnea orthopnea. She is not having any exertional dyspnea. She does not have a history of asthma or COPD. She had a remote history of smoking and stopped when she was 28 years old. She does not recall ever being told that she had hypoxia. Not treated with inhalers. No history of PE or DVT. She has had no recent respiratory illness, cold, fever, cough. She had COVID last September when she was visiting in [place]. She did not get ill enough to be hospitalized at that time. Review of Systems Narrative: She reports generally doing well and feeling well except for the pain that she is experiencing and she points to her medial right thigh and her posterior right hip/buttock area as a place where she is feeling pain with activity. She reports being entirely comfortable at rest when she is not moving. She reports some troubles with swallowing larger pills. She had evaluation in the last 6 months for difficulties with swallowing and appears to have an esophageal dysmotility problem. She dresses is primarily by eating slowly and washing her food down with generous amounts of fluid. She is seeing orthopedic care providers in the [facility] for chronic left shoulder problems.. She is left-handed. [facility] Medical History (Updated 04/20/24 @ 15:00 by Luis Poole MD) Alcohol abuse ?F10.10 - Alcohol abuse, uncomplicated (ICD-10) Coronary artery disease ?I25.10 - Atherosclerotic heart disease of [place] coronary artery without angina pectoris (ICD-10) Cataract ?H26.9 - Unspecified cataract (ICD-10) Osteopenia of multiple sites ?M85.89 - Other specified disorders of bone density and structure, multiple sites (ICD-10) Episodic atrial fibrillation ?I48.0 - Paroxysmal atrial fibrillation (ICD-10) Acquired hyperlipoproteinemia ?E78.5 - Hyperlipidemia, unspecified (ICD-10) Essential (primary) hypertension ?I10 - Essential (primary) hypertension (ICD-10) Hypothyroidism ?E03.9 - Hypothyroidism, unspecified (ICD-10) Surgical History History of repair of hiatal hernia ?Z98.890 - Other specified postprocedural states (ICD-10) ?Z87.19 - Personal history of other diseases of the digestive system (ICD-10) S/P CABG x 3 ?Z95.1 - Presence of aortocoronary bypass graft (ICD-10) Social History (Updated 04/20/24 @ 14:50 by Luis Poole MD) Narrative: She lives in independent apartment at [facility]. Her son Valdo is here with her today. Remote history of cigarette smoking, quit at age 28. History of alcohol abuse but none in at least 12 years. What is your current living situation?: I presently have a place to live Problems where you live: no known problems Problems where you live details: n/a In the past 12 months, utilities in danger of being shut off: no In past 12 months, lack of transportation kept you from medical appts, meetings, work, or getting things needed for daily living: no In the past 12 mos, have been you worried that your food would run out before you had money to buy more?: never true In the past 12 mos, the food you bought just didn't last and you didn't have money to buy more?: never true Highest level of school completed/degree received: Bachelor's degree Smoking Status: Former smoker Do you use any of these nicotine containing products: None Second hand tobacco smoke exposure: No How often do you have a drink containing alcohol: never How often do you have six or more drinks on one occasion: Never AUDIT-C Alcohol total score: 0 Non-prescribed substance use: denies use Caffeine: Yes (1 cup) How often does anyone, including family, friends and others, physically hurt you: never How often does anyone, including family, friends and others, insult or talk down to you: never How often does anyone, including family, friends and others, threaten you with harm: never How often does anyone, including family, friends and others, scream or curse at you: never service: No Meds Home Medications and Allergies Home Medications ?Medication ?Instructions ?Recorded ?Confirmed ?Type acetaminophen 500 mg tablet 500 mg PO Q6H PRN 11/07/22 04/20/24 History aspirin 81 mg chewable tablet 81 mg PO DAILY 11/07/22 04/20/24 History atorvastatin 20 mg tablet 20 mg PO HS 11/07/22 04/20/24 History cholecalciferol (vitamin D3) 25 1,000 unit PO DAILY 11/07/22 04/20/24 History mcg (1,000 unit) capsule levothyroxine 25 mcg capsule 25 mcg PO DAILY 11/07/22 04/20/24 History metoprolol succinate 25 mg 25 mg PO DAILY 11/07/22 04/20/24 History tablet,extended release 24 hr mirtazapine 15 mg tablet 15 mg PO QHS 11/07/22 04/20/24 History multivitamin (Daily Multi-Vitamin 1 tab PO DAILY 11/07/22 04/20/24 History tablet) calcium carbonate (Calcium 600) 600 mg PO BID 04/20/24 04/20/24 History lisinopril 10 mg tablet 10 mg PO DAILY 04/20/24 04/20/24 History omeprazole 40 mg capsule,delayed 40 mg PO DAILY PRN 04/20/24 04/20/24 History release Allergies Allergy/AdvReac Type Severity Reaction Status Date / Time Penicillins Allergy Unknown Verified 04/20/24 07:36 Sulfa (Sulfonamide Allergy Unknown Verified 04/20/24 07:36 Antibiotics) Exam Narrative: Exam Narrative: She is alert and appears in no distress. She gives her own history. History is corroborated by her son as well. Head is without trauma. She has no tenderness over her head and neck. Neck moves without significant discomfort. Eyes are normal. Status post cataract surgery. Pupils equal round reactive to light. Oropharynx is normal. Neck is supple without mass or adenopathy or tenderness. Respirations are clear to auscultation. No wheezing rales or rhonchi. Breathing is unlabored. Cardiovascular: S1, S2, regular rate and rhythm. No murmur gallop or rub. Abdomen: Bowel sounds active. Abdomen is soft without tenderness or mass. Examination of her back shows no apparent trauma. She has a bandage around his skin tear on her right elbow. She moves her right upper extremity well. Left upper extremity has pain in the shoulder with range of motion. Left Shoulder has been a chronic problem for her. Lower extremity examination. No evidence of trauma on inspection. Specifically no bruising abrasions or deformities seen. Palpation shows no tenderness with palpation over her lumbar spine and low back sacrum, right hip/buttock/greater trochanter. No tenderness with palpation over her thigh including the medial thigh where she indicates he is having some pain. No tenderness over her knee or leg. No apparent joint effusion or redness or warmth in her knee. Foot is unremarkable with both feet having marked diminished pedal pulses without ulcerations or skin lesions. Range of motion in the right hip is somewhat limited but without significant pain. When I abduct the hip to about 30? she reports pain in her right buttock area. When I flex the hip to about 45? she has pain on her distal medial thigh, just above the knee. Internal external rotation of the hip/log-rolling is without discomfort. Adduction of the hip is without discomfort. Const: Vital Signs, click to edit/add: Vital Signs - 24 hr 04/20/24 04:55 04/20/24 05:31 04/20/24 05:35 Temperature 98.4 F Pulse Rate Pulse Rate [Pulse Oximeter] Pulse Rate [Right Pulse Oximeter] 76 Respiratory Rate 20 Blood Pressure Blood Pressure [Ri ght Arm] Blood Pressure [Ri ght Upper Arm] 138/92 H Pulse Oximetry 92 94 94 Oxygen Delivery Me thod Room Air Nasal Cannula Oxygen Flow Rate 2 04/20/24 06:22 04/20/24 06:31 04/20/24 06:32 Temperature Pulse Rate 69 78 91 Pulse Rate [Pulse Oximeter] Pulse Rate [Right Pulse Oximeter] Respiratory Rate 20 20 Blood Pressure 140/57 H 134/50 L Blood Pressure [Ri ght Arm] Blood Pressure [Ri ght Upper Arm] Pulse Oximetry 95 94 93 Oxygen Delivery Me thod Oxygen Flow Rate 04/20/24 06:45 04/20/24 07:00 04/20/24 07:15 Temperature Pulse Rate 67 76 74 Pulse Rate [Pulse Oximeter] Pulse Rate [Right Pulse Oximeter] Respiratory Rate Blood Pressure Blood Pressure [Ri ght Arm] Blood Pressure [Ri ght Upper Arm] Pulse Oximetry 97 93 89 Oxygen Delivery Me thod Oxygen Flow Rate 04/20/24 07:48 04/20/24 07:54 04/20/24 08:00 Temperature Pulse Rate 75 77 75 Pulse Rate [Pulse Oximeter] Pulse Rate [Right Pulse Oximeter] Respiratory Rate Blood Pressure 140/59 H Blood Pressure [Ri ght Arm] Blood Pressure [Ri ght Upper Arm] Pulse Oximetry 92 95 92 Oxygen Delivery Me thod Oxygen Flow Rate 04/20/24 08:02 04/20/24 08:15 04/20/24 08:30 Temperature Pulse Rate 76 83 76 Pulse Rate [Pulse Oximeter] Pulse Rate [Right Pulse Oximeter] Respiratory Rate Blood Pressure 133/60 Blood Pressure [Ri ght Arm] Blood Pressure [Ri ght Upper Arm] Pulse Oximetry 95 94 96 Oxygen Delivery Me thod Oxygen Flow Rate 04/20/24 08:53 04/20/24 09:00 04/20/24 09:15 Temperature Pulse Rate 71 73 70 Pulse Rate [Pulse Oximeter] Pulse Rate [Right Pulse Oximeter] Respiratory Rate Blood Pressure Blood Pressure [Ri ght Arm] Blood Pressure [Ri ght Upper Arm] Pulse Oximetry 87 L 89 88 Oxygen Delivery Me thod Oxygen Flow Rate 04/20/24 09:30 04/20/24 09:45 04/20/24 10:00 Temperature Pulse Rate 72 70 68 Pulse Rate [Pulse Oximeter] Pulse Rate [Right Pulse Oximeter] Respiratory Rate Blood Pressure Blood Pressure [Ri ght Arm] Blood Pressure [Ri ght Upper Arm] Pulse Oximetry 90 88 94 Oxygen Delivery Me thod Oxygen Flow Rate 04/20/24 10:15 04/20/24 10:30 04/20/24 10:45 Temperature Pulse Rate 68 70 70 Pulse Rate [Pulse Oximeter] Pulse Rate [Right Pulse Oximeter] Respiratory Rate Blood Pressure Blood Pressure [Ri ght Arm] Blood Pressure [Ri ght Upper Arm] Pulse Oximetry 90 90 90 Oxygen Delivery Me thod Oxygen Flow Rate 04/20/24 11:00 04/20/24 11:15 04/20/24 11:18 Temperature Pulse Rate 68 66 Pulse Rate [Pulse Oximeter] Pulse Rate [Right Pulse Oximeter] Respiratory Rate 18 Blood Pressure Blood Pressure [Ri ght Arm] Blood Pressure [Ri ght Upper Arm] 133/60 Pulse Oximetry 90 88 89 Oxygen Delivery Me thod Room Air Oxygen Flow Rate 04/20/24 12:09 04/20/24 12:35 Temperature 97.9 F Pulse Rate Pulse Rate [Pulse Oximeter] 66 Pulse Rate [Right Pulse Oximeter] Respiratory Rate 18 18 Blood Pressure Blood Pressure [Ri ght Arm] 132/62 Blood Pressure [Ri ght Upper Arm] Pulse Oximetry 90 90 Oxygen Delivery Me thod Room Air Room Air Oxygen Flow Rate Documenting provider has reviewed patient's vital signs: yes Hospitalist - H&P: Result Labs Labs: Short CBC 04/20/24 Range/Units 05:35 WBC 14.27 H (4.50-11.00) K/uL Hgb 12.6 (12.0-16.0) gm/dL Hct 39.7 (33.0-51.0) % Plt Count 232 (140-440) K/uL BMP 04/20/24 05:35 Sodium 139 Potassium 4.7 Chloride 106 Carbon Dioxide 27 BUN 29 Creatinine 0.7 Glucose 101 Calcium 9.9 Cardiac Enzymes 04/20/24 04/20/24 Range/Units 05:35 05:35 Troponin I < 0.01 L Cancelled (0.01-0.04) ng/mL Urine 04/20/24 Range/Units Unknown Urine Color Yellow (Yellow) Urine Appearance Clear (Clear) Urine pH 5.5 (5.0-8.5) Ur Specific [place] 1.010 (1.000-1.030) Urine Protein Negative (Negative) Urine Glucose (UA) Negative (Negative) Imaging CT scan - abdomen: Radiologist's impression: INDICATION: Fall. Hip injury. TECHNIQUE: CT abdomen and pelvis acquired with 95 cc Isovue 370 IV contrast. COMPARISON: None. FINDINGS: Lower chest: Unremarkable. Liver: Unremarkable. Normal in size and attenuation. No suspicious masses. Gallbladder and bile ducts: Unremarkable. No stones or inflammation. No biliary dilatation. Pancreas: Unremarkable. No mass or inflammation. Spleen: Unremarkable. Normal in size. No masses. Adrenal glands: Unremarkable. No nodules. Kidneys: Unremarkable. No suspicious masses, stones, or hydronephrosis. GI tract: Unremarkable. Normal in caliber. No sign of mass or inflammation. Normal appendix. Vasculature: Abdominal aorta is normal in caliber. Mesenteric arteries are patent. Lymph nodes: No lymphadenopathy. Peritoneum/Abdominal Wall: Unremarkable. No sign of mass or infiltration. No free air or significant free fluid. Pelvis: Unremarkable. Bones: No sign of acute fracture. Large subchondral cyst in the right femoral neck. IMPRESSION: No signs of acute injury or disease. Specifically, no sign of hip fracture. Venous US: Radiologist's impression: INDICATION: Elevated D-dimer TECHNIQUE: A compression venous ultrasound exam was performed of both lower extremities using mooney scale imaging, color Doppler and spectral Doppler analysis. FINDINGS: Sonographic imaging of the lower extremities demonstrates normal compressibility and color Doppler venous blood flow within the common femoral, deep femoral, and proximal greater saphenous veins. Within the thighs the femoral veins are patent and compressible. At a lower level the popliteal and posterior tibial veins also show normal compressibility and color Doppler venous blood flow. Right peroneal veins are not visualized. IMPRESSION: No evidence of deep vein thrombosis within either the left or right lower extremity. CT scan - chest: Radiologist's impression: INDICATION: Fall. Hypoxia and elevated D-dimer. TECHNIQUE: CT chest PE was acquired with 100 cc Isovue 370 IV contrast. COMPARISON: None. FINDINGS: Heart and vasculature: Contrast opacification of the pulmonary arterial tree is adequate. No sign of pulmonary embolism. Heart size is normal. Thoracic aorta and pulmonary artery are normal in caliber. Lungs and pleura: No suspicious nodules or infiltrates. No pleural effusions, pleural thickening, or pneumothorax. Lymph nodes/mediastinum: No mediastinal, hilar, or axillary adenopathy. Chest wall: No masses. Upper abdomen: No acute or significant findings. Bones: Unremarkable for age. IMPRESSION: No sign of acute injury or disease. No pulmonary embolism and the lungs are clear. CT lumbar spine: Radiologist's impression: INDICATION: Fall with low back pain. TECHNIQUE: CT lumbar spine without contrast. COMPARISON: None. FINDINGS: Vertebrae: Alignment is normal. There are no fractures or suspicious bony lesions. Discs and facet joints: Disc spaces and facets are within normal limits for age. Extraspinal findings: Prevertebral soft tissues and visualized retroperitoneum are unremarkable. IMPRESSION: No sign of acute injury in the lumbar spine. CT scan - head: Radiologist's impression: Indication: Fall Technique: Noncontrast head CT Comparison: No comparison Findings: Mild generalized parenchymal volume loss. Axial noncontrast images through the brain parenchyma demonstrates no acute intracranial hemorrhage or mass. No midline shift. No abnormal extra-axial air or fluid collections are seen. Skull and scalp are unremarkable. Impression: No acute intracranial hemorrhage or mass. Assessment and Plan Assessment and plan (1) Hypoxia: Problem comment: Hypoxia without dyspnea. Patient has been in the upper 80s and low 90s for O2 sats for the 1/2 hour I was visiting with her. I suspect some of this is chronic possibly related to sleep apnea. No obvious cardiopulmonary disease to explain this. Continue to monitor Status: Acute (2) Hip pain: Problem comment: She has no focal tenderness. The pain is with active range of motion and is felt in the right buttock and in medial right thigh. Obtain femur x-rays and consult Ortho. Weight-bearing as tolerated and pain medicine as needed. Currently unable to walk Status: Acute (3) D-dimer, elevated: Problem comment: Chest CT for PE and venous Dopplers are both negative. No obvious source for elevated D-dimer including no bleeding or clotting or inflammatory process. Status: Acute Plan Continue to work on pain management, mobility, evaluation ongoing for pain and injury, hypoxia and elevated D-dimer. Total Time Spent Total Time Spent: Total time spent today is 75 minutes in evaluation management on the day of admission
--- NOTE | 2024-04-20 18:47 | PC.NURSE ---
End of Shift: Patient pleasant and cooperative. Patient vitally stable, lungs clear, BS WNL, IV SL and intact. Patient rates pain with no movement 1/10, 8/10 with activity. Commode used to urinate. Patient 1-2/walker depending of strength of person assisting. Patient has urinating once, under this writers care. Patient ordered dinner but has not yet eaten it. Right elbow dressing from abrasion C/D/I. Patient given 5mg of oxy at end of this shift. Patient has been laying comfortably in bed but does lean to left due to right sided discomfort.
--- NOTE | 2024-04-20 20:00 | PM.EN ---
Chart Event Note Date Seen: 04/20/24 Chart Event Note: I spoke with Ingrid and her son this evening to give them the results of the Xray of her femur. They were agreeable with seeing how she does with ambulation over the next day rather than ordering an MRI since she is not painful at rest and tenderness is in her buttock and thigh, more likely soft tissue, and Xray is negative for fracture.
[2024-04-20] MEDS: CALCIUM CARBONATE 500 MG TABLET 600 MG PO (20:47)
[2024-04-20] MEDS: ATORVASTATIN 10 MG TABLET 20 MG PO (20:47)
[2024-04-20] MEDS: MIRTAZAPINE 15 MG TABLET PO (20:47)
[2024-04-20] MEDS: ENOXAPARIN 30 MG/0.3ML INJ SUBCUT (20:47)
[2024-04-20] MEDS: SODIUM CHLORIDE 0.9 % (FLUSH) 10 ML SYRINGE 5 ML IVF (20:48)
[2024-04-21 03:00] VITALS: BP 161/64; PULSE 78; RESP 20; TEMP 36.8; O2SAT 96
[2024-04-21] MEDS: ACETAMINOPHEN 325 MG TABLET 650 MG PO ×4 (04:22→21:53)
--- NOTE | 2024-04-21 06:22 | PC.NURSE ---
Shift note: Pt is doing well with A1 pelvic transfer from bed to bedside commode. Alert and oriented. Pt did complained of left leg pain. Tylenol given which appeared effective. Dressing to right elbow tear appeared clean and dry. Vitally stable. Pt had adequate sleep.
[2024-04-21 06:44] LABS: Basophils Absolute Auto 0.05 K/uL (0.00-0.30); Basophils Percent Auto 0.6 % (0.0-3.0); Eosinophils Absolute Auto 0.38 K/uL (0.00-0.50); Eosinophils Percent Auto 4.5 % (0.0-7.0); Hematocrit 34.5 % (33.0-51.0); Hemoglobin* 10.9 gm/dL (12.0-16.0); Immature Granulocytes Abs Auto 0.03 K/uL (0.00-0.30); Immature Granulocytes Pct Auto 0.4 %; Lymphocytes Percent Auto 15.2 % (20-44); Mean Corpuscular HGB Conc 32 gm/dL (32-36); Mean Corpuscular Hemoglobin 30 pg (26-34); Mean Corpuscular Volume 95 fL (80-100); Monocytes Percent Auto 6.5 % (0.0-11.0); Neutrophils Percent Auto 72.8 % (42.0-72.0); Platelet Count* 208 K/uL (140-440); RDW Coefficient of Variation % 13.1 % (11.5-15.5); Red Blood Count 3.65 m/uL (4.00-5.20); White Blood Count* 8.36 K/uL (4.50-11.00)
[2024-04-21 06:51] LABS: Slide Review Reflex No
[2024-04-21] MEDS: LEVOTHYROXINE 25 MCG TABLET PO (07:04)
[2024-04-21 07:16] LABS: Albumin* 3.3 g/dL (3.3-5.0)
[2024-04-21 07:17] LABS: INR 1.13 (0.91-1.10); Prothrombin Time 15.2 Seconds
[2024-04-21 07:19] LABS: Alanine Aminotransferase* 16 U/L (4-35); Alkaline Phosphatase* 66 U/L (40-150); Aspartate Amino Transferase* 25 U/L (12-35); Bilirubin Direct* 0.2 mg/dL (0.0-0.5); Bilirubin Total* 0.9 mg/dL (0.1-1.5); Total Protein* 5.7 g/dL (6.0-8.3)
[2024-04-21 07:22] LABS: C Reactive Protein* 3.8 mg/dL (0.5-1.0)
--- NOTE | 2024-04-21 08:09 | PM.ORCN ---
History of Present Illness HPI Time Seen by Provider: 07:50 Date Seen: 04/21/24 Consult date: 04/20/24 Requesting physician: Luis Poole Chief complaint: Fall Narrative: Ingrid is a pleasant 83 year-old female that presented to [facility] ED yesterday (04/20/24) after a fall in her bathroom where she landed on her back and right side (mostly right hip/right elbow). Since this injury, Ingrid has been unable to bear weight on her right lower extremity. This morning, she reports no pain at rest in her recliner. Ingrid reports right groin pain yesterday, but denies groin pain currently. Denies pain with gentle movement of her right leg in her recliner. Denies chest pain, SOB and bilateral calf tenderness. Denies numbness/tingling distally, but reports occasionally she feels numbness in her toes when she her feet are cold and she is not wearing socks. Patient has a known history of bilateral hip osteoarthritis, but denies right and left hip pain prior to this fall. At baseline, prior to this fall, Ingrid ambulates with a walker. Resides at independent living at [facility]. Denies previous right lower extremity surgical history and injuries. Patient has a [id number] that is an Orthopedic Surgeon in [place], Dr. Oswald Pepper. Review of Systems Const: Denies: fever or chills Cardio: Denies: chest pain or shortness of breath with exertion Resp: Denies: shortness of breath [facility] Medical History Alcohol abuse ?F10.10 - Alcohol abuse, uncomplicated (ICD-10) Coronary artery disease ?I25.10 - Atherosclerotic heart disease of [place] coronary artery without angina pectoris (ICD-10) Cataract ?H26.9 - Unspecified cataract (ICD-10) Osteopenia of multiple sites ?M85.89 - Other specified disorders of bone density and structure, multiple sites (ICD-10) Episodic atrial fibrillation ?I48.0 - Paroxysmal atrial fibrillation (ICD-10) Acquired hyperlipoproteinemia ?E78.5 - Hyperlipidemia, unspecified (ICD-10) Essential (primary) hypertension ?I10 - Essential (primary) hypertension (ICD-10) Hypothyroidism ?E03.9 - Hypothyroidism, unspecified (ICD-10) Surgical History History of repair of hiatal hernia ?Z98.890 - Other specified postprocedural states (ICD-10) ?Z87.19 - Personal history of other diseases of the digestive system (ICD-10) S/P CABG x 3 ?Z95.1 - Presence of aortocoronary bypass graft (ICD-10) Social History Narrative: She lives in independent apartment at [facility]. Her son Valdo is here with her today. Remote history of cigarette smoking, quit at age 28. History of alcohol abuse but none in at least 12 years. What is your current living situation?: I presently have a place to live Problems where you live: no known problems Problems where you live details: n/a In the past 12 months, utilities in danger of being shut off: no In past 12 months, lack of transportation kept you from medical appts, meetings, work, or getting things needed for daily living: no In the past 12 mos, have been you worried that your food would run out before you had money to buy more?: never true In the past 12 mos, the food you bought just didn't last and you didn't have money to buy more?: never true Highest level of school completed/degree received: Bachelor's degree Smoking Status: Former smoker Do you use any of these nicotine containing products: None Second hand tobacco smoke exposure: No How often do you have a drink containing alcohol: never How often do you have six or more drinks on one occasion: Never AUDIT-C Alcohol total score: 0 Non-prescribed substance use: denies use Caffeine: Yes (1 cup) How often does anyone, including family, friends and others, physically hurt you: never How often does anyone, including family, friends and others, insult or talk down to you: never How often does anyone, including family, friends and others, threaten you with harm: never How often does anyone, including family, friends and others, scream or curse at you: never service: No Meds Home Medications and Allergies Home Medications ?Medication ?Instructions ?Recorded ?Confirmed ?Type acetaminophen 500 mg tablet 500 mg PO Q6H PRN 11/07/22 04/20/24 History aspirin 81 mg chewable tablet 81 mg PO DAILY 11/07/22 04/20/24 History atorvastatin 20 mg tablet 20 mg PO HS 11/07/22 04/20/24 History cholecalciferol (vitamin D3) 25 1,000 unit PO DAILY 11/07/22 04/20/24 History mcg (1,000 unit) capsule levothyroxine 25 mcg capsule 25 mcg PO DAILY 11/07/22 04/20/24 History metoprolol succinate 25 mg 25 mg PO DAILY 11/07/22 04/20/24 History tablet,extended release 24 hr mirtazapine 15 mg tablet 15 mg PO QHS 11/07/22 04/20/24 History multivitamin (Daily Multi-Vitamin 1 tab PO DAILY 11/07/22 04/20/24 History tablet) calcium carbonate (Calcium 600) 600 mg PO BID 04/20/24 04/20/24 History lisinopril 10 mg tablet 10 mg PO DAILY 04/20/24 04/20/24 History omeprazole 40 mg capsule,delayed 40 mg PO DAILY PRN 04/20/24 04/20/24 History release Allergies Allergy/AdvReac Type Severity Reaction Status Date / Time Penicillins Allergy Unknown Verified 04/20/24 07:36 Sulfa (Sulfonamide Allergy Unknown Verified 04/20/24 07:36 Antibiotics) Ortho Exam Narrative Exam Narrative: Patient is alert and oriented x3. No acute distress. Converses with nonlabored breathing. Right hip exam: Log roll negative bilaterally. Abduction: 30 degrees without pain. Bilateral knee ROM: 0-100 degrees without pain. Right ER/IR: 45 degrees/20 degrees. C/o mild-moderate lateral mid-femur pain with internal rotation. Denies groin pain with both ER and IR. Left ER/IR: 45 degrees/20 degrees without pain. Unable to perform straight leg raise. Stinchfield negative. Alicia test negative. Tenderness: nontender over greater trochanter and abductor insertion site (right). Nontender to deep pressure of right groin. Mild-moderate tenderness with deep pressure to medial distal femur. Bilateral calves are soft and supple with no swelling, pain, tenderness, erythema, discoloration or coolness to the touch. CMS intact with 2+ Dorsalis pedis and Posterior Tibial pulses, digits pink, warm with brisk cap refill. Const Vital Signs, click to edit/add: Vital Signs - 24 hr 04/20/24 08:15 04/20/24 08:30 04/20/24 08:53 Temperature Pulse Rate 83 76 71 Pulse Rate [Pulse Oximeter] Respiratory Rate Blood Pressure [Left Arm] Blood Pressure [Right Arm] Blood Pressure [Right Upper Arm] Pulse Oximetry 94 96 87 L Oxygen Delivery Method Oxygen Flow Rate 04/20/24 09:00 04/20/24 09:15 04/20/24 09:30 Temperature Pulse Rate 73 70 72 Pulse Rate [Pulse Oximeter] Respiratory Rate Blood Pressure [Left Arm] Blood Pressure [Right Arm] Blood Pressure [Right Upper Arm] Pulse Oximetry 89 88 90 Oxygen Delivery Method Oxygen Flow Rate 04/20/24 09:45 04/20/24 10:00 04/20/24 10:15 Temperature Pulse Rate 70 68 68 Pulse Rate [Pulse Oximeter] Respiratory Rate Blood Pressure [Left Arm] Blood Pressure [Right Arm] Blood Pressure [Right Upper Arm] Pulse Oximetry 88 94 90 Oxygen Delivery Method Oxygen Flow Rate 04/20/24 10:30 04/20/24 10:45 04/20/24 11:00 Temperature Pulse Rate 70 70 68 Pulse Rate [Pulse Oximeter] Respiratory Rate Blood Pressure [Left Arm] Blood Pressure [Right Arm] Blood Pressure [Right Upper Arm] Pulse Oximetry 90 90 90 Oxygen Delivery Method Oxygen Flow Rate 04/20/24 11:15 04/20/24 11:18 04/20/24 12:09 Temperature 97.9 F Pulse Rate 66 Pulse Rate [Pulse Oximeter] 66 Respiratory Rate 18 18 Blood Pressure [Left Arm] Blood Pressure [Right Arm] 132/62 Blood Pressure [Right Upper Arm] 133/60 Pulse Oximetry 88 89 90 Oxygen Delivery Method Room Air Room Air Oxygen Flow Rate 04/20/24 12:35 04/20/24 15:53 04/20/24 15:53 Temperature 97.9 F Pulse Rate Pulse Rate [Pulse Oximeter] 73 73 Respiratory Rate 18 20 20 Blood Pressure [Left Arm] 138/70 Blood Pressure [Right Arm] Blood Pressure [Right Upper Arm] Pulse Oximetry 90 91 Oxygen Delivery Method Room Air Room Air Oxygen Flow Rate 04/20/24 15:53 04/20/24 19:00 04/20/24 22:43 Temperature 98.4 F Pulse Rate Pulse Rate [Pulse Oximeter] 83 78 Respiratory Rate 20 20 20 Blood Pressure [Left Arm] 124/67 Blood Pressure [Right Arm] Blood Pressure [Right Upper Arm] Pulse Oximetry 91 90 Oxygen Delivery Method Room Air Room Air Oxygen Flow Rate 04/20/24 22:43 04/20/24 22:43 04/21/24 03:00 Temperature 98 F 98.2 F Pulse Rate Pulse Rate [Pulse Oximeter] 78 78 Respiratory Rate 20 20 20 Blood Pressure [Left Arm] 123/59 L 161/64 H Blood Pressure [Right Arm] Blood Pressure [Right Upper Arm] Pulse Oximetry 88 88 96 Oxygen Delivery Method Room Air Room Air Nasal Cannula Oxygen Flow Rate 2 Results Labs Labs: Laboratory Results - last 48 hr 04/20/24 04/20/24 04/20/24 05:35 05:35 05:35 WBC 14.27 H RBC 4.15 Hgb 12.6 Hct 39.7 MCV 96 MCH 30 MCHC 32 RDW Coeff of [place] 12.9 Plt Count 232 Neut % (Auto) 81.2 H Lymph % (Auto) 11.2 L [place] % (Auto) 5.0 Eos % (Auto) 1.8 Baso % (Auto) 0.3 Neut # (Auto) 11.60 H Lymph # (Auto) 1.60 [place] # (Auto) 0.70 Eos # (Auto) 0.30 Baso # (Auto) 0.00 Abs Immat Gran (auto) 0.10 Imm/Tot Granulo (auto) 0.5 INR D-Dimer Quant (PE/DVT) > 20.00 H VBG pH 7.433 H VBG pCO2 44 VBG pO2 35.0 VBG HCO3 29 H Sodium 139 Potassium 4.7 Chloride 106 Carbon Dioxide 27 Anion Gap 6 L BUN 29 Creatinine 0.7 Estimated Creat Clear 31.04 Estimated GFR 85 Glucose 101 Calcium 9.9 Magnesium 1.9 Cancelled Total Bilirubin Direct Bilirubin AST ALT Alkaline Phosphatase Troponin I < 0.01 L Cancelled C-Reactive Protein < 0.5 L NT-Pro-B Natriuret Pep 631 Total Protein Albumin Urine Color Urine Appearance Urine pH Ur Specific [place] Urine Protein Urine Glucose (UA) Urine Ketones Urine Blood Urine Nitrite Urine Bilirubin Urine Urobilinogen Ur Leukocyte Esterase Urine RBC Urine WBC Ur Squamous Epith Cells Urine Bacteria SARS-CoV-2 (PCR) Influenza Type A (PCR) Influenza Type B (PCR) RSV (PCR) POC Troponin I 04/20/24 04/20/24 04/20/24 05:35 06:25 Unknown WBC RBC Hgb Hct MCV MCH MCHC RDW Coeff of [place]ba Plt Count Neut % (Auto) Lymph % (Auto) [place] % (Auto) Eos % (Auto) Baso % (Auto) Neut # (Auto) Lymph # (Auto) [place] # (Auto) Eos # (Auto) Baso # (Auto) Abs Immat Gran (auto) Imm/Tot Granulo (auto) INR D-Dimer Quant (PE/DVT) VBG pH VBG pCO2 VBG pO2 VBG HCO3 Sodium Potassium Chloride Carbon Dioxide Anion Gap BUN Creatinine Estimated Creat Clear Estimated GFR Glucose Calcium Magnesium Total Bilirubin Direct Bilirubin AST ALT Alkaline Phosphatase Troponin I C-Reactive Protein NT-Pro-B Natriuret Pep Cancelled Total Protein Albumin Urine Color Yellow Urine Appearance Clear Urine pH 5.5 Ur Specific [place] 1.010 Urine Protein Negative Urine Glucose (UA) Negative Urine Ketones Negative Urine Blood Negative Urine Nitrite Negative Urine Bilirubin Negative Urine Urobilinogen 0.2 Ur Leukocyte Esterase Negative Urine RBC 0-2 Urine WBC 0-2 Ur Squamous Epith Cells None Urine Bacteria None SARS-CoV-2 (PCR) Negative SARS-CoV-2 Influenza Type A (PCR) Negative PCR FLU A Influenza Type B (PCR) Negative PCR FLU B RSV (PCR) Negative PCR RSV POC Troponin I 0.00 L 04/21/24 05:56 WBC 8.36 RBC 3.65 L Hgb 10.9 L Hct 34.5 MCV 95 MCH 30 MCHC 32 RDW Coeff of [place]ba 13.1 Plt Count 208 Neut % (Auto) 72.8 H Lymph % (Auto) 15.2 L [place] % (Auto) 6.5 Eos % (Auto) 4.5 Baso % (Auto) 0.6 Neut # (Auto) 6.10 Lymph # (Auto) 1.30 [place] # (Auto) 0.50 Eos # (Auto) 0.38 Baso # (Auto) 0.05 Abs Immat Gran (auto) 0.03 Imm/Tot Granulo (auto) 0.4 INR 1.13 H D-Dimer Quant (PE/DVT) VBG pH VBG pCO2 VBG pO2 VBG HCO3 Sodium Potassium Chloride Carbon Dioxide Anion Gap BUN Creatinine Estimated Creat Clear Estimated GFR Glucose Calcium Magnesium Total Bilirubin 0.9 Direct Bilirubin 0.2 AST 25 ALT 16 Alkaline Phosphatase 66 Troponin I C-Reactive Protein 3.8 H NT-Pro-B Natriuret Pep Total Protein 5.7 L Albumin 3.3 Urine Color Urine Appearance Urine pH Ur Specific [place] Urine Protein Urine Glucose (UA) Urine Ketones Urine Blood Urine Nitrite Urine Bilirubin Urine Urobilinogen Ur Leukocyte Esterase Urine RBC Urine WBC Ur Squamous Epith Cells Urine Bacteria SARS-CoV-2 (PCR) Influenza Type A (PCR) Influenza Type B (PCR) RSV (PCR) POC Troponin I Diagnostic results Additional Comments: Abdomen and pelvis CT reviewed dated 04/20/24 from [facility]. This shows: no signs of acute injury or disease. No sign of hip fracture. 2-view right femur images were reviewed dated 04/20/24 from [facility]. This shows: no right femur fracture, specifically no distal femur fracture. Advanced degenerative changes right hip. Chondrocalcinosis right knee joint. Assessment and Plan Assessment and plan (1) Hypoxia: Status: Acute Total time spent: Total time spent is greater than 50% in coordination of care (as documented) at patient's floor/unit and/or counseling patient: (2) Hip pain: Status: Acute Assessment and Plan: Imaging listed above show no signs of an acute fracture. Patient denies groin pain and her physical exam is mostly benign. She denies right hip pain with movement of her right lower extremity. In comparison to Dr. Poole's exam, the location of her pain seems to change. Ruled out distal femur fracture. May consider right hip MRI to better evaluate for right hip fracture. I do not see any contraindications that would restrict Ingrid from full weightbearing status. She is able to weightbear as her pain allows. Also bilateral lower extremity DVT was ruled out (negative venous ultrasound 04/20/24). Total time spent: Total time spent is greater than 50% in coordination of care (as documented) at patient's floor/unit and/or counseling patient: (3) D-dimer, elevated: Status: Acute Total time spent: Total time spent is greater than 50% in coordination of care (as documented) at patient's floor/unit and/or counseling patient:
[2024-04-21 08:22] LABS: D Dimer Quantitative* 4.06 ug/ml (0.00-0.50)
[2024-04-21 08:36] VITALS: BP 121/61; PULSE 78; PULSE 82; RESP 20; TEMP 36.4; O2SAT 94
[2024-04-21] MEDS: ASPIRIN 81 MG TAB.CHEW PO (08:40)
[2024-04-21] MEDS: CALCIUM CARBONATE 500 MG TABLET 600 MG PO (08:41)
[2024-04-21] MEDS: MULTIVITAMIN/MINERALS 1 TABLET 1 TAB PO (08:42)
[2024-04-21] MEDS: lisinopriL 10 MG TABLET PO (08:42)
[2024-04-21] MEDS: METOPROLOL SUCCINATE (XL) 25 MG TAB PO (08:42)
[2024-04-21] MEDS: SODIUM CHLORIDE 0.9 % (FLUSH) 10 ML SYRINGE 5 ML IVF ×2 (08:43→20:53)
[2024-04-21] MEDS: CALCIUM CARBONATE 500 MG TABLET PO ×2 (09:29→20:53)
--- NOTE | 2024-04-21 10:32 | PM.IMPN1 ---
Progress Note: A&P Assessment and plan (1) Hip pain: Problem details: Pain is been somewhat variable in presentation. It has been reliably triggered by weight-bearing but otherwise exam of his strength and range of motion is relatively reassuring and relatively benign. Location of the pain has been in her right buttock and medial thigh primarily. Lumbar and hip CT and plain films of the hip and femur are unremarkable. Plan MRI of the hip tomorrow. Status: Acute (2) Hypoxia: Problem details: Hypoxia without dyspnea or other respiratory illness symptoms. Elevated D-dimer led to chest CT and lower extremity venous Dopplers which were both normal. Continue to monitor. Possibly due to undiagnosed sleep apnea. Status: Acute (3) D-dimer, elevated: Problem details: Improved today. Suspect this is due to and undiagnosed inflammatory condition. Status: Acute Plan Continue in hospital for evaluation and treatment of right hip pain and inability to ambulate. MRI tomorrow. Ongoing assessment of hypoxia and looking for underlying cardiopulmonary condition or inflammatory condition that would explain her current signs and symptoms. Time Spent With Patient Total time spent: Total time spent today is 40 minutes in evaluation and manage Subjective Date Seen: 04/21/24 Interval history: Ingrid Granger is a 83 year old female admitted to the hospital for right thigh and buttock pain following a fall at home. Patient reports she was doing well yesterday. She got during the night and fell injuring her right thigh/buttock area as well as her right elbow. After her fall she was unable to put weight on her right lower extremity. She is brought to the emergency room for this. She did not pass out. She tripped and fell. She did hit her head but did not lose consciousness. She reports no head or neck pain. Patient reports no previous problems with low back, right hip, pelvis, thigh or knee pain or injury similar to this. She is having no pain going down her leg except she does get pain in her medial thigh on the right with motion in her hip. She is not having numbness or weakness in her leg. She reports no loss of bowel or bladder control. She was noted to have hypoxia with O2 sats in the 80s in the emergency department. She reported no dyspnea and no other respiratory symptoms. She has a history of coronary disease but has not had any chest pain nocturnal dyspnea orthopnea. She is not having any exertional dyspnea. She does not have a history of asthma or COPD. She had a remote history of smoking and stopped when she was 28 years old. She does not recall ever being told that she had hypoxia. Not treated with inhalers. No history of PE or DVT. She has had no recent respiratory illness, cold, fever, cough. She had COVID last September when she was visiting in [place]. She did not get ill enough to be hospitalized at that time. April 21: Patient reports generally doing well when I see her. She is on a low-dose of supplemental oxygen but has no dyspnea. She reports no pain at rest but it hurts to bear weight on her right leg. She is someone uncertain as to the location of the pain when she is bearing weight so we have her stand to assess this. She points to her proximal medial thigh as the place it hurts the most when she is standing and walking. Her grand step son is an orthopedic surgeon at [employer]. Exam Narrative: Exam Narrative: She is alert and appears in no distress. She is breathing comfortably with supplemental oxygen. Respirations are clear to auscultation. Cardiovascular: S1, S2, regular rate and rhythm. Abdomen is soft without tenderness or mass. Palpation inspection of the back is unremarkable. Palpation over both hips is nontender palpation over her thigh and leg is nontender. Active and passive range of motion of the right hip and knee without significant discomfort. Strength testing also without significant discomfort when done in a seated position: Hip flexion , abduction and adduction without significant discomfort. Strength testing of the knee is 5/5 with flexion extension. No knee effusion no warmth or tenderness. Right calf and foot are nontender. Const: Vital Signs, click to edit/add: Vital Signs - 24 hr 04/20/24 10:45 04/20/24 11:00 04/20/24 11:15 Temperature Pulse Rate 70 68 66 Pulse Rate [Bilate ral Dorsalis Pedis ] Pulse Rate [Pulse Oximeter] Respiratory Rate Blood Pressure [Le ft Arm] Blood Pressure [Ri ght Arm] Blood Pressure [Ri ght Upper Arm] Pulse Oximetry 90 90 88 Oxygen Delivery Me thod Oxygen Flow Rate 04/20/24 11:18 04/20/24 12:09 04/20/24 12:35 Temperature 97.9 F Pulse Rate Pulse Rate [Bilate ral Dorsalis Pedis ] Pulse Rate [Pulse Oximeter] 66 Respiratory Rate 18 18 18 Blood Pressure [Le ft Arm] Blood Pressure [Ri ght Arm] 132/62 Blood Pressure [Ri ght Upper Arm] 133/60 Pulse Oximetry 89 90 90 Oxygen Delivery Me thod Room Air Room Air Room Air Oxygen Flow Rate 04/20/24 15:53 04/20/24 15:53 04/20/24 15:53 Temperature 97.9 F Pulse Rate Pulse Rate [Bilate ral Dorsalis Pedis ] Pulse Rate [Pulse Oximeter] 73 73 Respiratory Rate 20 20 20 Blood Pressure [Le ft Arm] 138/70 Blood Pressure [Ri ght Arm] Blood Pressure [Ri ght Upper Arm] Pulse Oximetry 91 91 Oxygen Delivery Me thod Room Air Room Air Oxygen Flow Rate 04/20/24 19:00 04/20/24 22:43 04/20/24 22:43 Temperature 98.4 F Pulse Rate Pulse Rate [Bilate ral Dorsalis Pedis ] Pulse Rate [Pulse Oximeter] 83 78 Respiratory Rate 20 20 20 Blood Pressure [Le ft Arm] 124/67 Blood Pressure [Ri ght Arm] Blood Pressure [Ri ght Upper Arm] Pulse Oximetry 90 88 Oxygen Delivery Me thod Room Air Room Air Oxygen Flow Rate 04/20/24 22:43 04/21/24 03:00 04/21/24 08:36 Temperature 98 F 98.2 F 97.6 F Pulse Rate Pulse Rate [Bilate ral Dorsalis Pedis ] 82 Pulse Rate [Pulse Oximeter] 78 78 Respiratory Rate 20 20 20 Blood Pressure [Le ft Arm] 123/59 L 161/64 H Blood Pressure [Ri ght Arm] 121/61 Blood Pressure [Ri ght Upper Arm] Pulse Oximetry 88 96 94 Oxygen Delivery Me thod Room Air Nasal Cannula Room Air Oxygen Flow Rate 2 04/21/24 08:36 04/21/24 08:36 Temperature Pulse Rate Pulse Rate [Bilate ral Dorsalis Pedis ] Pulse Rate [Pulse Oximeter] 78 Respiratory Rate 20 20 Blood Pressure [Le ft Arm] Blood Pressure [Ri ght Arm] Blood Pressure [Ri ght Upper Arm] Pulse Oximetry 94 Oxygen Delivery Me thod Room Air Oxygen Flow Rate Documenting provider has reviewed patient's vital signs: yes Labs Labs: Laboratory Results - last 24 hr 04/21/24 05:56 WBC 8.36 RBC 3.65 L Hgb 10.9 L Hct 34.5 MCV 95 MCH 30 MCHC 32 RDW Coeff of [place] 13.1 Plt Count 208 Neut % (Auto) 72.8 H Lymph % (Auto) 15.2 L [place] % (Auto) 6.5 Eos % (Auto) 4.5 Baso % (Auto) 0.6 Neut # (Auto) 6.10 Lymph # (Auto) 1.30 [place] # (Auto) 0.50 Eos # (Auto) 0.38 Baso # (Auto) 0.05 Abs Immat Gran (auto) 0.03 Imm/Tot Granulo (auto) 0.4 INR 1.13 H D-Dimer Quant (PE/DVT) 4.06 H Total Bilirubin 0.9 Direct Bilirubin 0.2 AST 25 ALT 16 Alkaline Phosphatase 66 C-Reactive Protein 3.8 H Total Protein 5.7 L Albumin 3.3
[2024-04-21 11:50] VITALS: BP 116/56; PULSE 72; RESP 22; TEMP 36.6; O2SAT 94
[2024-04-21] MEDS: OXYCODONE 5 MG TABLET 2.5 MG PO (11:55)
[2024-04-21 15:35] VITALS: BP 120/65; PULSE 80; RESP 16; TEMP 36.6; O2SAT 92
[2024-04-21 19:00] VITALS: BP 150/60; PULSE 73; RESP 16; TEMP 37.1; O2SAT 92
--- NOTE | 2024-04-21 19:11 | PC.NURSE ---
End of Shift: Patient pleasant and cooperative. Patient vitally stable, lungs clear, BS, WNL, IV SL and intact. Patient has rated pain 0/10 with this proposal writer, tylenol given x2 and oxy 5 mg given once. Patient 1 assist,walker, gb. Patient did ambulate to the bathroom and back to the chair with this proposal writer. Patient up to the chair x2. Patient tolerating regular diet but does not have much of an appetite.
[2024-04-21] MEDS: ATORVASTATIN 10 MG TABLET 20 MG PO (20:53)
[2024-04-21] MEDS: ENOXAPARIN 30 MG/0.3ML INJ SUBCUT (20:53)
[2024-04-21] MEDS: MIRTAZAPINE 15 MG TABLET PO (20:53)
[2024-04-21 21:59] VITALS: BP 148/72; PULSE 75; RESP 16; TEMP 36.6; O2SAT 91; O2SAT 92
[2024-04-22] VITALS (7 sets, daily range): BP systolic 122–146; BP diastolic 52–69; PULSE 63–83; RESP 16–22; TEMP 36.6–36.8; O2SAT 85–95
--- NOTE | 2024-04-22 04:52 | PC.NURSE ---
Shift note:Pt is alert and oriented 3x, able to make needs known. Minimal pain reported. Pt ambulated slowly with A1 to and from BR. Skin tear to the right elbow open to air. Pt has adequate sleep. Vitally stable.
[2024-04-22 06:26] LABS: HCO3 VBG 29 mmol/L (21-28); PCO2 VBG 40 mmHG (40-50); PO2 VBG < 30.1 mmHG (25-47); pH VBG 7.477 (7.32-7.43)
[2024-04-22] MEDS: LEVOTHYROXINE 25 MCG TABLET PO (06:34)
[2024-04-22 06:56] LABS: C Reactive Protein* 4.1 mg/dL (0.5-1.0)
--- NOTE | 2024-04-22 07:00 | CRLHL7_ITS ---
For Patients: As a result of the Century Cures Act, medical imaging exams and procedure reports are released immediately into your electronic medical record. You may view this report before your referring provider. If you have questions, please contact your health care provider. CLINICAL INDICATION: Right hip pain and injury. COMPARISON IMAGING STUDIES: Radiographs from 04/20/2024. TECHNICAL: Axial, sagittal and coronal PDFS small field of view images of the right hip. Coronal and axial T1 and PDFS large field of view images of the entire pelvis. 1.5 Trista MR scanner. FINDINGS: RIGHT HIP: Degenerative arthrosis of the right hip. There is high-grade, up to full-thickness articular cartilage wear with small areas of subchondral bone marrow edema present (grade 4). Small amount of right hip joint fluid. Degenerative acetabular labral tearing. LEFT HIP: Degenerative changes of the left hip. Small amount of left hip joint fluid. There is likely moderate to high-grade cartilage wear superior medially (grade 2/3). OSSEOUS STRUCTURES: Nondisplaced fracture of the medial right pubic bone with associated bone marrow edema. There is a minimally displaced fracture of the right sacral ala. No proximal femoral or acetabular fracture on either side. The lesion involving the right femoral head posteriorly demonstrates a rind of fat signal about its periphery and is therefore more likely benign. It measures approximately 2 centimeters in size. MUSCULOTENDINOUS STRUCTURES AND BURSAE: There are areas of fatty replacement of the gluteus minimus and medius muscles bilaterally compatible with chronic strain changes. There is chronic high-grade tearing of the distal gluteus minimus tendons bilaterally. Lower grade changes of the gluteus medius tendons bilaterally. A small amount of peritrochanteric fluid is present bilaterally. Tendinosis and chronic partial tearing of the right greater than left common hamstring tendons. Distal iliopsoas tendons are intact. Interstitial muscle edema involving the right-sided adductor musculature suggesting either reactive muscle edema from the adjacent fracture or strain changes. OTHER FINDINGS: Degenerative changes within the spine. Degenerative changes of the sacroiliac joints. Degenerative changes of the pubic symphysis. INTRAPELVIC CONTENTS: Small bilateral fat containing inguinal hernias. Distended urinary bladder. IMPRESSION: 1. Acute nondisplaced fracture of the medial right pubic bone. 2. Acute minimally displaced fracture of the right sacral ala. 3. Chronic strain changes involving the gluteal musculature with muscle atrophy. Small amount of peritrochanteric fluid bilaterally. 4. Tendinosis of the common hamstring tendons with cytbj-[id number]-tddc-left chronic partial tearing. 5. Reactive muscle edema versus strain involving right-sided adductor musculature. 6. Degenerative changes. Dictated by Greg Manuel MD @ 04/22/2024 9:48:42 AM (Electronically Signed)
[2024-04-22 07:41] LABS: Erythrocyte SedimentationRate* 19 mm/hr (2-20)
[2024-04-22] MEDS: OXYCODONE 5 MG TABLET 2.5 MG PO ×4 (08:12→23:00)
[2024-04-22] MEDS: SODIUM CHLORIDE 0.9 % (FLUSH) 10 ML SYRINGE 5 ML IVF ×2 (09:08→20:33)
[2024-04-22] MEDS: ASPIRIN 81 MG TAB.CHEW PO (09:09)
[2024-04-22] MEDS: METOPROLOL SUCCINATE (XL) 25 MG TAB PO (09:09)
[2024-04-22] MEDS: lisinopriL 10 MG TABLET PO (09:09)
[2024-04-22] MEDS: CALCIUM CARBONATE 500 MG TABLET PO ×2 (09:10→20:28)
[2024-04-22] MEDS: MULTIVITAMIN/MINERALS 1 TABLET 1 TAB PO (09:10)
--- NOTE | 2024-04-22 14:07 | P.IMPN_ITS ---
Progress Note: A&P Assessment and plan (1) Hip pain: Problem details: Pain is been somewhat variable in presentation. It has been reliably triggered by weight-bearing but otherwise exam of his strength and range of motion is relatively reassuring and relatively benign. Location of the pain has been in her right buttock and medial thigh primarily. MRI of the hip shows sacral fracture and pubic fracture which explain her pain Status: Acute (2) Hypoxia: Problem details: Hypoxia without dyspnea or other respiratory illness symptoms. Elevated D-dimer led to chest CT and lower extremity venous Dopplers which were both normal. Continue to monitor. Possibly due to undiagnosed sleep apnea. Continues to be asymptomatic Status: Acute (3) D-dimer, elevated: Problem details: Improved today. Suspect this is due to and undiagnosed inflammatory condition. Not clinically apparent Status: Acute (4) Pubic bone fracture: Problem details: Nondisplaced. Conservative management Status: Acute (5) Sacral fracture: Problem details: Nondisplaced. Conservative management Status: Acute (6) Disability: Problem details: Able to walk but still needs standby assistance. Looking for discharge plan with 24/04 availability of help Status: Acute Plan Continue in hospital pending discharge plan. Plans discussed with patient and family. Total time spent today is 35 minutes in coordination of care discussing ongoing plan of care Subjective Date Seen: 04/22/24 Interval history: Ingrid Granger is a 83 year old female admitted to the hospital for right thigh and buttock pain following a fall at home. Patient reports she was doing well yesterday. She got during the night and fell injuring her right thigh/buttock area as well as her right elbow. After her fall she was unable to put weight on her right lower extremity. She is brought to the emergency room for this. She did not pass out. She tripped and fell. She did hit her head but did not lose consciousness. She reports no head or neck pain. Patient reports no previous problems with low back, right hip, pelvis, thigh or knee pain or injury similar to this. She is having no pain going down her leg except she does get pain in her medial thigh on the right with motion in her hip. She is not having numbness or weakness in her leg. She reports no loss of bowel or bladder control. She was noted to have hypoxia with O2 sats in the 80s in the emergency department. She reported no dyspnea and no other respiratory symptoms. She has a history of coronary disease but has not had any chest pain nocturnal dyspnea orthopnea. She is not having any exertional dyspnea. She does not have a history of asthma or COPD. She had a remote history of smoking and stopped when she was 28 years old. She does not recall ever being told that she had hypoxia. Not treated with inhalers. No history of PE or DVT. She has had no recent respiratory illness, cold, fever, cough. She had COVID last September when she was visiting in [place]. She did not get ill enough to be hospitalized at that time. April 21: Patient reports generally doing well when I see her. She is on a low-dose of supplemental oxygen but has no dyspnea. She reports no pain at rest but it hurts to bear weight on her right leg. She is someone uncertain as to the location of the pain when she is bearing weight so we have her stand to assess this. She points to her proximal medial thigh as the place it hurts the most when she is standing and walking. Her granddaughter's is an orthopedic surgeon at [employer]. April 22: Patient reports ongoing back pain but improving her ability to walk with a walker. She still needing standby assistance. She reports no other concern at this time. MRI obtained today shows: 1. Acute nondisplaced fracture of the medial right pubic bone. 2. Acute minimally displaced fracture of the right sacral ala. 3. Chronic strain changes involving the gluteal musculature with muscle atrophy. Small amount of peritrochanteric fluid bilaterally. 4. Tendinosis of the common hamstring tendons with xtftf-[id number]-wsqu-left chronic partial tearing. 5. Reactive muscle edema versus strain involving right-sided adductor musculature. 6. Degenerative changes. Exam Narrative: Exam Narrative: She is alert and appears in no distress. Breathing is unlabored. She is observed to move fairly well with a walker and standby assist. Const: Vital Signs, click to edit/add: Vital Signs - 24 hr 04/21/24 15:35 04/21/24 15:35 04/21/24 15:35 Temperature 97.9 F Pulse Rate [Pulse Oximeter] 80 80 Respiratory Rate 16 16 16 Blood Pressure [Le ft Arm] 120/65 Blood Pressure [Ri ght Arm] Pulse Oximetry 92 92 Oxygen Delivery Me thod Room Air Room Air Oxygen Flow Rate 04/21/24 19:00 04/21/24 21:59 04/21/24 21:59 Temperature 98.7 F Pulse Rate [Pulse Oximeter] 73 75 Respiratory Rate 16 16 16 Blood Pressure [Le ft Arm] Blood Pressure [Ri ght Arm] 150/60 H Pulse Oximetry 92 91 Oxygen Delivery Me thod Room Air Nasal Cannula Oxygen Flow Rate 1 04/21/24 21:59 04/22/24 02:15 04/22/24 07:00 Temperature 98 F 98 F Pulse Rate [Pulse Oximeter] 75 63 68 Respiratory Rate 16 16 18 Blood Pressure [Le ft Arm] 148/72 H 140/66 H Blood Pressure [Ri ght Arm] Pulse Oximetry 92 91 Oxygen Delivery Me thod Nasal Cannula Nasal Cannula Oxygen Flow Rate 1 1 04/22/24 07:00 04/22/24 07:00 04/22/24 07:30 Temperature 97.8 F Pulse Rate [Pulse Oximeter] 68 Respiratory Rate 18 16 Blood Pressure [Le ft Arm] 146/69 H Blood Pressure [Ri ght Arm] Pulse Oximetry 85 L 85 L 92 Oxygen Delivery Me thod Room Air Room Air Nasal Cannula Oxygen Flow Rate 2 04/22/24 11:00 Temperature 98.1 F Pulse Rate [Pulse Oximeter] 82 Respiratory Rate 18 Blood Pressure [Le ft Arm] 122/52 L Blood Pressure [Ri ght Arm] Pulse Oximetry 92 Oxygen Delivery Me thod Room Air Oxygen Flow Rate Documenting provider has reviewed patient's vital signs: yes Labs Labs: Laboratory Results - last 24 hr 04/22/24 06:20 ESR 19 VBG pH 7.477 H VBG pCO2 40 VBG pO2 < 30.1 VBG HCO3 29 H C-Reactive Protein 4.1 H
--- NOTE | 2024-04-22 14:43 | PC.NURSE ---
End of shift [id number]: Pt has been A&O, afebrile and VSS today. She was slightly hypoxic this morning with an SpO2 of 85% on RA so she was placed on 1L NC which brought her to 91-92%. She had c/o severe LL cramping this morning in which PRN oxycodone given @ 0810 & she reported adequate relief. Ongoing back pain and right buttock/thigh pain. Denies any N/V or dizziness. MRI today showed a nondisplaced pubic fracture and a displaced sacral fracture on the right side. PIV in left AC is SL and C/D/I. 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 ?SW to arrange discharge as pt is needing TCU placement for rehab. Her son, Valdo, was here for majority of the morning and is in agreement with this plan. ?
--- NOTE | 2024-04-22 15:16 | PC.SOCIAL ---
Addendum entered by ADDISON Quiroga 04/22/24 16:16: Patient will have to private pay $10,000 upon admission. Provided information to patient's son. Addendum entered by ADDISON Quiroga 04/22/24 16:15: Patient has been accepted to both [facility] (private room) and [facility] (private room) for tomorrow. Phone call to patient's son, Valdo, and provided update. Patient's son would like to accept the bed at [facility]. Family will transport. Patient's son will call social work back with a transport time. Provided update to charge nurse, and Janna Rice at [facility]. Original Note: Discharge planning- Per therapy, patient would benefit from SNF for rehab. Patient is in observation, so would have to private pay. Patient currently lives at [facility] in Independent Living with no services. Patient may possibly return with services or assistance in place. Therapy is recommending 24 hour care. Patient is standby assist. Met with patient and patient's son, Valdo, and discussed options for discharge. Patient and patient's son are interested in pursuing SNF and private pay. Patient's son would like information if there are openings at [facility], [facility], and [facility]. Valdo will follow up with [facility] on increased services. Per patient, patient would feel more comfortable at a care home with a higher level of care for the short-term. Contacted the following SNF's. 1. [facility]- E-mail to Janna Rice in admissions, there are openings. Secure e-mailed referral for review. 2. [facility]- E-mail to Rafaela Jeffries in admissions, there are openings. Secure e-mailed referral for review. 3. [facility]- E-mail to Maria Teresa Gonzales in admissions. There are openings. Will hold off on sending referral due to distance- Patient would like to be closer to [place]. Provided update to patient's son Valdo. Social work will continue to follow up as needed.
[2024-04-22] MEDS: ATORVASTATIN 10 MG TABLET 20 MG PO (20:28)
[2024-04-22] MEDS: MIRTAZAPINE 15 MG TABLET PO (20:28)
[2024-04-22] MEDS: ENOXAPARIN 30 MG/0.3ML INJ SUBCUT (20:29)
[2024-04-22] MEDS: MELATONIN 3 MG TABLET PO (20:29)
[2024-04-23] MEDS: ACETAMINOPHEN 325 MG TABLET 650 MG PO ×2 (02:12→08:35)
[2024-04-23] MEDS: OXYCODONE 5 MG TABLET PO ×2 (02:13→04:38)
[2024-04-23 02:22] VITALS: BP 121/57; PULSE 63; RESP 18; TEMP 36.8; O2SAT 93
--- NOTE | 2024-04-23 05:54 | PC.NURSE ---
End of shift [id number]: Pleasant and cooperative with cares. Pain to right hip well managed, patient reporting increased pain to left anterior thigh, pain 7/10 with minimal relief from oxycodone. Warm pack applied to thigh for comfort. Patient states that it feels like spasms in her thigh versus actual pain. Patient able to rest intermittently through the night. Transfers with Ax1-SBA with walker and gait belt, weight bearing as tolerated.
[2024-04-23] MEDS: LEVOTHYROXINE 25 MCG TABLET PO (06:27)
[2024-04-23 07:00] VITALS: BP 138/69; PULSE 65; RESP 16; TEMP 36.6; O2SAT 93
[2024-04-23 07:22] LABS: C Reactive Protein* 3.1 mg/dL (0.5-1.0)
[2024-04-23] MEDS: MULTIVITAMIN/MINERALS 1 TABLET 1 TAB PO (08:35)
[2024-04-23] MEDS: lisinopriL 10 MG TABLET PO (08:35)
[2024-04-23] MEDS: ASPIRIN 81 MG TAB.CHEW PO (08:35)
[2024-04-23] MEDS: METOPROLOL SUCCINATE (XL) 25 MG TAB PO (08:35)
[2024-04-23] MEDS: SENNOSIDES/DOCUSATE TABLET 2 TAB PO (08:35)
[2024-04-23] MEDS: CALCIUM CARBONATE 500 MG TABLET PO (08:35)
[2024-04-23] MEDS: SODIUM CHLORIDE 0.9 % (FLUSH) 10 ML SYRINGE 5 ML IVF (08:36)
--- NOTE | 2024-04-23 09:54 | PC.SOCIAL ---
Discharge planning- Patient will discharge to [facility] today. Phone call to patient's son, Valdo, to get an update on transport time. Patient's son will transport patient at 11:30 am. Provided update to [facility]. Completed preadmission screening. Confirmation #[id number]. Secure e-mailed discharge orders and PAS to Janna Rice at [facility]. Social work will follow up as needed.
[2024-04-23 11:00] VITALS: BP 132/62; PULSE 62; RESP 14; TEMP 36.7; O2SAT 94
--- NOTE | 2024-04-23 12:03 | PC.NURSE ---
Nursing discharge note: Pt has been A&O, afebrile and VSS on day of discharge. She required 1L NC overnight for hypoxia & it was removed this morning before OT her SpO2 read 93% on RA. Pt reports having pain in left thigh, describing it as muscle cramps. Pain in right hip is 3/10 today. PRN Tylenol given @ 0835. PIV in left AC discontinued, catheter intact. Pt denies any nausea or dizziness. Tolerated therapies well. She is SBA with gait belt & 2ww for ambulation and transfers. 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 Discharge instructions were reviewed with patient and her son who both verbalized understanding. She was discharged to [facility] via W/C accompanied by daughter in law at 1155. Nurse-nurse report was provided to Karyna at [facility]. ?
--- NOTE | 2024-04-28 18:51 | PM.DS1 ---
DS: Providers Provider Date Seen: 04/28/24 Date of admission: 04/20/24 11:32 Primary care physician: Natalia Everett DO Admitting Clinician: Luis Poole MD Attending Physician on discharge: Luis Poole MD Date of Discharge: 04/23/24 DS: Diagnosis Discharge Diagnosis (1) Pubic bone fracture: Status: Acute Problem details: Nondisplaced. Conservative management (2) Sacral fracture: Status: Acute Problem details: Nondisplaced. Conservative management (3) Disability: Status: Acute Problem details: Able to walk but still needs standby assistance. (4) Hypoxia: Status: Resolved Problem details: Hypoxia without dyspnea or other respiratory illness symptoms. Elevated D-dimer led to chest CT and lower extremity venous Dopplers which were both normal. No other signs or symptoms of cardiorespiratory illness. Possibly due to undiagnosed sleep apnea. Continues to be asymptomatic DS: Summary Hospital Course Hospital Course: Ingrid Granger is a 83 year old female admitted to the hospital for right thigh and buttock pain following a fall at home. Patient reports she was doing well yesterday. She got during the night and fell injuring her right thigh/buttock area as well as her right elbow. After her fall she was unable to put weight on her right lower extremity. She is brought to the emergency room for this. She did not pass out. She tripped and fell. She did hit her head but did not lose consciousness. She reports no head or neck pain. Patient reports no previous problems with low back, right hip, pelvis, thigh or knee pain or injury similar to this. She is having no pain going down her leg except she does get pain in her medial thigh on the right with motion in her hip. She is not having numbness or weakness in her leg. She reports no loss of bowel or bladder control. She was noted to have hypoxia with O2 sats in the 80s in the emergency department. She reported no dyspnea and no other respiratory symptoms. She has a history of coronary disease but has not had any chest pain nocturnal dyspnea orthopnea. She is not having any exertional dyspnea. She does not have a history of asthma or COPD. She had a remote history of smoking and stopped when she was 28 years old. She does not recall ever being told that she had hypoxia. Not treated with inhalers. No history of PE or DVT. She has had no recent respiratory illness, cold, fever, cough. She had COVID last September when she was visiting in [place]. She did not get ill enough to be hospitalized at that time. April 21: Patient reports generally doing well when I see her. She is on a low-dose of supplemental oxygen but has no dyspnea. She reports no pain at rest but it hurts to bear weight on her right leg. She is someone uncertain as to the location of the pain when she is bearing weight so we have her stand to assess this. She points to her proximal medial thigh as the place it hurts the most when she is standing and walking. Her granddaughter's is an orthopedic surgeon at [employer]. April 22: Patient reports ongoing back pain but improving her ability to walk with a walker. She still needing standby assistance. She reports no other concern at this time. MRI obtained today shows: 1. Acute nondisplaced fracture of the medial right pubic bone. 2. Acute minimally displaced fracture of the right sacral ala. 3. Chronic strain changes involving the gluteal musculature with muscle atrophy. Small amount of peritrochanteric fluid bilaterally. 4. Tendinosis of the common hamstring tendons with huhdq-cqfdcqv-ecdc-left chronic partial tearing. 5. Reactive muscle edema versus strain involving right-sided adductor musculature. 6. Degenerative changes. April 23: Pain and mobility are modestly improved today. Status at Discharge Functional status at discharge: uses cane/walker Overall status at discharge: patient is progressing back to baseline Time Spent with Patient Time attestation: Total time spent providing and/or coordinating discharge services: Time spent: Less than 30 minutes Exam Narrative: Exam Narrative: She is alert and in no distress. Breathing comfortably on room air. Observed to ambulate fairly well witha walker and standby assistance. Const: Documenting provider has reviewed patient's vital signs: yes Discharge Plan Discharge Disposition: [facility] Date of Admission: 04/20/24 11:32 Attending Provider on Discharge: Luis Poole Primary Care Provider: Natalia Everett Anticipated Discharge Date/Time: 04/23/24 10:00 Discharge Medications: New sennosides [senna] 8.6 mg tablet 17.2 mg PO BID Qty: 30 0RF oxycodone 5 mg tablet 2.5 - 5 mg PO Q4H PRN (Reason: pain) Qty: 30 0RF Continued acetaminophen 500 mg tablet 500 mg PO Q6H PRN aspirin 81 mg tablet,chewable 81 mg PO DAILY atorvastatin 20 mg tablet 20 mg PO HS cholecalciferol (vitamin D3) 25 mcg (1,000 unit) capsule 1,000 unit PO DAILY levothyroxine 25 mcg capsule 25 mcg PO DAILY metoprolol succinate 25 mg tablet extended release 24 hr 25 mg PO DAILY mirtazapine 15 mg tablet 15 mg PO QHS multivitamin [Daily Multi-Vitamin] Tablet 1 tab PO DAILY omeprazole 40 mg capsule,delayed release(DR/EC) 40 mg PO DAILY PRN Rx Instructions: TAKES SOMETIMES, HAS TROUBLE SWALLOWING lisinopril 10 mg tablet 10 mg PO DAILY calcium carbonate [Calcium 600] 600 mg calcium (1,500 mg) tablet 600 mg PO BID Discharge Orders: Discharge Order (Routine); Ordered 04/23/24 Ordered By: Luis Poole Activity Level: Activity as Tolerated, Up with assist and Use Walker Discharge Diet: Regular Follow Up Appointments: [facility] [Outside] (Patient is moving to [facility].) Natalia Everett DO [Primary Care Provider] - Forms: [facility] Info Instructions Admit to: SNF Discharge Potential: Good Length of Stay: <30 days Can use facility standing orders?: Yes Rehab Potential: Good Therapy: Physical Therapy and Occupational Therapy Therapy Orders: Evaluate and Treat Oxygen: Yes Oxygen Delivery Method: Nasal Cannula Oxygen Flow Rate: 0-1 L/NC as needed for oxygen saturation less than 90% Urinary Catheter: No
== END 2024-04-23 11:55 ==
LOC: ED 08:44 → MEDSURG 11:32
PROVIDERS: Family Medicine; Admitting Provider Family Medicine; Emergency Provider Emergency Medicine; PCP Family Medicine; Visit Provider Family Medicine
DX: S32.509A Unspecified fracture of unspecified pubis, initial encounter for closed fracture (principal); S32.10XA Unspecified fracture of sacrum, initial encounter for closed fracture; S51.011A Laceration without foreign body of right elbow, initial encounter; R79.89 Other specified abnormal findings of blood chemistry; R09.02 Hypoxemia; M25.559 Pain in unspecified hip; I25.10 Atherosclerotic heart disease of native coronary artery without angina pectoris; H26.9 Unspecified cataract; M85.89 Other specified disorders of bone density and structure, multiple sites; E78.5 Hyperlipidemia, unspecified; I10 Essential (primary) hypertension; E03.9 Hypothyroidism, unspecified; Z87.19 Personal history of other diseases of the digestive system; Z95.1 Presence of aortocoronary bypass graft; Z98.890 Other specified postprocedural states
CPT/HCPCS: 36415; 70450; 71045; 71275; 72131; 73502; 73552; 73721; 74177; 80048; 80076; 81001; 82803; 83735; 83880; 84484; 85025; 85379; 85610; 85651; 86140; 87631; 93005; 93970; 94761; 96360; 96361; 96372; 97110; 97116; 97162; 97165; 97530; 97535; 99284; 99285; A9153; A9270; G0378; J1650; J7030; Q9967

== ENCOUNTER 2024-05-29 14:11 | Inpatient (IN) | payer MEDICARE, OTHER, BC, SELFPAY ==
[2024-05-29] VITALS (32 sets, daily range): BP systolic 59–111; BP diastolic 38–76; PULSE 52–176; RESP 18–20; TEMP 35.7–35.8; O2SAT 93–100; BMI 21.1; BMI 22.2
--- NOTE | 2024-05-29 14:36 | ED_ITS ---
HPI - Arrhythmia/Palpitations General Time Seen by Provider: 14:36 Date Seen: 05/29/24 Chief Complaint: Arrhythmia/Palpitations Stated Complaint: irregular heartbeat Time Seen by Provider: 05/29/24 14:35 Source: patient and RN notes reviewed Mode of arrival: ambulatory Limitations: no limitations History of Present Illness HPI narrative: This 83-year-old female is coming in to the ER with concern of shaky feeling. She notes that around noon today she felt like her heart rate went fast for few beats. She started to have a shaky feeling. She feels shaky and not necessarily that her heart rate is fast. She is having no chest pain, no dyspnea, no shortness of breath. She has not been ill or sick with anything, denies any cough or cold symptoms. She denies any abdominal symptoms with this. She does have a history of atrial fibrillation, states she had isolated episodes in 2009 and 2010. She was in the ER with 1 of these in the palliative senior np jumped up and declared that she had converted. She is not chronically anticoagulated. Related Data Home Medications ?Medication ?Instructions ?Recorded ?Confirmed acetaminophen 500 mg tablet 500 mg PO Q6H PRN 11/07/22 05/29/24 aspirin 81 mg chewable tablet 81 mg PO DAILY 11/07/22 05/29/24 atorvastatin 20 mg tablet 20 mg PO HS 11/07/22 05/29/24 cholecalciferol (vitamin D3) 25 1,000 unit PO DAILY 11/07/22 05/29/24 mcg (1,000 unit) capsule levothyroxine 25 mcg capsule 25 mcg PO DAILY 11/07/22 05/29/24 metoprolol succinate 25 mg 25 mg PO DAILY 11/07/22 05/29/24 tablet,extended release 24 hr calcium carbonate (Calcium 600) 600 mg PO BID 04/20/24 05/29/24 omeprazole 40 mg capsule,delayed 40 mg PO DAILY PRN 04/20/24 05/29/24 release omeprazole 05/29/24 Allergies Allergy/AdvReac Type Severity Reaction Status Date / Time Penicillins Allergy Unknown Verified 04/20/24 07:36 Sulfa (Sulfonamide Allergy Unknown Verified 04/20/24 07:36 Antibiotics) Review of Systems Status of ROS: Reports: 6 or more systems reviewed and unremarkable except as noted in History and below PFSH FOR[facility]LY [facility] Medical History (Updated 05/29/24 @ 16:24 by Charlotte Cash MD) Alcohol abuse ?F10.10 - Alcohol abuse, uncomplicated (ICD-10) Coronary artery disease ?I25.10 - Atherosclerotic heart disease of creek coronary artery without angina pectoris (ICD-10) Cataract ?H26.9 - Unspecified cataract (ICD-10) Osteopenia of multiple sites ?M85.89 - Other specified disorders of bone density and structure, multiple sites (ICD-10) Episodic atrial fibrillation ?I48.0 - Paroxysmal atrial fibrillation (ICD-10) Acquired hyperlipoproteinemia ?E78.5 - Hyperlipidemia, unspecified (ICD-10) Essential (primary) hypertension ?I10 - Essential (primary) hypertension (ICD-10) Hypothyroidism ?E03.9 - Hypothyroidism, unspecified (ICD-10) Surgical History History of repair of hiatal hernia ?Z98.890 - Other specified postprocedural states (ICD-10) ?Z87.19 - Personal history of other diseases of the digestive system (ICD-10) S/P CABG x 3 ?Z95.1 - Presence of aortocoronary bypass graft (ICD-10) Social History Narrative: She lives in independent apartment at [facility]. Her son Valdo is here with her today. Remote history of cigarette smoking, quit at age 28. History of alcohol abuse but none in at least 12 years. What is your current living situation?: I presently have a place to live Problems where you live: no known problems Problems where you live details: n/a In the past 12 months, utilities in danger of being shut off: no In past 12 months, lack of transportation kept you from medical appts, meetings, work, or getting things needed for daily living: no In the past 12 mos, have been you worried that your food would run out before you had money to buy more?: never true In the past 12 mos, the food you bought just didn't last and you didn't have money to buy more?: never true Highest level of school completed/degree received: Bachelor's degree Smoking Status: Former smoker Do you use any of these nicotine containing products: None Second hand tobacco smoke exposure: No How often do you have a drink containing alcohol: never How often do you have six or more drinks on one occasion: Never AUDIT-C Alcohol total score: 0 Non-prescribed substance use: denies use Caffeine: Yes (1 cup) How often does anyone, including family, friends and others, physically hurt you : never How often does anyone, including family, friends and others, insult or talk down to you: never How often does anyone, including family, friends and others, threaten you with harm: never How often does anyone, including family, friends and others, scream or curse at you: never service: No Exam Const: Vital Signs, click to edit/add: Vital Signs - 24 hr 05/29/24 14:20 05/29/24 14:25 05/29/24 14:26 Temperature 96.4 F L Pulse Rate 140 H 121 H Pulse Rate [Pulse Oximeter] 176 H Respiratory Rate 20 Blood Pressure 111/76 Blood Pressure [Le ft Upper Arm] 111/76 Pulse Oximetry 97 96 97 Oxygen Delivery Me thod Room Air 05/29/24 14:30 05/29/24 14:41 05/29/24 14:45 Temperature Pulse Rate 123 H 127 H Pulse Rate [Pulse Oximeter] Respiratory Rate Blood Pressure Blood Pressure [Le ft Upper Arm] Pulse Oximetry 97 96 98 Oxygen Delivery Me thod 05/29/24 15:00 05/29/24 15:15 05/29/24 15:30 Temperature Pulse Rate 90 92 91 Pulse Rate [Pulse Oximeter] Respiratory Rate Blood Pressure Blood Pressure [Le ft Upper Arm] Pulse Oximetry 96 99 97 Oxygen Delivery Me thod 05/29/24 15:45 05/29/24 15:52 05/29/24 15:54 Temperature Pulse Rate 118 H 101 H Pulse Rate [Pulse Oximeter] Respiratory Rate Blood Pressure 74/58 L 85/59 L Blood Pressure [Le ft Upper Arm] Pulse Oximetry 97 96 Oxygen Delivery Me thod 05/29/24 16:01 05/29/24 16:08 05/29/24 16:10 Temperature Pulse Rate 98 Pulse Rate [Pulse Oximeter] Respiratory Rate Blood Pressure 84/68 L 79/59 L 86/65 L Blood Pressure [Le ft Upper Arm] Pulse Oximetry 98 Oxygen Delivery Nm thod 05/29/24 16:11 05/29/24 16:13 05/29/24 16:15 Temperature Pulse Rate 118 H 120 H 96 Pulse Rate [Pulse Oximeter] Respiratory Rate Blood Pressure 90/59 L Blood Pressure [Le ft Upper Arm] Pulse Oximetry 100 97 98 Oxygen Delivery Me thod 05/29/24 16:16 05/29/24 16:18 05/29/24 16:22 Temperature Pulse Rate 156 H 121 H 107 H Pulse Rate [Pulse Oximeter] Respiratory Rate Blood Pressure 103/61 86/56 L Blood Pressure [Le ft Upper Arm] Pulse Oximetry 93 96 Oxygen Delivery Me thod 05/29/24 16:25 05/29/24 16:26 05/29/24 16:29 Temperature Pulse Rate 106 H 114 H Pulse Rate [Pulse Oximeter] Respiratory Rate Blood Pressure 59/43 L 88/52 L 60/49 L Blood Pressure [Le ft Upper Arm] Pulse Oximetry 99 99 Oxygen Delivery Me thod 05/29/24 16:30 05/29/24 16:33 05/29/24 16:34 Temperature Pulse Rate 98 106 H 114 H Pulse Rate [Pulse Oximeter] Respiratory Rate Blood Pressure 82/65 L 86/51 L Blood Pressure [Le ft Upper Arm] Pulse Oximetry 98 99 99 Oxygen Delivery Me thod Documenting provider has reviewed patient's vital signs: yes Course Course ED Course: This patient has atrial fibrillation with RVR, rate is quite high. EKG has some ischemic appearing changes but patient is asymptomatic as far as that goes. Will work on rate control, will give her initial IV bolus of 5 mg metoprolol. Will get full complement of labs as well as chest x-ray. Reevaluation(s) Time of Reevaluation #1: 15:41 Reevaluation #1: Went in to review with patient my conversation with Cardiology. She was sleeping, when she awoke, heart rate went back up into the 120s 130s, atrial fibrillation on the monitor. Thus, will give her another 5 mg IV metoprolol. S he is still hemodynamically stable, no chest pain, no shortness of breath. Will work on increasing her metoprolol. She unfortunately still is on controlled as far as rate. They also understand that there is a stroke risk and she certainly is elevated for this above the population on her chads Vasc score. She was just hospitalized in April for a fall with some pelvic fractures. Prior to that she maybe had a fall on Memorial weekend. This does complicate the issue, need to weigh the benefit to a bleeding verses stroke risk. She is going to need hospitalization, her son wanted to know foot would be observation or admission. I will discuss this with the hospitalist further. Time of Reevaluation #2: 15:56 Reevaluation #2: Nursing staff went to give the 2nd 5 mg IV bolus of metoprolol that patient's systolic pressures are in the 80s to 90s. She is not symptomatic from this. We will give her another 250 mg IV fluid bolus for a total of 500 mL. IA will subsequently ordered 250 mcg IV digoxin to work on rate control. She does have brief episodes where she is dropping to 90 and 112 but then rapidly went back up in the 120s to 130s. Time of Reevaluation #3: 17:13 Reevaluation #3: Patient's current blood pressure prior to transfer to the floor is 86/51. She is reportedly talking, conversive. She does not feel lightheaded, not dizzy, it is essentially asymptomatic. Her blood pressure prior to getting the metoprolol was only 111 systolic. At this time, I think it is prudent to watch this patient clinically. I would not recommend IV pressors or cardioversion given her stability. IV pressors would be detrimental and could increase her heart rate. Her digoxin dose could be upped some but will leave this to the hospitalists further loading of the digoxin further. Again this patient is stable clinically. Consultations Consultation #1: Did speak with Dr. Ortega at [facility] on-call for Cardiology. When we were reviewing her case, her most recent vitals showed her pulse to be 90. He recommended that we would just increase her oral metoprolol, get an outpatient ZIO patch and have her get an outpatient echo. He did recommend anticoagulation as her chads Vasc was at least 3 which would be elevated. Did review with him that she had a fall and was hospitalized last month. He he does agree with having the discussion with the patient and her son regarding anticoagulation, risks versus benefits. Time: 15:28 Consultation #2: Did speak with hospitalist Dr. Cash. Reviewed the case. She will discuss anticoagulation verses no anticoagulation with them. She agrees to accept this patient's care. Did review with her the most recent low blood pressure, the 2nd fluid bolus and the 1st dose of IV digoxin at 250 mcg being given. Time: 16:02 Vital Signs Vital signs: Initial Vital Signs Temperature 96.4 F L 05/29/24 14:20 Temperature Source Temporal Artery Scan 05/29/24 14:20 Pulse Rate 176 H 05/29/24 14:20 Respiratory Rate 20 05/29/24 14:20 Blood Pressure 111/76 05/29/24 14:20 Blood Pressure Mean 87 05/29/24 14:20 Blood Pressure Position Supine 05/29/24 14:20 Pulse Oximetry 97 05/29/24 14:20 Oxygen Delivery Method Room Air 05/29/24 14:20 Vital Signs Temperature 96.4 F L 05/29/24 14:20 Pulse Rate 176 H 05/29/24 14:20 Respiratory Rate 20 05/29/24 14:20 Blood Pressure 111/76 05/29/24 14:20 Pulse Oximetry 97 05/29/24 14:20 Oxygen Delivery Method Room Air 05/29/24 14:20 Temperature 96.4 F L 05/29/24 14:20 Pulse Rate 114 H 05/29/24 16:34 Respiratory Rate 20 05/29/24 14:20 Blood Pressure 86/51 L 05/29/24 16:34 Pulse Oximetry 99 05/29/24 16:34 Oxygen Delivery Method Room Air 05/29/24 14:20 Medications Administered Medications: Discontinued Medications Generic Name Dose Route Start Last Admin Trade Name Freq PRN Reason Stop Dose Admin Digoxin 250 mcg 05/29/24 15:57 05/29/24 16:16 Digoxin 250 Mcg/Ml Inj IV 05/29/24 15:58 250 mcg ONCE ONE Administration Sodium Chloride 250 mls @ 250 mls/hr 05/29/24 14:41 05/29/24 16:01 0.9 % Sodium Chloride 250 Ml IV 05/29/24 15:40 Infused .Q1H ONE Infusion Sodium Chloride 250 mls @ 250 mls/hr 05/29/24 15:56 05/29/24 16:45 0.9 % Sodium Chloride 250 Ml IV 05/29/24 16:55 250 mls/hr .Q1H ONE Administration Metoprolol Tartrate 5 mg 05/29/24 14:41 05/29/24 15:01 Metoprolol Tartrate 1 Mg/Ml Inj IVP 05/29/24 14:42 5 mg ONCE ONE Administration Metoprolol Tartrate 5 mg 05/29/24 15:37 05/29/24 16:44 Metoprolol Tartrate 1 Mg/Ml Inj IVP 05/29/24 15:38 Not Given ONCE ONE MDM - Arrhythmia/Palpitations Lab Data Attestation: I reviewed the patient's lab results. Labs: Lab Results 05/29/24 Range/Units 14:38 WBC 6.86 (4.50-11.00) K/uL RBC 4.11 (4.00-5.20) m/uL Hgb 12.1 (12.0-16.0) gm/dL Hct 38.7 (33.0-51.0) % MCV 94 (80-100) fL MCH 29 (26-34) pg MCHC 31 L (32-36) gm/dL RDW Coeff of [place] 13.6 (11.5-15.5) % Plt Count 362 (140-440) K/uL Neut % (Auto) 54.6 (42.0-72.0) % Lymph % (Auto) 30.2 (20-44) % [place] % (Auto) 10.2 (0.0-11.0) % Eos % (Auto) 4.2 (0.0-7.0) % Baso % (Auto) 0.7 (0.0-3.0) % Neut # (Auto) 3.74 (1.7-7.0) K/uL Lymph # (Auto) 2.07 (0.90-2.90) K/uL [place] # (Auto) 0.70 (0.00-0.90) K/UL Eos # (Auto) 0.29 (0.00-0.50) K/uL Baso # (Auto) 0.05 (0.00-0.30) K/uL Abs Immat Gran (auto) 0.01 (0.00-0.30) K/uL Imm/Tot Granulo (auto) 0.1 % Sodium 138 (135-149) mmol/L Potassium 4.3 (3.6-5.1) mmol/L Chloride 104 (96-114) mmol/L Carbon Dioxide 24 (20-32) mmol/L Anion Gap 10 (7-15) mEq/L BUN 32 H (7-30) mg/dL Creatinine 0.8 (0.5-1.5) mg/dL Estimated Creat Clear 29.54 Estimated GFR 72 ml/min Glucose 110 (60-115) mg/dL Calcium 9.5 (8.4-10.6) mg/dL Magnesium 2.0 (1.5-2.6) mg/dL Total Bilirubin 0.6 (0.1-1.5) mg/dL AST 26 (12-35) U/L ALT 15 (4-35) U/L Alkaline Phosphatase 222 H (40-150) U/L Troponin I < 0.01 L (0.01-0.04) ng/mL NT-Pro-B Natriuret Pep 631 pg/mL Total Protein 7.4 (6.0-8.3) g/dL Albumin 4.4 (3.3-5.0) g/dL TSH 2.120 (0.270-4.200) uIU/mL Imaging Data Chest x-ray: Attestation: I have reviewed the pertinent imaging results. My impression: I do not appreciate any evidence of congestive heart failure or fluid overload on my preliminary review. Radiologist's impression: Patient: DEVNER LIMA Facility:?[facility] Patient ID:?[id number] Site Patient ID:?[id number]. Site :?[id number] Study:?XRay-Chest PORTABLE-05/29/2024 2:59:32 PM Ordering Physician:?Pepito Gale Final Report: INDICATION: AFib with RVR TECHNIQUE: Chest 1 views. COMPARISON: None. FINDINGS AND IMPRESSION: Patient is rotated, which limits evaluation. Cardiovasculature and mediastinum: Prior cardiac surgery. Unremarkable mediastinum. Lungs and pleural spaces: Minimal bibasilar atelectasis. No sign of pleural effusion. No pneumothorax. Bones and soft tissues: Median sternotomy. Dictated by Julia Zhang MD @ 05/29/2024 3:09:40 PM (Electronic Signature) ECG Data Attestation: I personally reviewed and interpreted this ECG as follows: (Atrial fibrillation with RVR. Poor R-wave progression in anterior precordial leads, unchanged. Appears to have a nonspecific intra conduction delay developing. Has flipped T-waves some ST segment depression in the inferior leads, likely worsened from prior EKG from 04/20/2024.) ECG interpretation date: 05/29/24 ECG interpretation time: 14:36 Prior ECG tracings: available for review Critical Care Time Critical Care Time Critical Care Time: Yes Attestation: The patient required my highest level preparedness to intervene emergently and I personally spent this critical care time directly and personally managing the patient. This critical care time included: Obtaining a history; Examining the patient; Pulse oximetry; Ordering and reviewing of studies; Arranging urgent treatment with development of a management plan; Evaluation of patients response to treatment; Frequent reassessment discussions with other providers. This critical care time was performed to assess and manage the high probability of imminent life-threatening deterioration that could result in multiorgan failure. It was exclusive of separate billable procedures and treating other patients and teaching time. Total Critical Care Time in Minutes: 120 Discharge Plan Discharge Clinical Impression: Atrial fibrillation with rapid ventricular response Patient Disposition: Admitted As Observation
--- NOTE | 2024-05-29 14:41 | CRLHL7_ITS ---
For Patients: As a result of the Cures Act, medical imaging exams and procedure reports are released immediately into your electronic medical record. You may view this report before your referring provider. If you have questions, please contact your health care provider. INDICATION: AFib with RVR TECHNIQUE: Chest 1 views. COMPARISON: None. FINDINGS AND IMPRESSION: Patient is rotated, which limits evaluation. Cardiovasculature and mediastinum: Prior cardiac surgery. Unremarkable mediastinum. Lungs and pleural spaces: Minimal bibasilar atelectasis. No sign of pleural effusion. No pneumothorax. Bones and soft tissues: Median sternotomy. Dictated by Julia Zhang MD @ 05/29/2024 3:09:40 PM (Electronically Signed)
[2024-05-29 14:50] LABS: Basophils Absolute Auto 0.05 K/uL (0.00-0.30); Basophils Percent Auto 0.7 % (0.0-3.0); Eosinophils Absolute Auto 0.29 K/uL (0.00-0.50); Eosinophils Percent Auto 4.2 % (0.0-7.0); Hematocrit 38.7 % (33.0-51.0); Hemoglobin* 12.1 gm/dL (12.0-16.0); Immature Granulocytes Abs Auto 0.01 K/uL (0.00-0.30); Immature Granulocytes Pct Auto 0.1 %; Lymphocytes Absolute Auto 2.07 K/uL (0.90-2.90); Lymphocytes Percent Auto 30.2 % (20-44); Mean Corpuscular HGB Conc 31 gm/dL (32-36); Mean Corpuscular Hemoglobin 29 pg (26-34); Mean Corpuscular Volume 94 fL (80-100); Monocytes Percent Auto 10.2 % (0.0-11.0); Neutrophils Absolute Auto 3.74 K/uL (1.7-7.0); Neutrophils Percent Auto 54.6 % (42.0-72.0); Platelet Count* 362 K/uL (140-440); RDW Coefficient of Variation % 13.6 % (11.5-15.5); Red Blood Count 4.11 m/uL (4.00-5.20); White Blood Count* 6.86 K/uL (4.50-11.00)
[2024-05-29 14:54] LABS: Slide Review Reflex No
[2024-05-29] MEDS: METOPROLOL TARTRATE 1 MG/ML inj 5 MG IVP (15:01)
[2024-05-29] MEDS: 0.9 % SODIUM CHLORIDE 250 ml 250 ML IV ×2 (15:01→16:45)
[2024-05-29 15:05] LABS: Albumin* 4.4 g/dL (3.3-5.0); Chloride* 104 mmol/L (96-114)
[2024-05-29 15:06] LABS: Potassium* 4.3 mmol/L (3.6-5.1); Sodium* 138 mmol/L (135-149)
[2024-05-29 15:08] LABS: Bilirubin Total* 0.6 mg/dL (0.1-1.5); Creatinine* 0.8 mg/dL (0.5-1.5); Est. Creatinine Clearance* 29.54; Estimated Glomerular Filt Rate 72 ml/min
[2024-05-29 15:09] LABS: Alanine Aminotransferase* 15 U/L (4-35); Alkaline Phosphatase* 222 U/L (40-150); Anion Gap 10 mEq/L (7-15); Aspartate Amino Transferase* 26 U/L (12-35); Blood Urea Nitrogen* 32 mg/dL (7-30); Calcium* 9.5 mg/dL (8.4-10.6); Carbon Dioxide* 24 mmol/L (20-32); Glucose* 110 mg/dL (60-115); Total Protein* 7.4 g/dL (6.0-8.3)
[2024-05-29 15:20] LABS: NT Pro B Type NatriureticPept* 631 pg/mL
[2024-05-29 15:25] LABS: Troponin I* < 0.01 ng/mL (0.01-0.04)
--- OUTSIDE RECORDS SUMMARY | 2024-05-29 15:25 | XMS_ITS | Clinical Summary ---
Author Organization [facility] Address [address] [facility] [place] [address] Care Team Providers Care Front Office Manager Name Role Phone Natalia Everett DO Primary Care Provider [phone] Allergies Active Allergy Reactions Criticality Noted Date [...] previous episodes (2008, 2009); no anticoagulation. Overview: Icu Specialist: Dr. Jevon Shelton ([facility]) Overview: Overview: Icu Specialist: Dr. Jevon Shelton ([facility]) Overview: Icu Specialist: Dr. Jevon Shelton ([facility]) Hyperlipidemia 04/01/2010 Encounters Date Type Department Care Team Description 04/12/2024 9:40 AM CDT Radiology Injection Office Visit [facility] [address] [place] [phone] Juancarlos Godoy DO Biceps tendinopathy, left; Other synovitis and tenosynovitis, left upper arm 04/12/2024 Travel 04/10/2024 2:20 PM CDT Office Visit [facility] [address] [phone] Juancarlos Godoy DO Biceps tendinopathy, left (Primary Dx); Primary osteoarthritis of left shoulder; Chronic left shoulder pain; Other synovitis and tenosynovitis, left upper arm 04/10/2024 Travel from Last 3 Months Social History Tobacco Use Types Packs/Day Years Used Date Smoking Tobacco: Never Smokeless Tobacco: Never Tobacco Cessation:Counseling Given: Not Answered PHQ-2 Answer Date Recorded PHQ-2 Score 0 04/10/2024 Adolescent Education Answer Date Record ed Getting School Help Needed Not on file 11/23 Sex and Gender Information Value Date Recorded Sex Assigned at Female 11/23/2023 2:16 PM MANAGER GAME Gender Identity Not on file Sexual Orientation [...] Other synovitis and tenosynovitis, left upper arm from Last 3 Months Results * PAIN [...] ORDERABLES from Last 3 Months Care Teams Front Office Manager Relationship Specialty Start Date End Date Natalia Everett DO [address] [place] [address] PCP - General Family Practice 02/19/24
--- OUTSIDE RECORDS SUMMARY | 2024-05-29 15:26 | XMS_ITS | Encounter Summary ---
Author Organization [place] Address [address] [facility] [place] [address] Care Team Providers Care Wrapper Stemmer Hand Name Role Phone Natalia Everett DO Primary Care Provider [phone] Encounter Details Date Type Department Care Team (Late st Contact Info) Description 01/19/2024 Telephone [facility] [address] [place] [phone] Lor Cooney, RN Social History Tobacco Use Types Packs/Day Years Used Date Smoking Tobacco: Never Smokeless Tobacco: Never PHQ-2 Answer Date Recorded PHQ-2 Score 0 04/10/2024 Adolescent Education Answer Date Record ed Getting School Help Needed Not on file 11/23 Sex and Gender Information Value Date Recorded Sex Assigned at Female 11/23/2023 2:16 PM DIRECTOR OF IT OPERATIONS Gender Identity Not on file Sexual Orientation [...] RN Sent: 01/11/2024 3:05 PM CDT To: [facility] Procedure Support Pool Subject: [...] Godoy in 6 weeks. Juancarlos Godoy DO IMTayla PAIN MANAGEMEN T ORDERABLES documented in this encounter Visit Diagnoses Diagnosis Osteoarthritis of shoulder region- Primary Osteoarthrosis, unspecified whether generalized or localized, shoulder region Osteoarthritis of shoulder region- Primary Osteoarthrosis, unspecified whether generalized or localized, shoulder region documented in this encounter Care Teams Wrapper Stemmer Hand Relationship Specialty Start Date End Date Natalia Everett DO [address] [place] [address] PCP - General Family Practice 02/19/24 documented as of this encounter
--- OUTSIDE RECORDS SUMMARY | 2024-05-29 15:26 | XMS_ITS | Clinical Summary ---
Author Organization [employer] [facility] Address [place], [place] [address] Care Team Providers Care Director Of Corporate Responsibility Name Role Phone Natalia Everett DO Primary Care Provider [phone] Allergies Active Allergy Reactions Criticality Noted Date Comments Penicillins Rash 03/25/2022 Sulfa (Sulfonamide Antibiotics) Rash 03/03 Medications Medication Sig Dispensed Refills Start Date End Date Status acetaminophen (TYLENOL EXTRA STRGTH) 500 mg tablet Take 1 Tablet (500 mg) by mouth every 6 hours if needed. Max acetaminophen dose: 4000mg in 24 hrs. 0 2 Active docusate (COLACE) 100 mg capsule Take 1 Capsule (100 mg) by mouth 2 times daily if needed for Constipation. 0 2 Active aspirin chewable 81 mg chewable tablet Chew 1 Tablet (81 mg) by mouth once daily with a meal. 0 2 Active cholecalciferol (VITAMIN D3) 1,000 unit capsule Take 1 Capsule (1,000 units) by mouth once daily. 0 2 Active multivitamin (MVI) tablet Take 1 Tablet by mouth once daily. 0 2 Active ondansetron (ZOFRAN ODT) 4 mg disintegrating tabletIndications: Diaphragmatic hernia without obstruction and without gangrene Place 1 Tablet (4 mg) on the tongue every 8 hours if needed for Nausea/Vomiting. 15 Tablet 3 Active polyethylene glycoL (MIRALAX) 17 gram/scoop powderIndications: Diaphragmatic hernia without obstruction and without gangrene Mix 1 scoop (17 g) in liquid then take by mouth once daily. Take one dose in water daily until bowels are easy and regular. Then return to your daily Colace. 510 g 3 Active atorvastatin (LIPITOR) 20 mg tabletIndications: Mixed hyperlipidemia Take 1 Tablet (20 mg) by mouth at bedtime. 90 Tablet 3 4 Active levothyroxine (SYNTHROID) 25 mcg tabletIndications: Hypothyroidism (acquired) Take 1 Tablet (25 mcg) by mouth once daily. 90 Tablet 3 4 Active mirtazapine (REMERON) 15 mg tabletIndications: Insomnia, idiopathic,Poor appetite,Anxiety Take 1 Tablet (15 mg) by mouth at bedtime. 90 Tablet 3 4 Active metoprolol succinate (TOPROL XL) 25 mg Sustained-Release tabletIndications: HTN (hypertension) Take 1 Tablet (25 mg) by mouth once daily. 90 Tablet 3 4 Active lisinopriL (PRINIVIL; ZESTRIL) 10 mg tabletIndications: HTN (hypertension) Take 1 Tablet (10 mg) by mouth once daily. 90 Tablet 3 4 Active omeprazole (PRILOSEC) 40 mg Delayed-Release capsuleIndications :Gastroesophageal reflux disease, unspecified whether esophagitis present,Dysphagia, unspecified type TAKE 1 CAPSULE (40 MG) BY MOUTH ONCE DAILY. TAKE 30-60 MINUTES BEFORE A MEAL/FOOD ONCE A DAY. 90 Capsule 4 Active omeprazole (PRILOSEC) 40 mg Delayed-Release capsuleIndications :Gastroesophageal reflux disease, unspecified whether esophagitis present,Dysphagia, unspecified type Take 1 Capsule (40 mg) by mouth once daily. Take 30-60 minutes before a meal/food once a day. 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 Diaphragmatic hernia without obstruction and without gangrene Encounters Date Type Department Care Team Description 05/29/2024 Nurse Triage [facility] [address] [place] [address] Natalia Everett Lauren, DO Fast Heartbeat 05/05/2024 Refill [facility] [address] [place] [address] Luis Antonio Acevedo MD Refill Request (Omeprazole) 04/30/2024 Lab Requisition [facility] [phone] Kristian Cortez MD 04/23/2024 Telephone [facility] [address] [place] [phone] Luis Poole MD Refill Request (Oxycodone 5mg tab) from Last 3 Months Immunizations Name Administration Dates Next Due COVID-19 vaccine (Moderna 10 0mcg/0.5mL) PF, MDV 08/03/2021,11/18/2020,10/21/2020 COVID-19 vaccine (Moderna Earnest kelley 50mcg/0.25mL) PF, MDV 01/20/2022 COVID-19 vaccine (Pfizer-Bio NTech 30mcg/0.3mL) 12YO+ BIVALENT PF, MDV 07/06/2022 Influenza, High-dose Inactivated 07/02/2021,100 11/2018,07/21/2017 Influenza, High-dose Quadriv alent Inactivated 07/07/2022 Influenza, [...] Comments Blood Pressure 138/64 10/11/2023 2:57 PM AIRCRAFT MECHANIC Pulse 55 10/11/2023 2:57 PM AIRCRAFT MECHANIC Temperature 36.6 ??C (97.8 ??F) 11/30/2022 10:[address] Respiratory Rate 16 10/13/2022 9:27 AM AIRCRAFT MECHANIC Oxygen Saturation 100% 10/11/2023 2:57 PM AIRCRAFT MECHANIC Inhaled Oxygen Concentration - - Weight 50.4 kg (111 lb 3.2 oz) 10/11/2023 2:57 P M AIRCRAFT MECHANIC Height 150.2 cm (4' 11.13) 10/11/2023 8:[address] Body Mass Index 22.36 10/11/2023 8:17 AM AIRCRAFT MECHANIC Plan of Treatment Upcoming Encounters Date Type Department Care Team (Late st Contact Info) Description 06/05/2024 11:00 AM CDT Office Visit [facility] [address] [place] [address] CamSir nickwilliam Aguilar, DO [address] [place] [address] Health Maintenance Due Date Last Done Comments COVID-19 vaccine series (2022- season) 2023 07/13/2023, 07/06/2022, 01/20/2022, Additional [...] Procedure Name Priority Date/Time Associated Diagnosis Comments CBC WITH AUTO DIFFERENTIAL Routine 04/30/2024 7:29 AM CDT Hemorrhage of anus and rectum Anemia, unspecified CBC WITH AUTO DIFFERENTIAL Routine 04/30/2024 7:29 AM CDT Hemorrhage of anus and rectum Anemia, unspecified XR DXA BONE DENSITY 2 SITES AXIAL Routine 04/03/2023 10:03 AM CDT Postmenopausal from Last 3 Months or Most Recently Relevant to Health Maintenance Results * (ABNORMAL) CBC WITH AUTO DIFFERENTIAL (04/30/2024 7:29 AM T) WHITE BLOOD COUNT 7.3 4.5 - 11.0 thou/cu mm 04/30/2024 8:56 AM [facility] RED BLOOD COUNT 3.63(L) 4.00 - 5.20 mil/cu mm 04/30/2024 8:56 AM [facility] HEMOGLOBIN 11.2(L) 12.0 - 16.0 g/dL 04/30/2024 8:56 AM [facility] HEMATOCRIT 34.4 33.0 - 51.0 % 04/30/2024 8:56 AM [facility] MCV 95 80 - 100 fL 04/30/2024 8:56 AM [facility] MCH 30.9 26.0 - 34.0 pg 04/30/2024 8:56 AM [facility] MCHC 32.6 32.0 - 36.0 g/dL 04/30/2024 8:56 AM [facility] RDW 13.2 11.5 - 15.5 % 04/30/2024 8:56 AM [facility] PLATELET COUNT 443(H) 140 - 440 thou/cu mm 04/30/2024 8:56 AM [facility] MPV 9.1 6.5 - 11.0 fL 04/30/2024 8:56 AM [facility] % NEUT 58.3 % 04/30/2024 8:56 AM [facility] % LYMPH 24.9 % 04/30/2024 8:56 AM [facility] % MONO 10.0 % 04/30/2024 8:56 AM [facility] % EOS 6.0 % 04/30/2024 8:56 AM [facility] % BASO 0.8 % 04/30/2024 8:56 AM [facility] ABSOLUTE NEUTROPHILS 4.3 1.7 - 7.0 thou/cu mm 04/30/2024 8:56 AM [facility] ABSOLUTE LYMPHOCYTES 1.8 0.9 - 2.9 thou/cu mm 04/30/2024 8:56 AM CDT [facility] ABSOLUTE MONOCYTES 0.7 <0.9 thou/cu mm 04/30/2024 8:56 AM CDT [facility] ABSOLUTE EOSINOPHILS 0.4 <0.5 thou/cu mm 04/30/2024 8:56 AM CDT [facility] ABSOLUTE BASOPHILS 0.1 <0.3 thou/cu mm 04/30/2024 8:56 AM CDT [facility] Blood BLOOD SPECIMEN / Unknown Butterfly / Unknown 04/30/2024 7:29 AM CDT 04/30/2024 8:38 AM CDT Kristian Cortez MD HEMATOLOGY [facility] [address] [place] [address] * (ABNORMAL) XR DXA BONE DENSITY 2 SITES AXIAL [45368.1] (04/03/2023 10:03 AM CDT) Anatomical Region Laterality [...] recommended in 3-5 years. Thais Barker PA-C [facility] 04/06/2023 Narrative 04/06/2023 1:06 PM CDT For Patients: Results are automatically released to your [employer] ([employer]) account once available, in compliance with federal regulations. This means that you may see your results before your provider has had a chance to review them. Please allow 2-3 business days for your provider to comment on the results. XR DXA Bone Mineral Density (BMD) EXAM LOCATION: [facility] [address] [facility] [address] PATIENT NAME: Ingrid Granger DATE OF : 1940 EXAM DATE: 04/03/2023 REQUESTING PROVIDER: Natalia Everett DO GENDER AT : female HEIGHT: 4' [...] two scanners are made by the same hub cutter apprentice. PROCEDURE: Dual-energy x-ray absorptiometry performed with routine [...] Documents on File Type Date Recorded Patient Yarn Winder Expl anation Healthcare Directive 02/12/2022 022 * [...] Code Status Discussion: Reviewed Preferences Care Teams Director Of Corporate Responsibility Relationship Specialty Start Date End Date Natalia Everett DO [address] [place] [address] PCP - General Family Practice 04/05/22
--- OUTSIDE RECORDS SUMMARY | 2024-05-29 15:26 | XMS_ITS | Encounter Summary ---
Author Organization [facility] Address [address] [place] [address]. [place] [address] Care Team Providers Care Land Examiner Name Role Phone MargueriteNatalia Lauern ASHRAF Primary Care Provider [phone] Reason for Visit * Reason Comments Pain [...] [place] [address] [place] [address] [place] [address] Juancarlos Godoy DO [address] [place] [address] Referral ID Status Reason Start Date Expiration Date Visits Re quested Visits Authorized [id number] Closed 02/19/2024 02/18/2025 1 1 Encounter Details Date Type Department Care Team (Late st Contact Info) Description 02/19/2024 9:00 AM CDT Radiology Injection Office Visit [facility] [address] [facility] [address] [place] [address] Juancarlos Godoy DO [address] [place] [address] [phone] Osteoarthritis of shoulder region (Primary Dx) Social History Tobacco Use Types Packs/Day Years Used Date Smoking Tobacco: Never Smokeless Tobacco: Never Adolescent Education Answer Date Record ed Getting School Help Needed Not on file 11/23 Sex and Gender Information Value Date Recorded Sex Assigned at Female 11/23/2023 2:16 PM INTERVENTION MANAGER Gender Identity Not on file Sexual [...] Garcia RN - 02/19/2024 9:00 AM CDT [facility] POST COOLIEF RADIOFREQUENCY During office hours (8:00 am - 4:00 pm) questions or concerns may be answered by calling Spine Center Navigation Nurses at [phone]. Messages received after hours will be returned [...] WEEKS. Please call Spine Center Scheduling -- [phone] for the appointment if you don't hear from the Spine Center in the next couple days documented in this encounter Progress Notes * Gracy Muse - 02/19/2024 9:00 AM CDT Pre-procedure Intake If YES to any questions or NO to having a driver trainee Please complete laminated checklist and leave on [...] seven days? NO Do you have a driver trainee? Yes Are you or ? NO Have [...] Grounding pad at the left upper back [employer] kit: [id number] Expires: 04-12-2025 Medications: Lidocaine 1% Lidocaine 2% [...] mLs documented in this encounter Care Teams Land Examiner Relationship Specialty Start Date End Date Natalia Everett DO [address] [place] [address] PCP - General Family Practice 02/19/24 documented as of this encounter
--- OUTSIDE RECORDS SUMMARY | 2024-05-29 15:26 | XMS_ITS | Encounter Summary ---
Author Organization [place] Address [address] [place] [address] Care Team Providers Care Traffic Police Officer Name Role Phone Natalia Everett DO Primary Care Provider Encounter Details Date Type Department Care Team [...] Sex Assigned at Female 11/23/2023 2:16 PM NURSING PROGRAM CHAIR Gender Identity Not on file Sexual Orientation Not on file documented as of this encounter Plan of Treatment Not on file documented as of this encounter Visit Diagnoses Not on filedocumented in this encounter Care Teams Traffic Police Officer Relationship Specialty Start Date End Date Natalia Everett DO [address] [place] [address] PCP - General Family Practice 02/19/24 documented as of this encounter
--- OUTSIDE RECORDS SUMMARY | 2024-05-29 15:26 | XMS_ITS ---
Author Organization [facility] Address [address] [place] [address] Care Team Providers Care Furniture Salesperson Name Role Phone Unavailable Unavailable Unavailable Surgery Details Not on file Complications Check Surgery Details section. Procedure Estimated Blood Loss Check Surgery Details section. Procedure Findings Check Surgery Details section. Procedure Specimens Taken Check Surgery Details section.
--- OUTSIDE RECORDS SUMMARY | 2024-05-29 15:26 | XMS_ITS | Encounter Summary ---
Author Organization [facility] Address [address] [facility] [place] [address] Care Team Providers Care Canvas Baster Jumpbasting Name Role Phone Natalia Everett DO Primary Care Provider [phone] Encounter Details Date Type Department Care Team (Latest Contact Info) Description 02/19/2024 Travel Social History Tobacco Use Types Packs/Day Years Used Date Smoking Tobacco: Never Smokeless Tobacco: Never Adolescent Education Answer Date Record ed Getting School Help Needed Not on file 11/23 Sex and Gender Information Value Date Recorded Sex Assigned at Female 11/23/2023 2:16 PM FINANCE ASSISTANT Gender Identity Not on file Sexual Orientation Not on file documented as of this encounter Plan of Treatment Not on file documented as of this encounter Visit Diagnoses Not on filedocumented in this encounter Care Teams Canvas Baster Jumpbasting Relationship Specialty Start Date End Date Natalia Everett DO [address] [place] [address] PCP - General Family Practice 02/19/24 documented as of this encounter
--- OUTSIDE RECORDS SUMMARY | 2024-05-29 15:26 | XMS_ITS | Encounter Summary ---
Author Organization [facility] Address [address] [place] [address]. [place] [address] Care Team Providers Care Research Instructor Name Role Phone Natalia Everett Lauren ASHRAF Primary Care Provider [phone] Reason for Visit * Reason Comments Shoulder Pain Encounter Details Date Type Department Care Team (Late st Contact Info) Description 04/10/2024 2:20 PM CDT Office Visit [facility] Spine and Neurosurgery [address] [place] [phone] Juancarlos Godoy DO [address] [place] [id number] Biceps tendinopathy, left (Primary Dx); Primary osteoarthritis [...] Sex Assigned at Female 11/23/2023 2:16 PM OYSTER WASHER Gender Identity Not on file Sexual Orientation [...] Godoy DO - 04/10/2024 2:20 PM CDT [facility] Injection Requirements A parcel post truck driver is required for all fluoroscopically-guided injections. [...] anesthetics, iodine, or contrast dye should contact [facility] to further discuss these considerations. Patients scheduled [...] than 3.0. Please contact the Spine Center (#[phone]) if you are taking any prescription blood-thinning [...] 5/5 Shoulder abduction left 5/5, right 5/5 Manager Neonatal left 5/5, right 5/5 --NEUROLOGIC: Sensation to [...] arm documented in this encounter Care Teams Research Instructor Relationship Specialty Start Date End Date Natalia Everett DO [address] [place] [address] PCP - General Family Practice 02/19/24 documented as of this encounter
--- OUTSIDE RECORDS SUMMARY | 2024-05-29 15:26 | XMS_ITS | Encounter Summary ---
Author Organization [place] Address [address] [place] [address]. [place] [address] Care Team Providers Care Spa Experience Coordinator Name Role Phone Natalia Everett Primary Care Provider [phone] Reason for Visit * Reason Comments Injections * Physical Medicine (Routine) - Closed Specialty Diagnoses / Procedures Referred By Oscar gloria Referred To Contact Pain Medicine / Physical Medicine and Rehab Diagnoses Biceps tendinopathy, left Other synovitis and tenosynovitis, left upper arm Left biceps tendon sheath injection under ultrasound guidance Procedures PAIN US TENDON SHEATH INJECTION SPINE US [address] [place] [address] [place] [address] Juancarlos Godoy DO [address] [place] [address] Referral ID Status Reason Start Date Expiration Date Visits Re quested Visits Authorized [id number] Closed 04/12/2024 04/12/2025 1 1 Encounter Details Date Type Department Care Team (Late st Contact Info) Description 04/12/2024 9:40 AM CDT Radiology Injection Office Visit [facility] Spine and Neurosurgery [address] [place] [address] [address] [place] [address] Juancarlos Godoy DO [address] [place] [phone] Biceps tendinopathy, left; Other synovitis and tenosynovitis, [...] Sex Assigned at Female 11/23/2023 2:16 PM CHICKEN DRESSER Gender Identity Not on file Sexual Orientation [...] by calling Spine Center Navigation Nurses at [phone]. Messages received after hours will be returned [...] relieved by lying down, please call the [facility] to speak with a clinical [...] mg documented in this encounter Care Teams Spa Experience Coordinator Relationship Specialty Start Date End Date Natalia Everett DO [address] [place] [address] PCP - General Family Practice 02/19/24 documented as of this encounter
--- OUTSIDE RECORDS SUMMARY | 2024-05-29 15:26 | XMS_ITS | Encounter Summary ---
Author Organization [facility] Address [address] [facility] [place] [address] Care Team Providers Care Exhibition Organiser Name Role Phone Natalia Everett DO Primary [...] Sex Assigned at Female 11/23/2023 2:16 PM SPECIALTY TRANSFORMER ASSEMBLER Gender Identity Not on file Sexual Orientation Not on file documented as of this encounter Plan of Treatment Not on file documented as of this encounter Visit Diagnoses Not on filedocumented in this encounter Care Teams Exhibition Organiser Relationship Specialty Start Date End Date Natalia Everett DO [address] [place] [address] PCP - General Family Practice 02/19/24 documented as of this encounter
--- OUTSIDE RECORDS SUMMARY | 2024-05-29 15:26 | XMS_ITS | Referral Summary ---
Author Organization [facility] Address [address] [place] [address] Care Team Providers Care Lab Support Tech Name Role Phone Elsewhere, Pcp Primary Care Provider Unavailabl e Source Comments Patient records contain information from all sites at [facility]. For routine questions regarding patient records, call [phone] during business hours, M-F 8:00 AM - 5:00 PM Central Time. Record requests for emergency care only can be directed to [phone] at any time.[facility] Allergies Active Allergy Reactions Criticality Noted Date [...] often do you attend chur ch or roman catholic services? More than 4 times per year 12/26/2022 Do you belong to any clubs o r organizations such as buddhism groups, unions, fraternal or athletic groups, or [...] and heating? Not hard at all 12/26/2022 [facility] - Occupational [...] place to sleep or slept in a custodial (including now)? No 12/26/2022 Nutrition Answer Date [...] Sex Assigned at Female 11/29/2022 8:21 PM ROD BUSTER Gender Identity Female 11/29/2022 8:21 PM ROD BUSTER Sexual Orientation Straight 11/29/2022 8: 21 PM ROD BUSTER Last Filed Vital Signs Vital Sign Reading Time Taken Comments Blood Pressure 137/54 12/30/2022 9:06 AM CDT Pulse 52 12/30/2022 9:06 AM CDT Temperature - - Respiratory Rate - - Oxygen Saturation - - Inhaled Oxygen Concentration - - Weight 45.5 kg (100 lb 3.2 oz) 12/01/2022 3:23 P M ROD BUSTER Height 151.9 cm (4' 11.8) 12/01/2022 3:23 PM CS T Body Mass Index 19.7 12/01/2022 3:23 PM ROD BUSTER Plan of Treatment Not on file Care Teams Lab Support Tech Relationship Specialty Start Date End Date Elsewhere, Pcp PCP - General Internal Medicine 12/30/22
--- OUTSIDE RECORDS SUMMARY | 2024-05-29 15:26 | XMS_ITS | Clinical Summary ---
Author Organization [facility] Address [address] [place] [address] Care Team Providers Care Production Checker Name Role Phone Elsewhere, Pcp Primary Care Provider Unavailabl e Source Comments Patient records contain information from all sites at [facility]. For routine questions regarding patient records, call [phone] during business hours, M-F 8:00 AM - 5:00 PM Central Time. Record requests for emergency care only can be directed to [phone] at any time.[facility] Allergies Active Allergy Reactions Criticality [...] any clubs o r organizations such as quaker groups, unions, fraternal or athletic groups, or [...] and heating? Not hard at all 12/26/2022 [facility] - Occupational [...] Sex Assigned at Female 11/29/2022 8:21 PM IS SUPPORT ANALYST Gender Identity Female 11/29/2022 8:21 PM IS SUPPORT ANALYST Sexual Orientation Straight 11/29/2022 8: 21 PM IS SUPPORT ANALYST Last Filed Vital Signs Vital Sign Reading Time Taken Comments Blood Pressure 137/54 12/30/2022 9:06 AM CDT Pulse 52 12/30/2022 9:06 AM CDT Temperature - - Respiratory Rate - - Oxygen Saturation - - Inhaled Oxygen Concentration - - Weight 45.5 kg (100 lb 3.2 oz) 12/01/2022 3:23 P M IS SUPPORT ANALYST Height 151.9 cm (4' 11.8) 12/01/2022 3:23 PM CS T Body Mass Index 19.7 12/01/2022 3:23 PM IS SUPPORT ANALYST Plan of Treatment Health Maintenance Due [...] Zoster Vaccines Completed 02/19/2022, 12/07/2021 Care Teams Production Checker Relationship Specialty Start Date End Date Elsewhere, Pcp PCP - General Internal Medicine 12/30/22
--- OUTSIDE RECORDS SUMMARY | 2024-05-29 15:26 | XMS_ITS | Referral Summary ---
Author Organization [place] Address [address] [facility] [address] Care Team Providers Care Mental Health Worker Name Role Phone GuanacoyoungNatalia nick Lauren ASHRAF Primary Care Provider [phone] Encounters Date Type Department Care Team Description 04/12/2024 Travel 04/12/2024 9:40 AM CDT Radiology Injection Office Visit [facility] Spine and Neurosurgery [address] [place] [phone] Juancarlos Godoy DO Biceps tendinopathy, left; Other synovitis and tenosynovitis, left upper arm 04/10/2024 Travel 04/10/2024 2:20 PM CDT Office Visit [facility] Spine and Neurosurgery [address] [place] [phone] Juancarlos Godoy DO Biceps tendinopathy, left (Primary Dx); Primary osteoarthritis of left shoulder; Chronic left shoulder pain; Other synovitis and tenosynovitis, left upper arm from Last 3 Months Allergies Active Allergy [...] previous episodes (2008, 2009); no anticoagulation. Overview: Children'S Minister: Dr. Jevon Shelton ([facility]) Overview: Overview: Children'S Minister: Dr. Jevon Shelton ([facility]) Overview: Children'S Minister: Dr. Jevon Shelton ([facility]) Hyperlipidemia 04/01/2010 Social History Tobacco Use Types Packs/Day Years Used Date Smoking Tobacco: Never Smokeless Tobacco: Never Tobacco Cessation:Counseling Given: Not Answered PHQ-2 Answer Date Recorded PHQ-2 Score 0 04/10/2024 Adolescent Education Answer Date Record ed Getting School Help Needed Not on file 11/23 Sex and Gender Information Value Date Recorded Sex Assigned at Female 11/23/2023 2:16 PM CLINICAL TRIAL SPECIALIST Gender Identity Not on file Sexual Orientation [...] ORDERABLES from Last 3 Months Care Teams Mental Health Worker Relationship Specialty Start Date End Date Natalia Everett DO [address] [place] [address] PCP - General Family Practice 02/19/24
[2024-05-29] MEDS: DIGOXIN 250 MCG/ML inj IV (16:16)
--- NOTE | 2024-05-29 16:20 | P.IMHP_ITS ---
Hospitalist- H&P: HPI History of Present Illness Date Seen: 05/29/24 Chief complaint: irregular heartbeat Narrative: ADMISSION HISTORY AND PHYSICAL - HOSPITALIST Chief Complaint: weakness; palpitations. HPI: Patient is an 83-year-old resident of the [facility] across the street. 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 She woke this morning with notable postural weakness. She said each time she tried to sit up on the edge of the bed she felt so weak she laid back down. She noted palpitations. She states that she has had this symptom a couple of times in recent months but it never lasted nor felt this severe. She called her son and was brought to our emergency room for further evaluation. She did not have any syncope. She denies any chest pain. She is only mildly short of breath. No headache or laterality to her weakness, her weakness is generalized. No fever or chills. ER COURSE: Cardiac workup noted AFib with RVR. She was mildly hypotensive intermittently. No obvious congestive failure. Troponin is negative. ECG shows the RVR in AFib but otherwise no ischemic changes. CODE STATUS: Modified -DNI, No CPR -defibrillation, cardioversion and meds ok EMERGENCY CONTACT PLAN: Valdo Granger Rel To Pat Son Cell I've updated the PFSH, medications and allergies in the Expanse tabs. INVESTIGATIONS: LABS/MICRO/ECG/IMAGING CBC is unremarkable Complete metabolic panel is unremarkable other than a notable elevated alkaline phosphatase Troponin is negative BNP 631, this is her baseline TSH is normal Single-view chest x-ray is unremarkable. EKG showed the AFIB/RVR and marked ST variation; (no chest pain, neg trop) REVIEW OF SYSTEMS: 12-point ROS completed with patient and negative unless otherwise stated in HPI or below. PHYSICAL EXAM: CONSTITUTIONAL: Conversive, good historian. A/O. Knows setting and context. VITAL SIGNS: see record. HEENT: Normocephalic, atraumatic. PERRL, EOMI, conjunctivae pink, no scleral icterus. Ears and nose externally normal. Pharynx normal. NECK: No JVD. No carotid bruit, no thyromegaly, no adenopathy. CHEST: Clear to auscultation bilaterally HEART: S1 and S2 normal. TRANG 3-6. Edema minimal MUSCULOSKELETAL: No gross joint deformity or swelling. NEURO: Cranial nerves intact. Grossly intact. No asymmetric findings. SKIN: No rashes, petechiae, concerning changes PSYCHIATRIC: Euthymic. ADMIT TO MEDSURG: FLOOR CARE DVT: Lovenox GI: PO intake Time spent: Today I spent 75 minutes seeing the patient, discussing the patient with ER staff, reviewing Expanse and EPIC notes/diagnostics, discussing the care plan with our care time that includes social work, PT/OT, pharmacy, RT, halfway and documenting my impressions and plan in the medical record. [facility] Medical History (Updated 05/29/24 @ 18:58 by Charlotte Cash MD) Alcohol abuse ?F10.10 - Alcohol abuse, uncomplicated (ICD-10) Coronary artery disease ?I25.10 - Atherosclerotic heart disease of [place] coronary artery without angina pectoris (ICD-10) Cataract ?H26.9 - Unspecified cataract (ICD-10) Osteopenia of multiple sites ?M85.89 - Other specified disorders of bone density and structure, multiple sites (ICD-10) Episodic atrial fibrillation ?I48.0 - Paroxysmal atrial fibrillation (ICD-10) Acquired hyperlipoproteinemia ?E78.5 - Hyperlipidemia, unspecified (ICD-10) Essential (primary) hypertension ?I10 - Essential (primary) hypertension (ICD-10) Hypothyroidism ?E03.9 - Hypothyroidism, unspecified (ICD-10) Surgical History History of repair of hiatal hernia ?Z98.890 - Other specified postprocedural states (ICD-10) ?Z87.19 - Personal history of other diseases of the digestive system (ICD-10) S/P CABG x 3 ?Z95.1 - Presence of aortocoronary bypass graft (ICD-10) Social History Narrative: She lives in independent apartment at [facility]. Her son Valdo is here with her today. Remote history of cigarette smoking, quit at age 28. History of alcohol abuse but none in at least 12 years. What is your current living situation?: I presently have a place to live Problems where you live: no known problems Problems where you live details: lives at [facility] In the past 12 months, utilities in danger of being shut off: no In past 12 months, lack of transportation kept you from medical appts, meetings, work, or getting things needed for daily living: no In the past 12 mos, have been you worried that your food would run out before you had money to buy more?: never true In the past 12 mos, the food you bought just didn't last and you didn't have money to buy more?: never true Highest level of school completed/degree received: Bachelor's degree Smoking Status: Never smoker Do you use any of these nicotine containing products: None Second hand tobacco smoke exposure: No How often do you have a drink containing alcohol: never How often do you have six or more drinks on one occasion: Never AUDIT-C Alcohol total score: 0 Non-prescribed substance use: denies use Caffeine: Yes (1 cup daily) How often does anyone, including family, friends and others, physically hurt you : never How often does anyone, including family, friends and others, insult or talk down to you: never How often does anyone, including family, friends and others, threaten you with harm: never How often does anyone, including family, friends and others, scream or curse at you: never service: No Meds Home Medications and Allergies Home Medications ?Medication ?Instructions ?Recorded ?Confirmed ?Type acetaminophen 500 mg tablet 500 mg PO Q6H PRN 11/07/22 05/29/24 History aspirin 81 mg chewable tablet 81 mg PO DAILY 11/07/22 05/29/24 History atorvastatin 20 mg tablet 20 mg PO HS 11/07/22 05/29/24 History cholecalciferol (vitamin D3) 25 1,000 unit PO DAILY 11/07/22 05/29/24 History mcg (1,000 unit) capsule levothyroxine 25 mcg capsule 25 mcg PO DAILY 11/07/22 05/29/24 History metoprolol succinate 25 mg 25 mg PO DAILY 11/07/22 05/29/24 History tablet,extended release 24 hr calcium carbonate (Calcium 600) 600 mg PO BID 04/20/24 05/29/24 History omeprazole 40 mg capsule,delayed 40 mg PO DAILY PRN 04/20/24 05/29/24 History release omeprazole 05/29/24 History Allergies Allergy/AdvReac Type Severity Reaction Status Date / Time Penicillins Allergy Unknown Verified 04/20/24 07:36 Sulfa (Sulfonamide Allergy Unknown Verified 04/20/24 07:36 Antibiotics) Exam Const: Vital Signs, click to edit/add: Vital Signs - 24 hr 05/29/24 14:20 05/29/24 14:25 05/29/24 14:26 Temperature 96.4 F L Pulse Rate 140 H 121 H Pulse Rate [Pulse Oximeter] 176 H Respiratory Rate 20 Blood Pressure 111/76 Blood Pressure [Le ft Upper Arm] 111/76 Pulse Oximetry 97 96 97 [facility] 05/29/24 14:30 05/29/24 14:41 05/29/24 14:45 Temperature Pulse Rate 123 H 127 H Pulse Rate [Pulse Oximeter] Respiratory Rate Blood Pressure Blood Pressure [Le ft Upper Arm] Pulse Oximetry 97 96 98 Oxygen Delivery Me thod 05/29/24 15:00 05/29/24 16:16 Temperature Pulse Rate 90 156 H Pulse Rate [Pulse Oximeter] Respiratory Rate Blood Pressure Blood Pressure [Le ft Upper Arm] Pulse Oximetry 96 Oxygen Delivery [facility] Hospital[facility] - H&P: Result Labs Labs: Short CBC 05/29/24 Range/Units 14:38 WBC 6.86 (4.50-11.00) K/uL Hgb 12.1 (12.0-16.0) gm/dL Hct 38.7 (33.0-51.0) % Plt Count 362 (140-440) K/uL BMP 05/29/24 14:38 Sodium 138 Potassium 4.3 Chloride 104 Carbon Dioxide 24 BUN 32 H Creatinine 0.8 Glucose 110 Calcium 9.5 Cardiac Enzymes 05/29/24 Range/Units 14:38 Troponin I < 0.01 L (0.01-0.04) ng/mL Liver Function 05/29/24 Range/Units 14:38 Total Bilirubin 0.6 (0.1-1.5) mg/dL AST 26 (12-35) U/L ALT 15 (4-35) U/L Alkaline Phosphatase 222 H (40-150) U/L Albumin 4.4 (3.3-5.0) g/dL Assessment and Plan Assessment and plan (1) Atrial fibrillation with rapid ventricular response: Problem comment: -brief distant hx - no OAC at that time KAYLAN VASC 4 HASBLED 2 Digoxin IV in the ED will continue load q 8hours x 2 doses and then oral, metoprolol 2.5mg IV with hold parameters ECHO 05/30 -holding oral OAC at this point given recent fractures and fall risk Status: Acute (2) History of fall: Problem comment: recent falls, 1 month 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 fall earlier in 2023, scalp wound question safety of usp OAC Status: Acute (3) Essential (primary) hypertension: Problem comment: -soft pressures; as low as 72/56; not symptomatic Status: Acute (4) Hypothyroidism: Problem comment: -at goal Status: Acute (5) Coronary artery disease: Problem comment: CABG x3 1996 -reviewed note by Dr. Lainez from 01/21 Status: Acute (6) Frail elderly: Problem comment: L[facility] - wheelchair dependent currently Status: Acute
--- OUTSIDE RECORDS SUMMARY | 2024-05-29 17:59 | XMS_ITS | Encounter Summary ---
Author Organization [facility] Address [address] [place] [address]. [place] [address] Care Team Providers Care Phlebotomist Prn Name Role Phone MargueriteNatalia Lauren ASHRAF Primary Care Provider [phone] Reason for Visit * Reason Comments Pain [...] [place] [address] [place] [address] [place] [address] Juancarlos Godoy DO [address] [place] [address] Referral ID Status Reason Start Date Expiration Date Visits Re quested Visits Authorized [id number] Closed 02/19/2024 02/18/2025 1 1 Encounter Details Date Type Department Care Team (Late st Contact Info) Description 02/19/2024 9:00 AM CDT Radiology Injection Office Visit [facility] [address] [place] [address] Juancarlos Godoy DO [address] [place] [id number] Osteoarthritis of shoulder region (Primary Dx) Social History Tobacco Use Types Packs/Day Years Used Date Smoking Tobacco: Never Smokeless Tobacco: Never Adolescent Education Answer Date Record ed Getting School Help Needed Not on file 11/23 Sex and Gender Information Value Date Recorded Sex Assigned at Female 11/23/2023 2:16 PM CROWN CERAMIST Gender Identity Not on file Sexual Orientation [...] Garcia RN - 02/19/2024 9:00 AM CDT [facility] RADIOFREQUENCY During office hours (8:00 am - 4:00 pm) questions or concerns may be answered by calling Spine Center Navigation Nurses at [phone]. Messages received after hours will be returned [...] WEEKS. Please call Spine Center Scheduling -- [phone] for the appointment if you don't hear from the Spine Center in the next couple days documented in this encounter Progress Notes * Gracy Muse - 02/19/2024 9:00 AM CDT Pre-procedure Intake If YES to any questions or NO to having a food mobile driver Please complete laminated checklist and leave [...] seven days? NO Do you have a food mobile driver? Yes Are you or ? NO [...] Grounding pad at the left upper back [facility]: [id number] Expires: 04-12-2025 Medications: Lidocaine 1% Lidocaine 2% [...] mLs documented in this encounter Care Teams Phlebotomist Prn Relationship Specialty Start Date End Date Natalia Everett DO [address] [place] [address] PCP - General Family Practice 02/19/24 documented as of this encounter
--- OUTSIDE RECORDS SUMMARY | 2024-05-29 17:59 | XMS_ITS | Encounter Summary ---
Author Organization [place] Address [address] [facility] [place] [address] Care Team Providers Care Ordnance Engineer Name Role Phone Natalia Everett DO Primary Care Provider [phone] Encounter Details Date Type Department Care Team [...] Sex Assigned at Female 11/23/2023 2:16 PM YARN CONDITIONER Gender Identity Not on file Sexual Orientation Not on file documented as of this encounter Plan of Treatment Not on file documented as of this encounter Visit Diagnoses Not on filedocumented in this encounter Care Teams Ordnance Engineer Relationship Specialty Start Date End Date Natalia Everett DO [address] [place] [address] PCP - General Family Practice 02/19/24 documented as of this encounter
--- OUTSIDE RECORDS SUMMARY | 2024-05-29 17:59 | XMS_ITS | Encounter Summary ---
Author Organization [facility] Address [address] [facility] [place] [address] Care Team Providers Care Toll Line Repairer Name Role Phone Natalia Everett DO Primary Care Provider [phone] Encounter Details Date Type Department Care Team (Late st Contact Info) Description 01/19/2024 Telephone [facility] [address] [place] [phone] Lor Conoey, RN Social History Tobacco Use Types Packs/Day Years Used Date Smoking Tobacco: Never Smokeless Tobacco: Never PHQ-2 Answer Date Recorded PHQ-2 Score 0 04/10/2024 Adolescent Education Answer Date Record ed Getting School Help Needed Not on file 11/23 Sex and Gender Information Value Date Recorded Sex Assigned at Female 11/23/2023 2:16 PM PATTERN CHANGER Gender Identity Not on file Sexual Orientation [...] RN Sent: 01/11/2024 3:05 PM CDT To: [facility] Procedure Support Pool Subject: [...] region documented in this encounter Care Teams Toll Line Repairer Relationship Specialty Start Date End Date Natalia Everett DO [address] [place] [address] PCP - General Family Practice 02/19/24 documented as of this encounter
--- OUTSIDE RECORDS SUMMARY | 2024-05-29 17:59 | XMS_ITS | Encounter Summary ---
Author Organization [facility] Address [address] [facility] [place] [address] Care Team Providers Care Bath Attendant Name Role Phone Natalia Everett DO Primary Care Provider [phone] Encounter Details Date Type Department Care Team [...] Sex Assigned at Female 11/23/2023 2:16 PM TELECOMMUNICATIONS LINESWORKER Gender Identity Not on file Sexual Orientation Not on file documented as of this encounter Plan of Treatment Not on file documented as of this encounter Visit Diagnoses Not on filedocumented in this encounter Care Teams Bath Attendant Relationship Specialty Start Date End Date Natalia Everett DO [address] [place] [address] PCP - General Family Practice 02/19/24 documented as of this encounter
--- OUTSIDE RECORDS SUMMARY | 2024-05-29 17:59 | XMS_ITS | Clinical Summary ---
Author Organization [facility] Address [place], [place] [address] Care Team Providers Care Railroad Accountant Name Role Phone Natalia Everett DO Primary Care Provider [phone] Allergies Active Allergy Reactions Criticality Noted Date [...] Department Care Team Description 05/29/2024 Nurse Triage [facility] [address] [place] [address] Natalia Everett Lauren, DO Fast Heartbeat 05/05/2024 Refill [facility] [address] [place] [address] Luis Antonio Acevedo MD Refill Request (Omeprazole) 04/30/2024 Lab Requisition [facility] [phone] Kristian Cortez MD 04/23/2024 Telephone [facility] [address] [place] [id number] Luis Poole MD Refill Request (Oxycodone 5mg [...] Comments Blood Pressure 138/64 10/11/2023 2:57 PM MAPPING SPECIALIST Pulse 55 10/11/2023 2:57 PM MAPPING SPECIALIST Temperature 36.6 ??C (97.8 ??F) 11/30/2022 10:[address] Respiratory Rate 16 10/13/2022 9:27 AM MAPPING SPECIALIST Oxygen Saturation 100% 10/11/2023 2:57 PM MAPPING SPECIALIST Inhaled Oxygen Concentration - - Weight 50.4 kg (111 lb 3.2 oz) 10/11/2023 2:57 P M MAPPING SPECIALIST Height 150.2 cm (4' 11.13) 10/11/2023 8:[address] Body Mass Index 22.36 10/11/2023 8:17 AM MAPPING SPECIALIST Plan of Treatment Upcoming Encounters Date Type Department Care Team (Late st Contact Info) Description 06/05/2024 11:00 AM CDT Office Visit [facility] [address] [place] [address] CamSir nickwilliam Aguilar, DO [address] [place] [address] Health Maintenance Due Date Last Done Comments [...] - 11.0 thou/cu mm 04/30/2024 8:56 AM [facility] RED BLOOD COUNT 3.63(L) 4.00 - 5.20 mil/cu mm 04/30/2024 8:56 AM [facility] HEMOGLOBIN 11.2(L) 12.0 - 16.0 g/dL 04/30/2024 8:56 AM [facility] HEMATOCRIT 34.4 33.0 - 51.0 % 04/30/2024 8:56 AM [facility] MCV 95 80 - 100 fL 04/30/2024 8:56 AM [facility] MCH 30.9 26.0 - 34.0 pg 04/30/2024 8:56 AM [facility] MCHC 32.6 32.0 - 36.0 g/dL 04/30/2024 8:56 AM [facility] RDW 13.2 11.5 - 15.5 % 04/30/2024 8:56 AM [facility] PLATELET COUNT 443(H) 140 - 440 thou/cu mm 04/30/2024 8:56 AM [facility] MPV 9.1 6.5 - 11.0 fL 04/30/2024 8:56 AM [facility] % NEUT 58.3 % 04/30/2024 8:56 AM [facility] % LYMPH 24.9 % 04/30/2024 8:56 AM [facility] % MONO 10.0 % 04/30/2024 8:56 AM [facility] % EOS 6.0 % 04/30/2024 8:56 AM [facility] % BASO 0.8 % 04/30/2024 8:56 AM [facility] ABSOLUTE NEUTROPHILS 4.3 1.7 - 7.0 thou/cu mm 04/30/2024 8:56 AM [facility] ABSOLUTE LYMPHOCYTES 1.8 0.9 - 2.9 thou/cu mm 04/30/2024 8:56 AM CDT [facility] ABSOLUTE MONOCYTES 0.7 <0.9 thou/cu mm 04/30/2024 8:56 AM CDT [facility] ABSOLUTE EOSINOPHILS 0.4 <0.5 thou/cu mm 04/30/2024 8:56 AM CDT [facility] ABSOLUTE BASOPHILS 0.1 <0.3 thou/cu mm 04/30/2024 8:56 AM CDT [facility] Blood BLOOD SPECIMEN / Unknown Butterfly / Unknown 04/30/2024 7:29 AM CDT 04/30/2024 8:38 AM CDT Kristian Cortez MD HEMATOLOGY [facility] [address] [place] [address] * (ABNORMAL) XR DXA BONE DENSITY 2 SITES AXIAL [02509.1] (04/03/2023 10:03 AM CDT) Anatomical Region Laterality [...] recommended in 3-5 years. Thais Barker PA-C [employer] [facility] 04/06/2023 Narrative 04/06/2023 1:06 PM CDT For Patients: Results are automatically released to your [employer] ([employer] account once available, in compliance with federal regulations. This means that you may see your results before your provider has had a chance to review them. Please allow 2-3 business days for your provider to comment on the results. XR DXA Bone Mineral Density (BMD) EXAM LOCATION: [facility] [address] [facility] [address] PATIENT NAME: Ingrid Granger DATE OF : [...] two scanners are made by the same metallurgy laboratory technician. PROCEDURE: Dual-energy x-ray absorptiometry performed with routine [...] Documents on File Type Date Recorded Patient Blow Up Operator Expl anation Healthcare Directive 02/12/2022 022 [...] Code Status Discussion: Reviewed Preferences Care Teams Railroad Accountant Relationship Specialty Start Date End Date Natalia Everett DO [address] [place] [address] PCP - General Family Practice 04/05/22
--- OUTSIDE RECORDS SUMMARY | 2024-05-29 17:59 | XMS_ITS | Encounter Summary ---
Author Organization [facility] Address [address] [facility] [place] [address] Care Team Providers Care Physician/Ophthalmologist Name Role Phone Natalia Everett DO Primary Care Provider [phone] Encounter Details Date Type Department Care Team (Latest Contact Info) Description 02/19/2024 Travel Social History Tobacco Use Types Packs/Day Years Used Date Smoking Tobacco: Never Smokeless Tobacco: Never Adolescent Education Answer Date Record ed Getting School Help Needed Not on file 11/23 Sex and Gender Information Value Date Recorded Sex Assigned at Female 11/23/2023 2:16 PM TRANSPLANT WORKER Gender Identity Not on file Sexual Orientation Not on file documented as of this encounter Plan of Treatment Not on file documented as of this encounter Visit Diagnoses Not on filedocumented in this encounter Care Teams Physician/Ophthalmologist Relationship Specialty Start Date End Date Natalia Everett DO [address] [place] [address] PCP - General Family Practice 02/19/24 documented as of this encounter
--- OUTSIDE RECORDS SUMMARY | 2024-05-29 17:59 | XMS_ITS | Encounter Summary ---
Author Organization [facility] Address [address] [place] [address]. [place] [address] Care Team Providers Care Buckle Sorter Name Role Phone Natalia Everett Lauren ASHRAF Primary Care Provider [phone] Reason for Visit * Reason Comments Shoulder Pain Encounter Details Date Type Department Care Team (Late st Contact Info) Description 04/10/2024 2:20 PM CDT Office Visit [facility] [address] [place] [phone] Juancarlos Godoy DO [address] [place] [address] Biceps tendinopathy, left (Primary Dx); Primary osteoarthritis [...] Sex Assigned at Female 11/23/2023 2:16 PM MAJOR ASSEMBLY INSPECTOR Gender Identity Not on file Sexual [...] Godoy DO - 04/10/2024 2:20 PM CDT [facility] Injection Requirements A speedboat driver is required for all fluoroscopically-guided injections. [...] anesthetics, iodine, or contrast dye should contact [facility] to further discuss these considerations. Patients [...] than 3.0. Please contact the Spine Center (#[phone]) if you are taking any prescription blood-thinning [...] PAIN US Tendon Sheath Injection; Future Ingrid Grangre is a 83 year old y.o. female [...] 5/5 Shoulder abduction left 5/5, right 5/5 Disease Case Manager Rn left 5/5, right 5/5 --NEUROLOGIC: Sensation to [...] arm documented in this encounter Care Teams Buckle Sorter Relationship Specialty Start Date End Date Natalia Everett DO [address] [place] [address] PCP - General Family Practice 02/19/24 documented as of this encounter
--- OUTSIDE RECORDS SUMMARY | 2024-05-29 17:59 | XMS_ITS | Clinical Summary ---
Author Organization [facility] Address [address] [place] [address] Care Team Providers Care Post Anesthesia Care Unit Nurse Name Role Phone Elsewhere, Pcp Primary Care Provider Unavailabl e Source Comments Patient records contain information from all sites at [facility]. For routine questions regarding patient records, call [phone] during business hours, M-F 8:00 AM - 5:00 PM Central Time. Record requests for emergency care only can be directed to [phone] at any time.[facility] Allergies Active Allergy Reactions Criticality [...] often do you attend chur ch or hoahaoism services? More than 4 times per year 12/26/2022 Do you belong to any clubs o r organizations such as zoroastrianism groups, unions, fraternal or athletic groups, or [...] and heating? Not hard at all 12/26/2022 [facility] - Occupational Stress [...] Sex Assigned at Female 11/29/2022 8:21 PM HVAC INSTALLER Gender Identity Female 11/29/2022 8:21 PM HVAC INSTALLER Sexual Orientation Straight 11/29/2022 8: 21 PM HVAC INSTALLER Last Filed Vital Signs Vital Sign Reading Time Taken Comments Blood Pressure 137/54 12/30/2022 9:06 AM CDT Pulse 52 12/30/2022 9:06 AM CDT Temperature - - Respiratory Rate - - Oxygen Saturation - - Inhaled Oxygen Concentration - - Weight 45.5 kg (100 lb 3.2 oz) 12/01/2022 3:23 P M HVAC INSTALLER Height 151.9 cm (4' 11.8) 12/01/2022 3:23 PM CS T Body Mass Index 19.7 12/01/2022 3:23 PM HVAC INSTALLER Plan of Treatment Health Maintenance Due Date [...] Zoster Vaccines Completed 02/19/2022, 12/07/2021 Care Teams Post Anesthesia Care Unit Nurse Relationship Specialty Start Date End Date Elsewhere, Pcp PCP - General Internal Medicine 12/30/22
--- OUTSIDE RECORDS SUMMARY | 2024-05-29 17:59 | XMS_ITS | Encounter Summary ---
Author Organization [place] Address [address] [place] [address]. [place] [address] Care Team Providers Care Microfabrication Engineer Manager Name Role Phone Natalia Everett Primary Care Provider [phone] Reason for Visit * Reason Comments Injections * Physical Medicine (Routine) - Closed Specialty Diagnoses / Procedures Referred By Oscar gloria Referred To Contact Pain Medicine / Physical Medicine and Rehab Diagnoses Biceps tendinopathy, left Other synovitis and tenosynovitis, left upper arm Left biceps tendon sheath injection under ultrasound guidance Procedures PAIN US TENDON SHEATH INJECTION SPINE US [place] [address] [place] [id number] Juancarlos Godoy DO [address] [place] [id number] Referral ID Status Reason Start Date Expiration Date Visits Re quested Visits Authorized [id number] Closed 04/12/2024 04/12/2025 1 1 Encounter Details Date Type Department Care Team (Late st Contact Info) Description 04/12/2024 9:40 AM CDT Radiology Injection Office Visit [facility] [address] [place] [address] [address] [place] [address] Juancarlos Godoy DO [address] [place] [address] [phone] Biceps tendinopathy, left; Other synovitis and tenosynovitis, [...] Sex Assigned at Female 11/23/2023 2:16 PM HEALTHCARE SALES REPRESENTATIVE Gender Identity Not on file Sexual Orientation [...] by calling Spine Center Navigation Nurses at [phone]. Messages received after hours will be returned [...] relieved by lying down, please call the [facility] to speak with a [...] mg documented in this encounter Care Teams Microfabrication Engineer Manager Relationship Specialty Start Date End Date Natalia Everett DO [address] [place] [address] PCP - General Family Practice 02/19/24 documented as of this encounter
--- OUTSIDE RECORDS SUMMARY | 2024-05-29 17:59 | XMS_ITS | Referral Summary ---
Author Organization [facility] Address [address] [place] [address] Care Team Providers Care Pattern Designer Name Role Phone Elsewhere, Pcp Primary Care Provider Unavailabl e Source Comments Patient records contain information from all sites at [facility]. For routine questions regarding patient records, call [phone] during business hours, M-F 8:00 AM - 5:00 PM Central Time. Record requests for emergency care only can be directed to [phone] at any time.[facility] Allergies Active Allergy Reactions Criticality Noted Date [...] often do you attend chur ch or jehovah's witness services? More than 4 times per year 12/26/2022 Do you belong to any clubs o r organizations such as bahai groups, unions, fraternal or athletic groups, or [...] and heating? 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 ENGINEER Gender Identity Female 11/29/2022 8:21 PM MATERIAL ENGINEER Sexual Orientation Straight 11/29/2022 8: 21 PM MATERIAL ENGINEER Last Filed Vital Signs Vital Sign Reading Time Taken Comments Blood Pressure 137/54 12/30/2022 9:06 AM CDT Pulse 52 12/30/2022 9:06 AM CDT Temperature - - Respiratory Rate - - Oxygen Saturation - - Inhaled Oxygen Concentration - - Weight 45.5 kg (100 lb 3.2 oz) 12/01/2022 3:23 P M MATERIAL ENGINEER Height 151.9 cm (4' 11.8) 12/01/2022 3:23 PM CS T Body Mass Index 19.7 12/01/2022 3:23 PM MATERIAL ENGINEER Plan of Treatment Not on file Care Teams Pattern Designer Relationship Specialty Start Date End Date Elsewhere, Pcp PCP - General Internal Medicine 12/30/22
--- OUTSIDE RECORDS SUMMARY | 2024-05-29 17:59 | XMS_ITS | Clinical Summary ---
Author Organization [place] Address [address] [place] [address] Care Team Providers Care Card Services Specialist Name Role Phone Natalia Everett DO Primary Care Provider [phone] Allergies Active Allergy Reactions Criticality Noted Date [...] previous episodes (2008, 2009); no anticoagulation. Overview: Academic Success Coordinator: Dr. Jevon Shelton ([facility]) Overview: Overview: Academic Success Coordinator: Dr. Jevon Shelton ([facility]) Overview: Academic Success Coordinator: Dr. 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
--- OUTSIDE RECORDS SUMMARY | 2024-05-29 17:59 | XMS_ITS | Referral Summary ---
Author Organization [place] Address [address] [facility] [place] [address] Care Team Providers Care Airframe Technical Officer Name Role Phone GuanacoyoungNatalia nick Lauren ASHRAF Primary Care Provider [phone] Encounters Date Type Department Care Team Description 04/12/2024 Travel 04/12/2024 9:40 AM CDT Radiology Injection Office Visit [facility] [address] [place] [phone] Juancarlos Godoy DO Biceps tendinopathy, left; Other synovitis and tenosynovitis, left upper arm 04/10/2024 Travel 04/10/2024 2:20 PM CDT Office Visit [facility] [address] [place] [phone] Juancarlos Godoy DO Biceps tendinopathy, left (Primary [...] previous episodes (2008, 2009); no anticoagulation. Overview: Welding Machine Operator Helper Arc: Dr. 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
--- OUTSIDE RECORDS SUMMARY | 2024-05-29 17:59 | XMS_ITS ---
Author Organization [facility] Address [address] [place] [address] Care Team Providers Care Jack Prizer Name Role Phone Unavailable Unavailable Unavailable Surgery Details Not on file Complications Check Surgery Details section. Procedure Estimated Blood Loss Check Surgery Details section. Procedure Findings Check Surgery Details section. Procedure Specimens Taken Check Surgery Details section.
--- NOTE | 2024-05-29 19:06 | PC.NURSE ---
shift note; pt to room @ 1725 via cart from ED. pt denies c.p or pressure, or sob. HR irreg with at fib/RVR rate variable 90's-133/min. Pt converted to NSR @ approx 1735. EKG performed and Dr. Cash notified.
[2024-05-29] MEDS: ENOXAPARIN 30 MG/0.3ML INJ SUBCUT (21:20)
[2024-05-29] MEDS: ATORVASTATIN 10 MG TABLET 20 MG PO (21:20)
[2024-05-29] MEDS: SODIUM CHLORIDE 0.9 % (FLUSH) 10 ML SYRINGE 5 ML IVF (21:21)
[2024-05-30] VITALS (15 sets, daily range): BP systolic 89–131; BP diastolic 53–80; PULSE 50–72; RESP 16–18; TEMP 36–36.9; O2SAT 94–96
--- NOTE | 2024-05-30 05:39 | PC.NURSE ---
Pt has not slept very well this shift. No complaints. Says she does this occ. VSS improved. Last B/P 131/67 HR remains 50-60. Up to BR with 1 assist with gait belt and walker. No c/o pain.
[2024-05-30] MEDS: LEVOTHYROXINE 25 MCG TABLET PO (06:37)
[2024-05-30 06:58] LABS: Chloride* 108 mmol/L (96-114)
[2024-05-30 06:59] LABS: Albumin* 3.3 g/dL (3.3-5.0); Potassium* 4.2 mmol/L (3.6-5.1); Sodium* 137 mmol/L (135-149)
[2024-05-30 07:01] LABS: Creatinine* 0.7 mg/dL (0.5-1.5); Est. Creatinine Clearance* 31.04; Estimated Glomerular Filt Rate 85 ml/min
[2024-05-30 07:02] LABS: Alanine Aminotransferase* 11 U/L (4-35); Alkaline Phosphatase* 166 U/L (40-150); Anion Gap 5 mEq/L (7-15); Aspartate Amino Transferase* 23 U/L (12-35); Bilirubin Direct* 0.2 mg/dL (0.0-0.5); Bilirubin Total* 0.5 mg/dL (0.1-1.5); Blood Urea Nitrogen* 26 mg/dL (7-30); Calcium* 8.8 mg/dL (8.4-10.6); Carbon Dioxide* 24 mmol/L (20-32); Glucose* 87 mg/dL (60-115); Total Protein* 5.9 g/dL (6.0-8.3)
[2024-05-30] MEDS: PSYLLIUM HUSK (WITH SUGAR) 12 GM PACKET PO (09:53)
[2024-05-30] MEDS: ASPIRIN 81 MG TAB.CHEW PO (09:53)
[2024-05-30] MEDS: SODIUM CHLORIDE 0.9 % (FLUSH) 10 ML SYRINGE 5 ML IVF ×2 (09:54→21:27)
--- NOTE | 2024-05-30 13:23 | P.IMPN_ITS ---
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 Improved Status: Acute (4) Hypothyroidism: Problem details: -at goal Status: Acute (5) Coronary artery disease: Problem details: CABG x3 1996 -reviewed note by Dr. Lainez from 01/21 Status: Acute (6) Frail elderly: Problem details: BATS PRISON - wheelchair dependent currently Status: Acute (7) Alkaline phosphatase elevation: Problem details: Improved. -consider outpatient workup if ongoing Status: Acute Plan Awaiting Echocardiogram. Low suspicion for ischemia Time Spent With Patient Total time spent: 40 minutes spent in chart review, counseling patient and interdisciplinary discussion Subjective Date Seen: 05/30/24 Interval history: Ingrid is seen and examined. She is feeling ok, but notes that she didn't sleep well. She states that she never really sleeps well and melatonin is not effective. She feels much better with the HR better controlled. Denies chest pain or shortness of breath at this time. Awaiting echocardiogram EXAM: General- Well appearing, NAD HEENT- NCAT Resp- CTAB CV- RRR, questionable soft murmur Extremities- Trace DARÍO Neuro- No lateralizing deficit, awake, alert and appropriately conversant Exam Const: Vital Signs, click to edit/add: Vital Signs - 24 hr 05/29/24 14:20 05/29/24 14:25 05/29/24 14:26 Temperature 96.4 F L Pulse Rate 140 H 121 H Pulse Rate [Pulse Oximeter] 176 H Pulse Rate [Right Brachial] Respiratory Rate 20 Blood Pressure 111/76 Blood Pressure [Le ft Upper Arm] 111/76 Blood Pressure [Ri ght Arm] Pulse Oximetry 97 96 97 Oxygen Delivery Me thod Room Air 05/29/24 14:30 05/29/24 14:41 05/29/24 14:45 Temperature Pulse Rate 123 H 127 H Pulse Rate [Pulse Oximeter] Pulse Rate [Right Brachial] Respiratory Rate Blood Pressure Blood Pressure [Le ft Upper Arm] Blood Pressure [Ri ght Arm] Pulse Oximetry 97 96 98 Oxygen Delivery Me thod 05/29/24 15:00 05/29/24 15:15 05/29/24 15:30 Temperature Pulse Rate 90 92 91 Pulse Rate [Pulse Oximeter] Pulse Rate [Right Brachial] Respiratory Rate Blood Pressure Blood Pressure [Le ft Upper Arm] Blood Pressure [Ri ght Arm] Pulse Oximetry 96 99 97 Oxygen Delivery Me thod 05/29/24 15:45 05/29/24 15:52 05/29/24 15:54 Temperature Pulse Rate 118 H 101 H Pulse Rate [Pulse Oximeter] Pulse Rate [Right Brachial] Respiratory Rate Blood Pressure 74/58 L 85/59 L Blood Pressure [Le ft Upper Arm] Blood Pressure [Ri ght Arm] Pulse Oximetry 97 96 Oxygen Delivery Me thod 05/29/24 16:01 05/29/24 16:08 05/29/24 16:10 Temperature Pulse Rate 98 Pulse Rate [Pulse Oximeter] Pulse Rate [Right Brachial] Respiratory Rate Blood Pressure 84/68 L 79/59 L 86/65 L Blood Pressure [Le ft Upper Arm] Blood Pressure [Ri ght Arm] Pulse Oximetry 98 Oxygen Delivery Me thod 05/29/24 16:11 05/29/24 16:13 05/29/24 16:15 Temperature Pulse Rate 118 H 120 H 96 Pulse Rate [Pulse Oximeter] Pulse Rate [Right Brachial] Respiratory Rate Blood Pressure 90/59 L Blood Pressure [Le ft Upper Arm] Blood Pressure [Ri ght Arm] Pulse Oximetry 100 97 98 Oxygen Delivery Me thod 05/29/24 16:16 05/29/24 16:18 05/29/24 16:22 Temperature Pulse Rate 156 H 121 H 107 H Pulse Rate [Pulse Oximeter] Pulse Rate [Right Brachial] Respiratory Rate Blood Pressure 103/61 86/56 L Blood Pressure [Le ft Upper Arm] Blood Pressure [Ri ght Arm] Pulse Oximetry 93 96 Oxygen Delivery Me thod 05/29/24 16:25 05/29/24 16:26 05/29/24 16:29 Temperature Pulse Rate 106 H 114 H Pulse Rate [Pulse Oximeter] Pulse Rate [Right Brachial] Respiratory Rate Blood Pressure 59/43 L 88/52 L 60/49 L Blood Pressure [Le ft Upper Arm] Blood Pressure [Ri ght Arm] Pulse Oximetry 99 99 Oxygen Delivery Me thod 05/29/24 16:30 05/29/24 16:33 05/29/24 16:34 Temperature Pulse Rate 98 106 H 114 H Pulse Rate [Pulse Oximeter] Pulse Rate [Right Brachial] Respiratory Rate Blood Pressure 82/65 L 86/51 L Blood Pressure [Le ft Upper Arm] Blood Pressure [Ri ght Arm] Pulse Oximetry 98 99 99 Oxygen Delivery Me thod 05/29/24 17:42 05/29/24 17:44 05/29/24 17:44 Temperature Pulse Rate 136 H Pulse Rate [Pulse Oximeter] Pulse Rate [Right Brachial] Respiratory Rate 18 Blood Pressure Blood Pressure [Le ft Upper Arm] Blood Pressure [Ri ght Arm] Pulse Oximetry 96 96 Oxygen Delivery Me thod Room Air Room Air 05/29/24 17:44 05/29/24 17:46 05/29/24 21:00 Temperature 96.3 F L 96.3 F L Pulse Rate 53 L Pulse Rate [Pulse Oximeter] Pulse Rate [Right Brachial] 111 H 89 Respiratory Rate 18 18 Blood Pressure Blood Pressure [Le ft Upper Arm] Blood Pressure [Ri ght Arm] 105/46 L 72/56 L Pulse Oximetry 96 96 Oxygen Delivery Me od Room Air Room Air 05/29/24 23:00 05/29/24 23:00 05/30/24 00:40 Temperature 96.4 F L Pulse Rate 50 L Pulse Rate [Pulse Oximeter] Pulse Rate [Right Brachial] 58 L 52 L Respiratory Rate Blood Pressure Blood Pressure [Le ft Upper Arm] Blood Pressure [Ri ght Arm] 87/38 L Pulse Oximetry 96 Oxygen Delivery Me thod Room Air 05/30/24 04:10 05/30/24 04:14 05/30/24 07:33 Temperature 97.5 F L 98.4 F Pulse Rate 56 L Pulse Rate [Pulse Oximeter] Pulse Rate [Right Brachial] 53 L 65 Respiratory Rate 18 18 Blood Pressure Blood Pressure [Le ft Upper Arm] Blood Pressure [Ri ght Arm] 131/67 122/80 Pulse Oximetry 96 96 Oxygen Delivery Me thod Room Air Room Air 05/30/24 09:55 05/30/24 09:58 05/30/24 11:59 Temperature 98.3 F Pulse Rate 68 Pulse Rate [Pulse Oximeter] Pulse Rate [Right Brachial] 68 72 Respiratory Rate 18 Blood Pressure Blood Pressure [Le ft Upper Arm] Blood Pressure [Ri ght Arm] 89/53 L 117/66 Pulse Oximetry 96 Oxygen Delivery Me thod Room Air Labs Labs: Laboratory Results - last 24 hr 05/29/24 05/30/24 14:38 05:43 WBC 6.86 RBC 4.11 Hgb 12.1 Hct 38.7 MCV 94 MCH 29 MCHC 31 L RDW Coeff of Alba 13.6 Plt Count 362 Neut % (Auto) 54.6 Lymph % (Auto) 30.2 Churchill % (Auto) 10.2 Eos % (Auto) 4.2 Baso % (Auto) 0.7 Neut # (Auto) 3.74 Lymph # (Auto) 2.07 Churchill # (Auto) 0.70 Eos # (Auto) 0.29 Baso # (Auto) 0.05 Abs Immat Gran (auto) 0.01 Imm/Tot Granulo (auto) 0.1 Sodium 138 137 Potassium 4.3 4.2 Chloride 104 108 Carbon Dioxide 24 24 Anion Gap 10 5 L BUN 32 H 26 Creatinine 0.8 0.7 Estimated Creat Clear 29.54 31.04 Estimated GFR 72 85 Glucose 110 87 Calcium 9.5 8.8 Magnesium 2.0 Total Bilirubin 0.6 0.5 Direct Bilirubin 0.2 AST 26 23 ALT 15 11 Alkaline Phosphatase 222 H 166 H Troponin I < 0.01 L NT-Pro-B Natriuret Pep 631 Total Protein 7.4 5.9 L Albumin 4.4 3.3 TSH 2.120
--- NOTE | 2024-05-30 20:29 | PC.NURSE ---
shift note: pt up sba/walker/gb. pt denies sob, cardiac pain or pressure. HR NSR 60-70's.
[2024-05-30] MEDS: ENOXAPARIN 30 MG/0.3ML INJ SUBCUT (21:26)
[2024-05-30] MEDS: ATORVASTATIN 10 MG TABLET 20 MG PO (21:26)
[2024-05-31] VITALS: PULSE 54
[2024-05-31 04:37] VITALS: BP 125/56; PULSE 59; RESP 16; TEMP 36.2; O2SAT 96
[2024-05-31] MEDS: LEVOTHYROXINE 25 MCG TABLET PO (06:24)
--- NOTE | 2024-05-31 06:50 | PC.NURSE ---
pt slept all night and feels good this morning. She is up with SBA and a walker and gait belt. VSS HR remains bernadine. BP are better.
[2024-05-31 07:00] VITALS: PULSE 65; RESP 16
[2024-05-31 08:58] VITALS: BP 127/63; PULSE 65; RESP 16; TEMP 36.6; O2SAT 98
[2024-05-31] MEDS: METOPROLOL SUCCINATE (XL) 25 MG TAB PO (09:12)
[2024-05-31] MEDS: PSYLLIUM HUSK (WITH SUGAR) 12 GM PACKET PO (09:12)
[2024-05-31] MEDS: ASPIRIN 81 MG TAB.CHEW PO (09:12)
--- NOTE | 2024-05-31 09:23 | PC.SOCIAL ---
Discharge planning: Called [facility] and left message for clinical nursing manager, Lu, that pt is ready for discharge back today. Called son, Valdo, who confirmed pt is living in the independent apartments but is receiving supportive services from the nurses. With son's permission, secure emailed chart information to Lu regarding hospital stay. Son will pick pt up at 12:30 today for discharge back to [facility]. cushion worker to follow up as needed.
--- NOTE | 2024-05-31 11:56 | P.DS_ITS ---
DS: Providers Provider Date Seen: 05/31/24 Date of admission: 05/29/24 17:44 Primary care physician: Natalia Everett DO Admitting Clinician: Charlotte Cash MD Consults: 05/29/24 17:44 Consult to Occupational Therapy [CONS] Routine Comment: Reason(s) for OT Consult:: Evaluate and Treat Any Restrictions?:: No Restrictions Consult to Physical Therapy [CONS] Routine Comment: Reason(s) for PT Consult:: Evaluate and Treat Any Restrictions?:: No Restrictions Consult to Services Engineer [CONS] Routine Comment: Reason for Consult:: Social Service Consult 05/29/24 18:53 Consult to Physical Therapy [CONS] Routine Comment: Reason(s) for PT Consult:: Recent Falls Any Restrictions?:: See Comment Attending Physician on discharge: Charlotte Cash MD Date of Discharge: 05/31/24 DS: Diagnosis Discharge Diagnosis (1) Atrial fibrillation with rapid ventricular response: Status: Acute Problem details: brief distant hx - no OAC at that time KAYLAN VASC 4 HASBLED 2 Digoxin loaded with IV and PO, then converted to NSR with some bradycardia so further doses held -Resumed her home dose of metoprolol and did well maintaining NSR -ECHO 05/30 showed biatrial enlargement but normal EF. She has mild to moderate TR and mild MR. 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 Improved prior to discharge OK to resume home lisinopril Continue metoprolol (4) Hypothyroidism: Status: Acute Problem details: -at goal (5) Coronary artery disease: Status: Acute Problem details: CABG x3 1996 -reviewed note by Dr. Lainez from 01/21 (6) Frail elderly: Status: Acute Problem details: BATS DETENTION - wheelchair dependent currently (7) Alkaline phosphatase elevation: Status: Acute Problem details: Improved. -consider outpatient workup if ongoing DS: Summary Hospital Course Hospital Course: Partially extend is an 83-year-old female with history of paroxysmal atrial fibrillation not on chronic anticoagulation due to falls risks who presented to the emergency department with AFib and RVR. She was mildly hypotensive and was loaded with digoxin. She was then observed on the telemetry floor and shortly thereafter converted to normal sinus rhythm. Further doses of digoxin were held and she resumed her home dosing of metoprolol 25 mg daily. We did have an echocardiogram while she was here showing biatrial enlargement which is mild, [id number] tricuspid regurgitation, mild mitral regurgitation, mild aortic regurgitation with a normal global systolic function and EF of 60-65%. She had mild amount of fluid overload/CHF on presentation which resolved. Patient states that she occasionally has short episodes of palpitations which seem very consistent with her AFib. They typically resolve within a few minutes. I recommend that she follow up with Cardiology for further strategy on managing this. Time Spent with Patient Time attestation: Total time spent providing and/or coordinating discharge services: Exam Narrative: Exam Narrative: General: Well appearing HEENT: Normocephalic, atraumatic Respiratory: Breathing is comfortable and nonlabored CV: Regular rate and rhythm, heart rate 65 Neuro: Awake, alert and oriented. No lateralizing deficits Const: Vital Signs, click to edit/add: Vital Signs - 24 hr 05/30/24 11:59 05/30/24 15:00 05/30/24 16:17 Temperature 98.3 F Pulse Rate 63 Pulse Rate [Right Brachial] 72 66 Respiratory Rate 18 Blood Pressure [Ri ght Arm] 117/66 107/62 Pulse Oximetry 96 Oxygen Delivery Me thod Room Air 05/30/24 16:55 05/30/24 17:27 05/30/24 18:31 Temperature 96.8 F L Pulse Rate Pulse Rate [Right Brachial] 66 58 L Respiratory Rate 18 Blood Pressure [Ri ght Arm] 107/62 90/58 L Pulse Oximetry 96 94 Oxygen Delivery Me thod Room Air 05/30/24 20:29 05/30/24 23:00 05/30/24 23:58 Temperature 97.5 F L 97.2 F L Pulse Rate Pulse Rate [Right Brachial] 56 L 54 L 61 Respiratory Rate 16 16 Blood Pressure [Ri ght Arm] 119/63 121/58 L Pulse Oximetry 96 96 Oxygen Delivery Me thod Room Air Room Air 05/31/24 00:00 05/31/24 04:37 05/31/24 08:58 Temperature 97.2 F L 98 F Pulse Rate 54 L Pulse Rate [Right Brachial] 59 L 65 Respiratory Rate 16 16 Blood Pressure [Ri ght Arm] 125/56 L 127/63 Pulse Oximetry 96 98 Oxygen Delivery Me thod Room Air Room Air Discharge Plan Discharge Disposition: Home, Self-Care Date of Admission: 05/29/24 17:44 Attending Provider on Discharge: Sheryl Bender Primary Care Provider: Natalia Everett Condition: Improved Anticipated Discharge Date/Time: 05/31/24 11:52 Discharge Medications: Continued acetaminophen 500 mg tablet 500 mg PO Q6H PRN aspirin 81 mg tablet,chewable 81 mg PO DAILY atorvastatin 20 mg tablet 20 mg PO HS cholecalciferol (vitamin D3) 25 mcg (1,000 unit) capsule 1,000 unit PO DAILY levothyroxine 25 mcg capsule 25 mcg PO DAILY metoprolol succinate 25 mg tablet extended release 24 hr 25 mg PO DAILY omeprazole 40 mg capsule,delayed release(DR/EC) 40 mg PO DAILY PRN Rx Instructions: TAKES SOMETIMES, HAS TROUBLE SWALLOWING calcium carbonate [Calcium 600] 600 mg calcium (1,500 mg) tablet 600 mg PO BID lisinopril 10 mg tablet 10 mg PO DAILY Rx Instructions: Take 1 Tablet (10 mg) by mouth once daily. mirtazapine 15 mg tablet 15 mg PO HS Rx Instructions: Take 1 Tablet (15 mg) by mouth at bedtime. Discharge Orders: Discharge Order (Routine); Ordered 05/31/24 Ordered By: Sheryl Bender Patient Education: A-fib (Atrial Fibrillation) (GEN) Additional Instructions: Patient should follow up with cardiology Activity Level: Activity as Tolerated Discharge Diet: Heart Healthy (2 gm sodium, low fat) Follow Up Appointments: Natalia Everett, [Primary Care Provider] - Forms: MyHealth Info Instructions
--- NOTE | 2024-05-31 12:51 | PC.NURSE ---
Patient HR in the 60's this morning. BP stable. Denies any SOB or dizziness. IV removed from right wrist. Son Valdo present for discharge. Instructions were discussed with patient and her son. All questions were answered and forms were signed. All belongings were sent. Pt escorted to front entrance via her own wheelchair and her son.
== END 2024-05-31 12:45 | disposition home or self-care (01) | DRG 310 ==
LOC: ED 16:13 → MEDSURG 17:57
PROVIDERS: Admitting Provider Family Medicine; Emergency Provider Family Medicine; PCP Family Medicine; Visit Provider Family Medicine
DX: I48.20 Chronic atrial fibrillation, unspecified (principal); Z91.81 History of falling; I10 Essential (primary) hypertension; E03.9 Hypothyroidism, unspecified; I25.10 Atherosclerotic heart disease of native coronary artery without angina pectoris; E78.5 Hyperlipidemia, unspecified; R54 Age-related physical debility; R74.8 Abnormal levels of other serum enzymes
CPT/HCPCS: 36415; 71045; 80048; 80053; 80076; 83735; 83880; 84443; 84484; 85025; 93005; 93306; 94761; 97161; 97165; 97530; 99285; 99291; 99292; A9270; J1160; J1650; J7050

== ENCOUNTER 2024-07-12 12:30 | Outpatient (RCR) | payer MEDICARE, BC, OTHER, SELFPAY | END 2024-07-12 15:49 | disposition home or self-care (01) | PROVIDERS: PCP Family Medicine; Visit Provider Family Medicine | DX: Z91.89 Other specified personal risk factors, not elsewhere classified (principal); F82 Specific developmental disorder of motor function; Z51.89 Encounter for other specified aftercare | CPT/HCPCS: 97165; 97530 ==

== ENCOUNTER 2025-05-14 08:54 | Outpatient (CLI) | payer MEDICARE, BC, OTHER, SELFPAY ==
--- NOTE | 2025-05-14 09:15 | CRLHL7_ITS ---
For Patients: As a result of the Century Cures Act, medical imaging exams and procedure reports are released immediately into your electronic medical record. You may view this report before your referring provider. If you have questions, please contact your health care provider. INDICATION: Esophageal dysphagia TECHNIQUE: Modified barium swallow. Fluoroscopic time 1 minute 37 seconds. COMPARISON: Esophagram 10/20/2023 FINDINGS/IMPRESSION: Decreased ability to pass half barium tablet due to delayed transit in the vallecula. This eventually clears with larger sips of water. No obstruction to the flow of barium. Cricopharyngeal muscle incidentally noted. No aspiration. Faint penetration. Dictated by Kyle Krause MD @ 05/14/2025 10:55:20 AM (Electronically Signed)
== END 2025-05-14 08:55 | disposition home or self-care (01) ==
LOC: RAD 08:57
PROVIDERS: PCP Family Medicine; Visit Provider Family Medicine
DX: R13.19 Other dysphagia (principal)
CPT/HCPCS: 74230

== ENCOUNTER 2025-06-27 11:00 | Outpatient (RCR) | payer MEDICARE, BC, OTHER, SELFPAY | END 2025-07-02 10:22 | disposition home or self-care (01) | PROVIDERS: PCP Family Medicine; Visit Provider Family Medicine | DX: R13.12 Dysphagia, oropharyngeal phase (principal); Z51.89 Encounter for other specified aftercare | CPT/HCPCS: 92526; 92611 ==